=== PATIENT | female | born 1935 | race African-American/Black ===

== ENCOUNTER 2018-07-10 09:00 | Day surgery (SDC) | payer OTHER, MEDICARE ==
[~2018-07-10 09:00] MED LIST: FENTANYL CITR 100 MCG/2 ML ONE; LIDOCAINE 1% MPF 5 ML VIAL ONE; PROPOFOL 200 MG/20 ML VIAL IV ONE
--- NOTE | 2018-07-10 09:08 | RAD REPORT ---
EXAM DESCRIPTION: RAD - Chest Pa And Lat (2 Views) - 07/10/2018 9:01 am CLINICAL HISTORY: preop Chest pain. COMPARISON: Chest Single View dated 07/24/2017; Chest Single View dated 03/11/2017; Chest Single View dated 01/13/2017; Chest Single View dated 10/04/2015 FINDINGS: Several calcified benign granulomata are present in the lungs. No focal infiltrate is seen . The heart is mildly enlarged in size. No displaced fractures. IMPRESSION: Mild cardiomegaly.
--- OUTSIDE RECORDS SUMMARY | 2018-07-10 09:11 | XMS REPORT | Clinical Summary ---
:1935 Author Organization [facility] Address [address] [place] [address] Care Team Providers Name Role Phone Asked, No Pcp Primary Care Provider Unavailable Allergies Not on File Medications No known medications Active Problems No known active problems Encounters Date Type Specialty Care Team Description 07/09/2018 Hospital Encounter Radiology Andrew Gray MD 07/09/2018 Office Visit Orthopedic Surgery Andrew Gray Lipoma of right upper MD Jatinder extremity (Primary Dx) after 07/09/2017 Social History Tobacco Use Types Packs/Day Years Used Date Never Smoker Alcohol Use Drinks/Week oz/Week Comments Yes 1 Glasses of wine Sex Assigned at Date Recorded Not on file Job Start Date Occupation Industry Not on file Not on file Not on file Travel History Travel Start Travel End No recent travel history available. Last Filed Vital Signs Not on file Plan of Treatment Health Maintenance Due Date Last Done Comments SHINGLES VACCINES (#1) 1984 65+ PNEUMOCOCCAL VACCINE (1 of 2 - PCV13) 1999 PNEUMOCOCCAL POLYSACCHARIDE VACCINE AGE 65 AND OVER 1999 INFLUENZA VACCINE 12/18/2017 Results Not on fileafter 07/09/2017 Insurance Payer Benefit Plan / Group Subscriber ID Type Phone Address MEDICARE MEDICARE PART A AND B xxxxxxxxxxx Medicare [place], [place] AARP AARP SUPPLEMENT xxxxxxxxxxx Commercial Advance Directives Patient has advance care planning documents on file. For more information, please contact:[address] [address]
[2018-07-10] MEDS ORDERED: LIDOCAINE 1% MPF 30 ML VIAL ONE (09:20)
[2018-07-10] MEDS ORDERED: Ringers Lactate 1,000 ML IV ONE (09:39)
[2018-07-10] MEDS ORDERED: MIDAZOLAM HCL 2 MG/2 ML INJ ONE (09:42)
[2018-07-10] MEDS ORDERED: CEFAZOLIN/SWI 1gm 1 GM/10 ML SYR ONE (09:50)
[2018-07-10] MEDS ORDERED: ONDANSETRON 4 MG/2 ML VIAL ONE (10:57)
[2018-07-10] MEDS ORDERED: KETOROLAC 30 MG/ML INJ ONE (11:35)
[2018-07-10 11:45] VITALS: TEMP 97.9
[2018-07-10] MEDS ORDERED: HYDROCODONE/APAP 7.5/325 MG TAB ONE (12:08)
[2018-07-10] MEDS ORDERED: CODEINE 30MG/APAP 300MG TAB ONE (12:10)
[2018-07-10 12:56] VITALS: BP 182/76; O2SAT 98
--- NOTE | 2018-07-10 21:24 | OP ---
Date of Procedure: 07/10/2018 Surgeon: Jarvis Castro MD Preoperative Diagnosis: Right-sided headache, rule out temporal arteritis. Postoperative Diagnosis: Right-sided headache, rule out temporal arteritis. Procedure: Right temporal artery biopsy, Doppler guided. Estimated Blood Loss: Minimal. Specimen: Right temporal artery. Finding: As above. Anesthesia: MAC. Complication: None. Disposition: The patient tolerated the procedure in stable condition and was taken to recovery in go od general condition. Description Of Procedure: The patient was brought to the OR and placed in supine position. MAC anes thesia was begun. The patient was prepped and draped in usual sterile fashion. Doppler device was u sed to localize a branch of the temporal artery at the anterior-superior part of the right ear. A 4- cm incision was made. Subcutaneous tissue was divided, artery identified, branches identified, the p roximal-distal control obtained, and then a 4-cm segment was excised and sent to Pathology. Wound wa s irrigated. Bleeding was controlled with cautery. After 4-0 silk was used to tie off the ends of t he branch, then 4-0 chromic was used to reapproximate subcutaneous tissue and close the skin. Steril e dressing was applied. The patient was awakened and taken to Recovery in good general condition. Discharge Note: The patient will go to Day Surgery and home when stable. Disposition: Home. Condition: Stable. Discharge Instructions: Resume home medications and diet. Activity as tolerated. No heavy lifting. Remove outer dressing in 2 days. Shower. Keep wound clean and dry. Keep Steri-Strips on at all t imes. Follow up in my office in 2 weeks. Call for appointment. Follow up with Dr. Cooper in 1 week. Call for appointment. MAX/PHILLIP Voice ID: [id number] Report ID: [id number]
--- NOTE | 2018-07-10 21:39 | EKG ---
Test Date: 2018-07-10 Test Time: 08:45:00 Recruitment Manager: YAYO MEASUREMENT RESULTS: Intervals: Rate: 55 MN: 178 QRSD: 82 QT: 396 QTc: 378 [place]: P: 18 MN: 178 QRS: 5 T: 27 INTERPRETIVE STATEMENTS: Sinus bradycardia Abnormal ECG Compared to ECG 07/24/2017 01:24:47 Left ventricular hypertrophy no longer present Electronically Signed On 07-10-18 21:37:00 RATE ANALYST by Brian Powell
== END 2018-07-10 12:45 | disposition home or self-care (01) ==
LOC: OR 09:00
PROVIDERS: ATTEND Surgery
PROC: 03BS0ZX Excision of Right Temporal Artery, Open Approach, Diagnostic (ICD-10-PCS; principal; 2018-07-10 09:30)
DX: R51 Headache (principal); I51.7 Cardiomegaly
CPT/HCPCS: 37609; 71046; 88305; 93005; J0690; J2250; J2405; J2704; J3010

== ENCOUNTER 2018-08-09 19:21 | Emergency (ER) | payer OTHER, MEDICARE ==
--- OUTSIDE RECORDS SUMMARY | 2018-08-09 19:23 | XMS REPORT | Clinical Summary ---
:1935 Author Organization [facility] Address [address] [place] [address] Care Team Providers Name Role Phone Asked, No Pcp Primary Care Provider Unavailable Allergies Not on File Medications No known medications Active Problems No known active problems Encounters Date Type Specialty Care Team Description 07/09/2018 Hospital Encounter Radiology Andrew Gray MD 07/09/2018 Office Visit Orthopedic Surgery Andrew Gray Lipoma of right upper MD Jatinder extremity (Primary Dx) after 08/08/2017 Social History Tobacco Use Types Packs/Day Years [...] 65 AND OVER 1999 INFLUENZA VACCINE 12/18/2017 Procedures Procedure Name Priority Date/Time Associated Diagnosis Comments MRI UPPER EXTREMITY Routine 06/11/2018 12:23 PM Results for this EXTERNAL STUDY BACKBREAKER procedure are in the results section. after 08/08/2017 Results MRI Upper Extremity External Study (06/11/2018 12:23 PM BACKBREAKER) Narrative Performed At This exam was not acquired at a [facility] facility and has not been [facility] interpreted by a [facility] Provider.The exam was imported into our imaging system for comparisons purposes. Performing Organization Address [facility] Phone Number [facility] [address] [place] [address] after 08/08/2017 Insurance Payer Benefit Plan / Group Subscriber ID Type Phone Address MEDICARE MEDICARE PART A AND B xxxxxxxxxxx Medicare [place], [place] AARP AARP SUPPLEMENT xxxxxxxxxxx Commercial Advance Directives Patient has advance care planning documents on file. For more information, please contact:Ronak [address] [place] [address]
[2018-08-09 20:30] LABS: Absolute Lymphocytes (CBC) 1.3 K/uL (0.7-4.9); Absolute Monocytes 0.6 K/uL (0.1-1.3); Absolute Neutrophil 8.7 K/uL (1.8-8.0); Basophils % 0.1 % (0-1.3); Hematocrit 30.6 % (36.0-45.0); Lymphocytes % 12.3 % (15.3-44.8); MPV 9.6 fL (7.6-11.3); Monocytes % 5.9 % (3.3-12.3); Protime INR 1.13; RBC Red Blood Cell Count 2.99 M/uL (3.86-4.86)
--- NOTE | 2018-08-09 20:30 | RAD REPORT ---
EXAM DESCRIPTION: Enzo Single View3 8:15 pm CLINICAL HISTORY: Chest pain COMPARISON: 06/2018 FINDINGS: Calcified lung granulomas are present. The lungs appear clear of acute infiltrate. The heart is normal size IMPRESSION: No acute abnormalities displayed
[2018-08-09 20:46] LABS: ALT/SGPT 32 U/L (12-78); AST/SGOT 14 U/L (15-37); Albumin 3.1 g/dL (3.4-5.0); Alkaline Phosphatase 59 U/L (45-117); BUN Blood Urea Nitrogen 20 mg/dL (7-18); Bicarbonate 29 mmol/L (21-32); Bilirubin Direct 0.1 mg/dL (0-0.2); Bilirubin Total 0.4 mg/dL (0.2-1.0); Glucose Level 235 mg/dL (74-106); Magnesium 1.7 mg/dL (1.8-2.4); NT PRO-BNP 200 pg/mL (<450); Potassium 3.5 mmol/L (3.5-5.1); Protein, Total 6.9 g/dL (6.4-8.2); Sodium Level 136 mmol/L (136-145); Troponin (Emerg Dept Use Only) < 0.02 ng/mL (0.0-0.045)
[2018-08-09] MEDS ORDERED: MAGNESIUM SULFATE 1 gm IVPB 1 GM/100 ML BAG IV ONE (21:27)
--- NOTE | 2018-08-09 22:22 | EDPHYS ---
Physician Documentation [facility] Name: Mulu Jimenez Age: 83 yrs Sex: Female : 1935 Arrival Date: 08/09/2018 Time: 19:24 Bed 8 Private MD: Wayne Cooper V ED Physician Tony Lloyd HPI: 08/09 21:08 This 83 yrs old Black Female presents to ER via Ambulatory with complaints of Chest jr8 Tightness, fast heart rate. 21:08 The patient presents with a history of heart racing. Context: The symptoms occur at jr8 rest. Onset: The symptoms/episode began/occurred acutely, today. Duration: The patient or guardian reports multiple episodes, that are intermittent, that wax and wane. Modifying factors: The symptoms are aggravated by nothing. The symptoms are alleviated by nothing. Associated signs and symptoms: Pertinent positives: chest pain. Severity of symptoms: At their worst the symptoms were mild in the emergency department the symptoms are unchanged. The patient has not experienced similar symptoms in the past. The patient has not recently seen a physician. Historical: - Allergies: 20:04 Phenergan; aa1 - Home Meds: 20:04 amlodipine 5 mg tab 1 tab once daily [Active]; atenolol 25 mg Oral tab 1 tab once daily aa1 [Active]; clonidine HCl 0.1 mg Oral tab 1 tab as needed [Active]; losartan-hydrochlorothiazide 50-12.5 mg Oral tab 1 tab once daily [Active]; prednisone 20 mg Oral tab once daily [Active]; - PMHx: 20:04 GERD; Hypertension; temporal arteritis; aa1 - PSHx: 20:04 Hysterectomy; aa1 - Immunization history:: Flu vaccine is not up to date. - Social history:: Smoking status: Patient/guardian denies using tobacco. - Ebola Screening: : No symptoms or risks identified at this time. ROS: 21:08 Eyes: Negative for injury, pain, redness, and discharge, ENT: Negative for injury, jr8 pain, and discharge, Neck: Negative for injury, pain, and swelling, Respiratory: Negative for shortness of breath, cough, wheezing, and pleuritic chest pain, Abdomen/GI: Negative for abdominal pain, nausea, vomiting, diarrhea, and constipation, Back: Negative for injury and pain, MS/Extremity: Negative for injury and deformity, Skin: Negative for injury, rash, and discoloration, Neuro: Negative for headache, weakness, numbness, tingling, and seizure. 21:08 Cardiovascular: Positive for chest pain, palpitations, Negative for edema, orthopnea, paroxysmal nocturnal dyspnea. Exam: 21:08 Eyes: Pupils equal round and reactive to light, extra-ocular motions intact. Lids and jr8 lashes normal. Conjunctiva and sclera are non-icteric and not injected. Cornea within normal limits. Periorbital areas with no swelling, redness, or edema. ENT: Nares patent. No nasal discharge, no septal abnormalities noted. Tympanic membranes are normal and external auditory canals are clear. Oropharynx with no redness, swelling, or masses, exudates, or evidence of obstruction, uvula midline. Mucous membranes moist. Neck: Trachea midline, no thyromegaly or masses palpated, and no cervical lymphadenopathy. Supple, full range of motion without nuchal rigidity, or vertebral point tenderness. No Meningismus. Chest/axilla: Normal chest wall appearance and motion. Nontender with no deformity. No lesions are appreciated. Cardiovascular: Regular rate and rhythm with a normal S1 and S2. No gallops, murmurs, or rubs. Normal PMI, no JVD. No pulse deficits. Respiratory: Lungs have equal breath sounds bilaterally, clear to auscultation and percussion. No rales, rhonchi or wheezes noted. No increased work of breathing, no retractions or nasal flaring. Abdomen/GI: Soft, non-tender, with normal bowel sounds. No distension or tympany. No guarding or rebound. No evidence of tenderness throughout. Back: No spinal tenderness. No costovertebral tenderness. Full range of motion. Skin: Warm, dry with normal turgor. Normal color with no rashes, no lesions, and no evidence of cellulitis. MS/ Extremity: Pulses equal, no cyanosis. Neurovascular intact. Full, normal range of motion. Neuro: Awake and alert, GCS 15, oriented to person, place, time, and situation. Cranial nerves II-XII grossly intact. Motor strength 5/5 in all extremities. Sensory grossly intact. Cerebellar exam normal. Normal gait. Vital Signs: 19:35 BP 139 / 76; Pulse 89; Resp 18; Temp 99.3; Pulse Ox 98% on R/A; Weight 71.21 kg; Height aa1 5 ft. 5 in. (165.10 cm); Pain 0/10; 20:38 BP 123 / 74; Pulse 77; Resp 16; Pulse Ox 98% on R/A; Pain 0/10; aa1 21:42 BP 140 / 80; Pulse 71; Resp 16; Temp 98.8; Pulse Ox 96% on R/A; Pain 0/10; aa1 22:31 BP 135 / 70; Pulse 69; Resp 16; Temp 98.7; Pulse Ox 98% on R/A; Pain 0/10; aa1 19:35 Body Mass Index 26.13 (71.21 kg, 165.10 cm) aa1 MDM: 19:54 Patient medically screened. jr8 21:52 Data reviewed: vital signs, nurses notes, lab test result(s), EKG, radiologic studies, jr8 plain films. Data interpreted: Pulse oximetry: on room air is 96 %. Interpretation: normal. Counseling: I had a detailed discussion with the patient and/or guardian regarding: the historical points, exam findings, and any diagnostic results supporting the discharge/admit diagnosis, lab results, radiology results, the need for outpatient follow up, a cost controller, a family practitioner, to return to the emergency department if symptoms worsen or persist or if there are any questions or concerns that arise at home. Response to treatment: the patient's symptoms have resolved after treatment. 08/09 19:54 Order name: Basic Metabolic Panel; Complete Time: 21:08/09 19:54 Order name: CBC with Diff; Complete Time: 21:08/09 19:54 Order name: LFT's; Complete Time: 21:08/09 19:54 Order name: Magnesium; Complete Time: 21:08/09 19:54 Order name: NT PRO-BNP; Complete Time: 21:08/09 19:54 Order name: PT-INR; Complete Time: 21:08/09 19:54 Order name: Troponin (emerg Dept Use Only); Complete Time: 21:08/09 19:54 Order name: XRAY Chest (1 view); Complete Time: 21:08/09 19:54 Order name: EKG; Complete Time: 19:55 08/09 19:54 Order name: Cardiac monitoring; Complete Time: 19:55 08/09 19:54 Order name: EKG - Nurse/Tech; Complete Time: 19:55 08/09 19:54 Order name: IV Saline Lock; Complete Time: 20:22 08/09 19:54 Order name: Labs collected and sent; Complete Time: 20:08/09 19:54 Order name: O2 Per Protocol; Complete Time: 19:55 08/09 19:54 Order name: O2 Sat Monitoring; Complete Time: 19:55 Administered Medications: 21:23 Drug: Magnesium Sulfate 1 grams Route: IVPB; Infused Over: 1 hrs; Site: left hand; aa1 22:25 Follow up: IV Status: Completed infusion aa1 Disposition: 08/09/18 22:22 Discharged to Home. Impression: Palpitations. - Condition is Stable. - Discharge Instructions: Palpitations. - Medication Reconciliation Form, Thank You Letter, Antibiotic Education, Prescription Opioid Use form. - Follow up: Wayne Cooper; When: 2 - 3 days; Reason: Recheck today's complaints, Continuance of care, Re-evaluation by your physician. Follow up: Brian Powell; When: 2 - 3 days; Reason: Recheck today's complaints, Continuance of care, Re-evaluation by your physician. - Problem is new. - Symptoms are resolved. Addendum: 08/13/2018 21:57 Co-signature as Attending Physician, Tony Lloyd MD. g s Signatures: Dispatcher [employer] [facility] Ana Laura Duron RN RN aa1 John Ochoa PA PA jr8 Tony Lloyd MD MD Corrections: (The following items were deleted from the chart) 08/09 22:36 22:22 08/09/2018 22:22 Discharged to Home. Impression: Palpitations. Condition is aa1 Stable. Discharge Instructions: Palpitations. Forms are Medication Reconciliation Form, Thank You Letter, Antibiotic Education, Prescription Opioid Use. Follow up: Wayne Cooper; When: 2 - 3 days; Reason: Recheck today's complaints, Continuance of care, Re-evaluation by your physician. Follow up: Brian Powell; When: 2 - 3 days; Reason: Recheck today's complaints, Continuance of care, Re-evaluation by your physician. Problem is new. Symptoms are resolved. jr8
--- NOTE | 2018-08-09 22:22 | ER ---
Nurse's Notes [facility] Name: Mulu Jimenez Age: 83 yrs Sex: Female : 1935 Arrival Date: 08/09/2018 Time: 19:24 Bed 8 Private MD: Wayne Cooper V Diagnosis: Palpitations Presentation: 08/09 19:35 Presenting complaint: Patient states: int chest pressure and palpitations since 1700 aa1 this evening. Denies pain. States, "I just get a little pressure every now and then and then I feel like my heart flutters. Denies SOB. Pt smiling in triage. Reports she was recently started on prednisone for temporal arteritis and has never taken it before and is unsure if that might be related to her symptoms. Transition of care: patient was not received from another setting of care. Onset of symptoms was August 09, 2018 at 17:00. Risk Assessment: Do you want to hurt yourself or someone else? Patient reports no desire to harm self or others. Initial Sepsis Screen: Does the patient meet any 2 criteria? No. Patient's initial sepsis screen is negative. Does the patient have a suspected source of infection? No. Patient's initial sepsis screen is negative. Care prior to arrival: None. 19:35 Method Of Arrival: Ambulatory aa1 19:35 Acuity: ROMINA 3 aa1 Historical: - Allergies: 20:04 Phenergan; aa1 - Home Meds: 20:04 amlodipine 5 mg tab 1 tab once daily [Active]; atenolol 25 mg Oral tab 1 tab once daily aa1 [Active]; clonidine HCl 0.1 mg Oral tab 1 tab as needed [Active]; losartan-hydrochlorothiazide 50-12.5 mg Oral tab 1 tab once daily [Active]; prednisone 20 mg Oral tab once daily [Active]; - PMHx: 20:04 GERD; Hypertension; temporal arteritis; aa1 - PSHx: 20:04 Hysterectomy; aa1 - Immunization history:: Flu vaccine is not up to date. - Social history:: Smoking status: Patient/guardian denies using tobacco. - Ebola Screening: : No symptoms or risks identified at this time. Screenin:40 Abuse screen: Denies threats or abuse. Denies injuries from another. Nutritional aa1 screening: No deficits noted. On. Tuberculosis screening: No symptoms or risk factors identified. Fall Risk None identified. Assessment: 19:40 General: Appears in no apparent distress. comfortable, Behavior is calm, cooperative, aa1 appropriate for age. Pain: Complains of pain in diaphragm and xyphoid area Pain does not radiate. Pain currently is 0 out of 10 on a pain scale. Quality of pain is described as pressure, Pain began 3 hours ago. Is intermittent. Neuro: Level of Consciousness is awake, alert, obeys commands, Oriented to person, place, time, situation. Cardiovascular: Reports palpitations, Heart tones S1 S2 present Capillary refill < 3 seconds Clubbing of nail beds is absent JVD is absent Patient's skin is warm and dry. Rhythm is regular. Respiratory: Airway is patent Respiratory effort is even, unlabored, Respiratory pattern is regular, symmetrical. GI: No signs and/or symptoms were reported involving the gastrointestinal system. : No signs and/or symptoms were reported regarding the genitourinary system. EENT: No signs and/or symptoms were reported regarding the EENT system. Derm: Skin is intact, is healthy with good turgor, Skin is pink, warm \\T\\ dry. 20:38 Reassessment: Patient appears in no apparent distress at this time. Patient and/or aa1 family updated on plan of care and expected duration. Pain level reassessed. Patient is alert, oriented x 3, equal unlabored respirations, skin warm/dry/pink. Awaiting lab results. 21:42 Reassessment: Patient appears in no apparent distress at this time. Patient and/or aa1 family updated on plan of care and expected duration. Pain level reassessed. Patient is alert, oriented x 3, equal unlabored respirations, skin warm/dry/pink. IV magnesium infusing; will d/c home once complete. 22:31 Reassessment: Patient appears in no apparent distress at this time. Patient is alert, aa1 oriented x 3, equal unlabored respirations, skin warm/dry/pink. Discussed d/c \\T\\ f/u instructions with pt; denies questions or concerns at this time. Amb to lobby with steady gait Patient denies pain at this time. Patient states feeling better. Vital Signs: 19:35 BP 139 / 76; Pulse 89; Resp 18; Temp 99.3; Pulse Ox 98% on R/A; Weight 71.21 kg; Height aa1 5 ft. 5 in. (165.10 cm); Pain 0/10; 20:38 BP 123 / 74; Pulse 77; Resp 16; Pulse Ox 98% on R/A; Pain 0/10; aa1 21:42 BP 140 / 80; Pulse 71; Resp 16; Temp 98.8; Pulse Ox 96% on R/A; Pain 0/10; aa1 22:31 BP 135 / 70; Pulse 69; Resp 16; Temp 98.7; Pulse Ox 98% on R/A; Pain 0/10; aa1 19:35 Body Mass Index 26.13 (71.21 kg, 165.10 cm) aa1 ED Course: 19:24 Patient arrived in ED. mr 19:24 Wayne Cooper MD is Private Physician. mr 19:27 [facility] jr8 19:27 Tony Lloyd MD is Attending Physician. jr8 19:35 Arm band placed on right wrist. aa1 19:40 Patient has correct armband on for positive identification. Placed in gown. Bed in low aa1 position. Call light in reach. desk monitor on. Pulse ox on. NIBP on. Warm blanket given. 19:40 EKG done, by ED staff, reviewed by John KNAPP. Patient maintains SpO2 saturation aa1 greater than 95% on room air. 19:55 Ana Laura Duron, RN is Primary Nurse. aa1 19:59 Triage completed. aa1 20:15 XRAY Chest (1 view) In Process Unspecified. EDMS 20:21 Inserted saline lock: 22 gauge in left hand, using aseptic technique. Blood collected. oe 22:22 Wayne Cooper MD is Referral Physician. jr8 22:22 Brian Powell MD is Referral Physician. jr8 22:31 No provider procedures requiring assistance completed. IV discontinued, intact, aa1 bleeding controlled, No redness/swelling at site. Pressure dressing applied. Administered Medications: 21:23 Drug: Magnesium Sulfate 1 grams Route: IVPB; Infused Over: 1 hrs; Site: left hand; aa1 22:25 Follow up: IV Status: Completed infusion aa1 Outcome: 22:22 Discharge ordered by . jr8 22:31 Discharged to home ambulatory, with friend. aa1 22:31 Condition: good 22:31 Discharge instructions given to patient, Instructed on discharge instructions, follow up and referral plans. Demonstrated understanding of instructions, follow-up care. 22:36 Patient left the ED. aa1 Signatures: Dispatcher [employer] Ana Laura Dsouza RN RN aa1 Ginny Javier mr John Ochoa PA PA jr8 Rk Borjas
[2018-08-09 23:50] VITALS: BP 135/70; TEMP 98.7; O2SAT 98
--- NOTE | 2018-08-10 09:41 | EKG ---
Test Date: 2018-08-09 Test Time: 19:41:51 Edge Kitter: IGOR MEASUREMENT RESULTS: Intervals: Rate: 86 HI: 148 QRSD: 76 QT: 334 QTc: 399 [place]: P: 4 HI: 148 QRS: -6 T: 9 INTERPRETIVE STATEMENTS: Normal sinus rhythm Moderate voltage criteria for LVH, may be normal variant Borderline ECG Compared to ECG 07/10/2018 08:45:00 Left ventricular hypertrophy now present Sinus bradycardia no longer present Electronically Signed On 08-10-18 09:39:59 CDT by Brian Powell
== END 2018-08-09 22:36 | disposition home or self-care (01) ==
LOC: ER 19:21
DX: R00.2 Palpitations (principal); I10 Essential (primary) hypertension; K21.9 Gastro-esophageal reflux disease without esophagitis; Z88.8 Allergy status to other drugs, medicaments and biological substances
CPT/HCPCS: 96365; 93005; 85025; 80048; 36415; 83735; 85610; 80076; 84484; 83880; 71045; 99285; J3475

== ENCOUNTER 2019-03-27 05:26 | Emergency (ER) | payer OTHER, MEDICARE ==
--- NOTE | 2019-03-27 06:26 | ER ---
Nurse's Notes [facility] Name: Mulu Jimneez Age: 83 yrs Sex: Female : 1935 Arrival Date: 03/27/2019 Time: 05:27 Bed 17 Private MD: Diagnosis: Essential (primary) hypertension Presentation: 03/27 05:30 Presenting complaint: Patient states: "I was awakened from sleep an hour ago due to cc3 headache and ringing in both of my ears which usually happens when my blood pressure reading is high. I also feel nauseated and chest heaviness". Transition of care: patient was not received from another setting of care. Onset of symptoms was March 27, 2019 at 04:30. Risk Assessment: Do you want to hurt yourself or someone else? Patient reports no desire to harm self or others. Initial Sepsis Screen: Does the patient meet any 2 criteria? No. Patient's initial sepsis screen is negative. Does the patient have a suspected source of infection? No. Patient's initial sepsis screen is negative. Care prior to arrival: None. 05:30 Method Of Arrival: Ambulatory cc3 05:30 Acuity: ROMINA 3 cc3 Triage Assessment: 05:30 General: Appears in no apparent distress. uncomfortable, Behavior is calm, cooperative, cc3 appropriate for age. Pain: Complains of pain in head Pain currently is 6 out of 10 on a pain scale. Quality of pain is described as aching, Pain began 1 hour ago. EENT: No signs and/or symptoms were reported regarding the EENT system. Neuro: Level of Consciousness is awake, alert, obeys commands, Oriented to person, place, time, situation, Appropriate for age. Cardiovascular: Heart tones S1 S2 present Capillary refill < 3 seconds in bilateral fingers Patient's skin is warm and dry. Chest pain quality is heaviness. Respiratory: Airway is patent Respiratory effort is even, unlabored, Respiratory pattern is regular, symmetrical, Breath sounds are clear bilaterally. GI: Abdomen is round non-distended, Bowel sounds present X 4 quads. Abd is soft and non tender X 4 quads. : No signs and/or symptoms were reported regarding the genitourinary system. Derm: Skin is intact, is healthy with good turgor, Skin is normal, black. Musculoskeletal: Circulation, motion, and sensation intact. Range of motion: intact in all extremities. Historical: - Allergies: 05:30 Phenergan; cc3 - Home Meds: 05:30 amlodipine 5 mg tab 1 tab once daily [Active]; atenolol 25 mg Oral tab 1 tab once daily cc3 [Active]; clonidine HCl 0.1 mg Oral tab 1 tab as needed [Active]; losartan-hydrochlorothiazide 50-12.5 mg Oral tab 1 tab once daily [Active]; prednisone 20 mg Oral tab once daily [Active]; - PMHx: 05:30 GERD; Hypertension; Temporal Arteritis; cc3 - Immunization history:: Adult Immunizations not up to date. - Social history:: Smoking status: Patient/guardian denies using tobacco, but has a distant history of tobacco abuse. - Ebola Screening: : No symptoms or risks identified at this time. Screenin:30 Abuse screen: Denies threats or abuse. Denies injuries from another. Nutritional cc3 screening: No deficits noted. Tuberculosis screening: No symptoms or risk factors identified. Fall Risk Ambulatory Aid- None/Bed Rest/Nurse Assist (0 pts). Gait- Normal/Bed Rest/Wheelchair (0 pts) Mental Status- Oriented to own ability (0 pts). Assessment: 05:30 General: see triage assessment. cc3 06:45 Reassessment: Patient appears in no apparent distress at this time. Patient and/or cc3 family updated on plan of care and expected duration. Pain level reassessed. Patient is alert, oriented x 3, equal unlabored respirations, skin warm/dry/pink. DIRECTOR OF REGIONAL SALES Michelle discharged the patient home with prescription given. No IV cannula in situ. Patient left ER vitally stable and ambulatory. NO valuables left in the patient's room. Patient denies pain at this time. Patient states feeling better. Patient states symptoms have improved. Vital Signs: 05:30 BP 183 / 86; Pulse 70; Resp 18 S; Temp 97.9(O); Pulse Ox 100% on R/A; Weight 72.12 kg cc3 (R); Height 5 ft. 5 in. (165.10 cm) (R); Pain 6/10; 06:15 BP 150 / 67; Pulse 62; Resp 17 S; Pulse Ox 100% on R/A; cc3 06:45 BP 144 / 66; Pulse 62; Resp 15 S; Pulse Ox 99% on R/A; Pain 0/10; cc3 05:30 Body Mass Index 26.46 (72.12 kg, 165.10 cm) cc3 ED Course: 05:27 Patient arrived in ED. ds1 05:30 Patient has correct armband on for positive identification. Placed in gown. Bed in low cc3 position. Call light in reach. Side rails up X2. ekg monitor on. Pulse ox on. NIBP on. 05:30 Arm band placed on right wrist. Patient notified of wait time. EKG completed in triage. cc3 Results shown to MD. 05:41 Yessi Cross is Primary Nurse. cc3 05:42 Hugh Brothers MD is Attending Physician. pkl 05:47 Triage completed. cc3 06:11 Michelle Faria FNP-C is PHCP. snw 06:11 Hugh Brothers MD is Attending Physician. snw 06:20 Wayne Cooper MD is Referral Physician. snw 06:45 No provider procedures requiring assistance completed. Patient did not have IV access cc3 during this emergency room visit. Administered Medications: No medications were administered Outcome: 06:25 Discharge ordered by MD. snw 06:45 Discharged to home ambulatory. cc3 06:45 Condition: stable 06:45 Discharge instructions given to patient, Instructed on discharge instructions, follow up and referral plans. medication usage, Demonstrated understanding of instructions, follow-up care, medications, Prescriptions given X 1. 06:47 Patient left the ED. cc3 Signatures: Hugh Brothers MD MD pkMichelle Workman FNP-C INFORMATION ASSURANCE MANAGER-Csnw Ama Smith ds1 Yessi Cross cc3 Corrections: (The following items were deleted from the chart) 05:53 05:30 Presenting complaint: Patient states: "I was awakened from sleep an hour ago due cc3 to headache and ringing in both of my ears which usually happens when my blood pressure reading is high. I also feel chest heaviness" cc3
--- NOTE | 2019-03-27 06:27 | EDPHYS ---
Physician Documentation [facility] Name: Mulu Jimenez Age: 83 yrs Sex: Female : 1935 Arrival Date: 03/27/2019 Time: 05:27 Bed 17 Private MD: ED Physician Hugh Brothers HPI: 03/27 07:08 This 83 yrs old Black Female presents to ER via Ambulatory with complaints of High snw Blood Pressure. 07:08 The patient has elevated blood pressure and discovered this at home, with a home snw device. Onset: The symptoms/episode began/occurred suddenly. Modifying factors: The symptoms are alleviated by clonidine prn. Associated signs and symptoms: The patient has no apparent associated signs or symptoms. Severity of symptoms:. Severity of symptoms: At its worst the blood pressure was moderate. The patient has experienced similar episodes in the past. The patient has been recently seen by a physician: the patient's primary care provider, Dr. Cooper. pt is aware she can take clonidine 0.1mg BID prn but did not know she could take them closer than 12 hours apart. Historical: - Allergies: 05:30 Phenergan; cc3 - Home Meds: 05:30 amlodipine 5 mg tab 1 tab once daily [Active]; atenolol 25 mg Oral tab 1 tab once daily cc3 [Active]; clonidine HCl 0.1 mg Oral tab 1 tab as needed [Active]; losartan-hydrochlorothiazide 50-12.5 mg Oral tab 1 tab once daily [Active]; prednisone 20 mg Oral tab once daily [Active]; - PMHx: 05:30 GERD; Hypertension; Temporal Arteritis; cc3 - Immunization history:: Adult Immunizations not up to date. - Social history:: Smoking status: Patient/guardian denies using tobacco, but has a distant history of tobacco abuse. - Ebola Screening: : No symptoms or risks identified at this time. ROS: 07:04 Constitutional: Negative for fever, chills, and weight loss, pt states she gets ringing snw in her ears and awakes from sleep when her pressure is high Eyes: Negative for injury, pain, redness, and discharge, ENT: Negative for injury, pain, and discharge, Neck: Negative for injury, pain, and swelling, Cardiovascular: Negative for chest pain, palpitations, and edema, Respiratory: Negative for shortness of breath, cough, wheezing, and pleuritic chest pain, Abdomen/GI: Negative for abdominal pain, nausea, vomiting, diarrhea, and constipation, Back: Negative for injury and pain, : Negative for injury, bleeding, discharge, and swelling, MS/Extremity: Negative for injury and deformity, Skin: Negative for injury, rash, and discoloration, Neuro: Negative for headache, weakness, numbness, tingling, and seizure. Exam: 06:32 Constitutional: This is a well developed, well nourished patient who is awake, alert, snw and in no acute distress. Head/Face: Normocephalic, atraumatic. Eyes: Pupils equal round and reactive to light, extra-ocular motions intact. Lids and lashes normal. Conjunctiva and sclera are non-icteric and not injected. Cornea within normal limits. Periorbital areas with no swelling, redness, or edema. ENT: Nares patent. No nasal discharge, no septal abnormalities noted. Tympanic membranes are normal and external auditory canals are clear. Oropharynx with no redness, swelling, or masses, exudates, or evidence of obstruction, uvula midline. Mucous membranes moist. Neck: Trachea midline, no thyromegaly or masses palpated, and no cervical lymphadenopathy. Supple, full range of motion without nuchal rigidity, or vertebral point tenderness. No Meningismus. Chest/axilla: Normal chest wall appearance and motion. Nontender with no deformity. No lesions are appreciated. Cardiovascular: Regular rate and rhythm with a normal S1 and S2. No gallops, murmurs, or rubs. Normal PMI, no JVD. No pulse deficits. Respiratory: Lungs have equal breath sounds bilaterally, clear to auscultation and percussion. No rales, rhonchi or wheezes noted. No increased work of breathing, no retractions or nasal flaring. Back: No spinal tenderness. No costovertebral tenderness. Full range of motion. Skin: Warm, dry with normal turgor. Normal color with no rashes, no lesions, and no evidence of cellulitis. MS/ Extremity: Pulses equal, no cyanosis. Neurovascular intact. Full, normal range of motion. Neuro: Awake and alert, GCS 15, oriented to person, place, time, and situation. Cranial nerves II-XII grossly intact. Motor strength 5/5 in all extremities. Sensory grossly intact. Cerebellar exam normal. Normal gait. Psych: Awake, alert, with orientation to person, place and time. Behavior, mood, and affect are within normal limits. Vital Signs: 05:30 BP 183 / 86; Pulse 70; Resp 18 S; Temp 97.9(O); Pulse Ox 100% on R/A; Weight 72.12 kg cc3 (R); Height 5 ft. 5 in. (165.10 cm) (R); Pain 6/10; 06:15 BP 150 / 67; Pulse 62; Resp 17 S; Pulse Ox 100% on R/A; cc3 06:45 BP 144 / 66; Pulse 62; Resp 15 S; Pulse Ox 99% on R/A; Pain 0/10; cc3 05:30 Body Mass Index 26.46 (72.12 kg, 165.10 cm) cc3 MDM: 05:42 Patient medically screened. pkl 06:33 Data reviewed: vital signs, nurses notes. Data interpreted: Pulse oximetry: on room air snw is 100 %. Interpretation: normal. Counseling: I had a detailed discussion with the patient and/or guardian regarding: the historical points, exam findings, and any diagnostic results supporting the discharge/admit diagnosis, the presence of at least one elevated blood pressure reading (>120/80) during this emergency department visit, the need for outpatient follow up, for definitive care, to return to the emergency department if symptoms worsen or persist or if there are any questions or concerns that arise at home. Special discussion: I have referred the patient to see his PCP for further evaluation of high blood pressure. Based on the history and exam findings, there is no indication for further emergent testing or inpatient evaluation. I discussed with the patient/guardian the need to see the primary care provider for further evaluation of the symptoms. Administered Medications: No medications were administered Disposition: 03/27/19 06:25 Discharged to Home. Impression: Essential (primary) hypertension. - Condition is Stable. - Discharge Instructions: Hypertension, Managing Your Hypertension. - Prescriptions for Clonidine 0.1 mg Oral Tablet - take 1 tablet by ORAL route every 12 hours; 60 tablet. - Medication Reconciliation Form, Thank You Letter, Antibiotic Education, Prescription Opioid Use form. - Follow up: Wayne Cooper MD; When: 2 - 3 days; Reason: Recheck today's complaints, Continuance of care, Re-evaluation by your physician. Follow up: Emergency Department; When: As needed; Reason: Worsening of condition. Signatures: Hugh Brothers MD MD pkl Therrien, Shelly, [employer] [employer] Rosalba Crosse cc3 Corrections: (The following items were deleted from the chart) 06:47 06:25 03/27/2019 06:25 Discharged to Home. Impression: Essential (primary) cc3 hypertension. Condition is Stable. Forms are Medication Reconciliation Form, Thank You Letter, Antibiotic Education, Prescription Opioid Use. Follow up: Wayne Cooper; When: 2 - 3 days; Reason: Recheck today's complaints, Continuance of care, Re-evaluation by your physician. Follow up: Emergency Department; When: As needed; Reason: Worsening of condition. snw
[2019-03-27 07:11] VITALS: BP 150/67; TEMP 97.9; O2SAT 100
--- NOTE | 2019-03-29 12:52 | EKG ---
Test Date: 2019-03-27 Test Time: 05:53:39 Wastewater Treatment Engineer: MARIN MEASUREMENT RESULTS: Intervals: Rate: 60 UT: 234 QRSD: 80 QT: 410 QTc: 410 [place]: P: 42 UT: 234 QRS: -5 T: 23 INTERPRETIVE STATEMENTS: Sinus rhythm with 1st degree AV block Minimal voltage criteria for LVH, may be normal variant Cannot rule out Anterior infarct, age undetermined Abnormal ECG Compared to ECG 08/09/2018 19:41:51 First degree AV block now present Myocardial infarct finding now present Electronically Signed On 03-29-19 12:46:03 SCRAP SAWYER by Yoan Perez
== END 2019-03-27 06:47 | disposition home or self-care (01) ==
LOC: ER 05:26
DX: I10 Essential (primary) hypertension (principal); K21.9 Gastro-esophageal reflux disease without esophagitis; Z88.8 Allergy status to other drugs, medicaments and biological substances
CPT/HCPCS: 93005; 99284

== ENCOUNTER 2019-04-28 05:10 | Emergency (ER) | payer OTHER, MEDICARE ==
[2019-04-28] MEDS ORDERED: HYDRALAZINE HCL 20 MG/ML VIAL ONE (05:32)
--- NOTE | 2019-04-28 06:39 | ER ---
Nurse's Notes [facility] Name: Mulu Jimenez Age: 83 yrs Sex: Female : 1935 Arrival Date: 04/28/2019 Time: 05:15 Bed 6 Private MD: Diagnosis: Hypertensive urgency Presentation: 04/28 05:23 Presenting complaint: Patient states: she woke up and didn't feel well so she checked aa1 her BP and it was 199/91. Reports taking her clonidine which improved BP to 170's systolic but then it started to come back up again 45 mins later. C/O headache 12/27. Denies any other symptoms. Transition of care: patient was not received from another setting of care. Onset of symptoms was April 28, 2019. Risk Assessment: Do you want to hurt yourself or someone else? Patient reports no desire to harm self or others. Initial Sepsis Screen: Does the patient meet any 2 criteria? No. Patient's initial sepsis screen is negative. Does the patient have a suspected source of infection? No. Patient's initial sepsis screen is negative. Care prior to arrival: None. 05:23 Method Of Arrival: Ambulatory aa1 05:23 Acuity: ROMINA 3 aa1 Triage Assessment: 05:26 General: Appears in no apparent distress. comfortable, Behavior is calm, cooperative, aa1 appropriate for age. Historical: - Allergies: 05:26 Phenergan; aa1 - Home Meds: 05:26 amlodipine 5 mg tab 1 tab once daily [Active]; atenolol 25 mg Oral tab 1 tab once daily aa1 [Active]; clonidine HCl 0.1 mg Oral tab 1 tab as needed [Active]; 07:50 Edarbi oral oral [Active]; aa5 - PMHx: 05:26 GERD; Hypertension; Temporal Arteritis; aa1 - PSHx: 05:26 None; aa1 - Immunization history:: Flu vaccine is not up to date. - Social history:: Smoking status: Patient/guardian denies using tobacco. - Ebola Screening: : No symptoms or risks identified at this time. Screenin:40 Abuse screen: Denies threats or abuse. Nutritional screening: No deficits noted. jb4 Tuberculosis screening: No symptoms or risk factors identified. Fall Risk None identified. Assessment: 05:40 General: Appears in no apparent distress. comfortable, Behavior is calm, cooperative, jb4 appropriate for age. Pain: Complains of pain in headache. Pain does not radiate. Pain currently is 8 out of 10 on a pain scale. Neuro: Level of Consciousness is awake, alert, obeys commands, Oriented to person, place, time, situation. Cardiovascular: Patient's skin is warm and dry. Respiratory: Airway is patent Respiratory effort is even, unlabored, Respiratory pattern is regular, symmetrical. GI: No signs and/or symptoms were reported involving the gastrointestinal system. : No signs and/or symptoms were reported regarding the genitourinary system. EENT: No signs and/or symptoms were reported regarding the EENT system. Derm: Skin is intact, Skin is dry, Skin is normal, Skin temperature is warm. Musculoskeletal: Circulation, motion, and sensation intact. Range of motion: intact in all extremities. 06:18 Reassessment: Patient appears in no apparent distress at this time. Patient and/or jb4 family updated on plan of care and expected duration. Pain level reassessed. Patient is alert, oriented x 3, equal unlabored respirations, skin warm/dry/pink. Patient denies pain at this time. 06:52 Reassessment: Patient appears in no apparent distress at this time. Patient and/or jb4 family updated on plan of care and expected duration. Pain level reassessed. Patient is alert, oriented x 3, equal unlabored respirations, skin warm/dry/pink. D/c pending, pt being kept for further observation after administration of Clonidine. 07:50 Neuro: Level of Consciousness is awake, alert, obeys commands, Oriented to person, aa5 place, time, situation. Respiratory: Airway is patent Respiratory effort is even, unlabored, Respiratory pattern is regular, symmetrical. Derm: Skin is dry, Skin is normal, Skin temperature is warm. 07:50 Reassessment: Patient states feeling better. Denies any symptoms at this time . aa5 Vital Signs: 05:26 BP 184 / 76; Pulse 71; Resp 18; Temp 97.1; Pulse Ox 100% on R/A; Weight 73.03 kg; aa1 Height 5 ft. 10 in. (177.80 cm); Pain 8/10; 06:15 BP 173 / 71; Pulse 72; Resp 16; Pulse Ox 100% on R/A; jb4 06:30 BP 166 / 71; Pulse 66; Resp 16; Pulse Ox 100% on R/A; jb4 06:45 BP 165 / 70; Pulse 68; Resp 16 S; Pulse Ox 100% on R/A; aa5 07:30 BP 168 / 72; Pulse 65; Resp 18 S; Pulse Ox 100% on R/A; aa5 05:26 Body Mass Index 23.10 (73.03 kg, 177.80 cm) aa1 ED Course: 05:15 Patient arrived in ED. ag3 05:23 Juan J Jorgensen MD is Attending Physician. tw4 05:25 Triage completed. aa1 05:26 Arm band placed on right wrist. Patient placed in an exam room, on a stretcher. aa1 05:27 Lane Cheema, RN is Primary Nurse. jb4 05:40 Patient has correct armband on for positive identification. Bed in low position. Call jb4 light in reach. Side rails up X 1. Pulse ox on. NIBP on. 05:40 Inserted saline lock: 20 gauge in left antecubital area, using aseptic technique. jb4 07:50 No provider procedures requiring assistance completed. IV discontinued, intact, aa5 bleeding controlled, No redness/swelling at site. Pressure dressing applied. Administered Medications: 05:45 Drug: hydrALAZINE 10 mg Route: IV; Rate: bolus; Site: left antecubital; jb4 06:32 Follow up: Response: No adverse reaction; Blood pressure is lowered jb4 06:50 Drug: cloNIDine 0.1 mg Route: PO; jb4 Outcome: 06:39 Discharge ordered by . tw4 07:50 Discharged to home ambulatory. aa5 07:50 Condition: stable 07:50 Discharge instructions given to patient, Instructed on discharge instructions, follow up and referral plans. Demonstrated understanding of instructions, follow-up care, Pt states "Dr. Cooper changed my losartan to Edarbi but I haven't taken the new medication yet". Pt instructed to continue medications as prescribed. 08:01 Patient left the ED. aa5 Signatures: Ana Laura Duron RN RN aa1 Brooklyn Flores RN RN aa5 Lane Cheema, CHANDLER ARTEAGA jb4 Juan J Jorgensen MD MD 4 Norma Garcia 3 Corrections: (The following items were deleted from the chart) 06:23 06:18 Reassessment: Patient appears in no apparent distress at this time. Patient jb4 and/or family updated on plan of care and expected duration. Pain level reassessed. Patient is alert, oriented x 3, equal unlabored respirations, skin warm/dry/pink. jb4 08:07 05:26 Home Meds: losartan-hydrochlorothiazide 50-12.5 mg Oral tab 1 tab once daily; aa1 aa5
--- NOTE | 2019-04-28 06:40 | EDPHYS ---
Physician Documentation [facility] Name: Mulu Jimenez Age: 83 yrs Sex: Female : 1935 Arrival Date: 04/28/2019 Time: 05:15 Bed 6 Private MD: ED Physician Juan J Jorgensen HPI: 04/28 06:34 This 83 yrs old Black Female presents to ER via Ambulatory with complaints of High tw4 Blood Pressure. 06:34 The patient has elevated blood pressure and discovered this at home, with a home tw4 device. Onset: The symptoms/episode began/occurred just prior to arrival. Modifying factors: The symptoms are aggravated by. Associated signs and symptoms: The patient has no apparent associated signs or symptoms. Severity of symptoms: At its worst the blood pressure was 190 mm Hg. The patient has not experienced similar symptoms in the past. Historical: - Allergies: 05:26 Phenergan; aa1 - Home Meds: 05:26 amlodipine 5 mg tab 1 tab once daily [Active]; atenolol 25 mg Oral tab 1 tab once daily aa1 [Active]; clonidine HCl 0.1 mg Oral tab 1 tab as needed [Active]; 07:50 Edarbi oral oral [Active]; aa5 - PMHx: 05:26 GERD; Hypertension; Temporal Arteritis; aa1 - PSHx: 05:26 None; aa1 - Immunization history:: Flu vaccine is not up to date. - Social history:: Smoking status: Patient/guardian denies using tobacco. - Ebola Screening: : No symptoms or risks identified at this time. ROS: 06:34 Constitutional: Negative for fever, chills, and weight loss, Eyes: Negative for injury, tw4 pain, redness, and discharge, Cardiovascular: Negative for chest pain, palpitations, and edema, Respiratory: Negative for shortness of breath, cough, wheezing, and pleuritic chest pain, Abdomen/GI: Negative for abdominal pain, nausea, vomiting, diarrhea, and constipation, Back: Negative for injury and pain. 06:34 Neuro: Positive for headache, Negative for altered mental status, dizziness, gait disturbance, hearing loss, loss of consciousness, numbness, seizure activity, speech changes, syncope, near syncope, tinnitus, tremor, visual changes. Exam: 06:34 Constitutional: This is a well developed, well nourished patient who is awake, alert, tw4 and in no acute distress. Head/Face: Normocephalic, atraumatic. Chest/axilla: Normal chest wall appearance and motion. Nontender with no deformity. No lesions are appreciated. Cardiovascular: Regular rate and rhythm with a normal S1 and S2. No gallops, murmurs, or rubs. Normal PMI, no JVD. No pulse deficits. Respiratory: Lungs have equal breath sounds bilaterally, clear to auscultation and percussion. No rales, rhonchi or wheezes noted. No increased work of breathing, no retractions or nasal flaring. Abdomen/GI: Soft, non-tender, with normal bowel sounds. No distension or tympany. No guarding or rebound. No evidence of tenderness throughout. MS/ Extremity: Pulses equal, no cyanosis. Neurovascular intact. Full, normal range of motion. Neuro: Awake and alert, GCS 15, oriented to person, place, time, and situation. Cranial nerves II-XII grossly intact. Motor strength 5/5 in all extremities. Sensory grossly intact. Cerebellar exam normal. Normal gait. Vital Signs: 05:26 BP 184 / 76; Pulse 71; Resp 18; Temp 97.1; Pulse Ox 100% on R/A; Weight 73.03 kg; aa1 Height 5 ft. 10 in. (177.80 cm); Pain 8/10; 06:15 BP 173 / 71; Pulse 72; Resp 16; Pulse Ox 100% on R/A; jb4 06:30 BP 166 / 71; Pulse 66; Resp 16; Pulse Ox 100% on R/A; jb4 06:45 BP 165 / 70; Pulse 68; Resp 16 S; Pulse Ox 100% on R/A; aa5 07:30 BP 168 / 72; Pulse 65; Resp 18 S; Pulse Ox 100% on R/A; aa5 05:26 Body Mass Index 23.10 (73.03 kg, 177.80 cm) aa1 MDM: 05:24 Patient medically screened. tw4 06:34 Differential diagnosis: hypertensive crisis, Malignant HTN. Data reviewed: vital signs, tw4 nurses notes. Data interpreted: Pulse oximetry: Interpretation: normal. Counseling: I had a detailed discussion with the patient and/or guardian regarding: the historical points, exam findings, and any diagnostic results supporting the discharge/admit diagnosis, the presence of at least one elevated blood pressure reading (>120/80) during this emergency department visit. Medication response: hydralazine. Response to treatment: the patient's symptoms have markedly improved after treatment, and as a result, I will discharge patient. Administered Medications: 05:45 Drug: hydrALAZINE 10 mg Route: IV; Rate: bolus; Site: left antecubital; jb4 06:32 Follow up: Response: No adverse reaction; Blood pressure is lowered 4 06:50 Drug: cloNIDine 0.1 mg Route: PO; jb4 Disposition: 04/28/19 06:39 Discharged to Home. Impression: Hypertensive urgency. - Condition is Stable. - Discharge Instructions: Hypertension During , Managing Your Hypertension. - Medication Reconciliation Form, Thank You Letter, Antibiotic Education, Prescription Opioid Use form. - Follow up: Private Physician; When: Upon discharge from the Emergency Department; Reason: Recheck today's complaints, Continuance of care. - Problem is new. - Symptoms have improved. Signatures: Ana Laura Duron RN RN aa1 Brooklyn Flores RN RN aa5 Lane Cheema, CHANDLER RN jb4 Juan J Jorgensen MD MD tw4 Corrections: (The following items were deleted from the chart) 08:01 06:39 04/28/2019 06:39 Discharged to Home. Impression: Hypertensive urgency. Condition aa5 is Stable. Forms are Medication Reconciliation Form, Thank You Letter, Antibiotic Education, Prescription Opioid Use. Follow up: Private Physician; When: Upon discharge from the Emergency Department; Reason: Recheck today's complaints, Continuance of care. Problem is new. Symptoms have improved. tw4 08:07 05:26 Home Meds: losartan-hydrochlorothiazide 50-12.5 mg Oral tab 1 tab once daily; aa1 aa5
[2019-04-28] MEDS ORDERED: cloNIDine HCL 0.1 MG TAB ONE (06:46)
[2019-04-28 08:07] VITALS: TEMP 97.1; O2SAT 100
[2019-04-28 08:12] VITALS: BP 168/72
== END 2019-04-28 08:01 | disposition home or self-care (01) ==
LOC: ER 05:10
DX: I16.0 Hypertensive urgency (principal); Z88.8 Allergy status to other drugs, medicaments and biological substances
CPT/HCPCS: 96374; 99284; J0360

== ENCOUNTER 2019-09-06 11:13 | Emergency (ER) | payer OTHER, MEDICARE ==
[2019-09-06] MEDS ORDERED: MAGNE/ALUM HYDROXD 30 ML UCUP ONE (11:59)
[2019-09-06] MEDS ORDERED: LIDOCAINE VISCOUS 2% SOLN 15 ML UDC ONE (11:59)
[2019-09-06 12:14] LABS: Absolute Lymphocytes (CBC) 1.7 K/uL (0.7-4.9); Basophils % 2.2 % (0-1.3); Hematocrit 34.3 % (36.0-45.0); Lymphocytes % 34.9 % (15.3-44.8); MPV 9.9 fL (7.6-11.3); RBC Red Blood Cell Count 3.32 M/uL (3.86-4.86)
[2019-09-06 12:19] LABS: ALT/SGPT 26 U/L (12-78); AST/SGOT 20 U/L (15-37); Albumin 3.7 g/dL (3.4-5.0); Alkaline Phosphatase 79 U/L (45-117); BUN Blood Urea Nitrogen 12 mg/dL (7-18); Bicarbonate 28 mmol/L (21-32); Bilirubin Direct 0.1 mg/dL (0-0.2); Bilirubin Total 0.6 mg/dL (0.2-1.0); Glucose Level 111 mg/dL (74-106); Lipase 59 U/L (73-393); NT PRO-BNP 321 pg/mL (<450); Potassium 3.8 mmol/L (3.5-5.1); Protein, Total 7.7 g/dL (6.4-8.2); Sodium Level 140 mmol/L (136-145); Troponin (Emerg Dept Use Only) < 0.02 ng/mL (0.0-0.045)
--- NOTE | 2019-09-06 12:45 | RAD REPORT ---
EXAM DESCRIPTION: RAD - Chest Single View - 09/06/2019 12:04 pm CLINICAL HISTORY: CHEST PAIN COMPARISON: August 09 portable TECHNIQUE: AP portable chest image was obtained 09/06/2019 12:04 pm . FINDINGS: Lung volumes are low compared to priors no peripheral mass or consolidation. No failure or volume overload. Granulomatous calcifications are present. Heart and vasculature are normal. No jaylyn urable pleural effusion and no pneumothorax. No acute bony abnormality seen. No acute aortic findings suspected. IMPRESSION: No acute cardiopulmonary process. No significant change from comparison.
--- NOTE | 2019-09-06 14:00 | RAD REPORT ---
EXAM DESCRIPTION: CT - Angio Aorta For Dissection - 09/06/2019 1:05 pm CLINICAL HISTORY: abd pain, ches tpain COMPARISON: None. TECHNIQUE: Dynamically enhanced 3 mm thick images of the chest, abdomen, and upper pelvis were obtai lalo during administration of approximately 150mL Isovue 370 IV contrast. Sagittal and coronal reconst ruction images were generated using MIP and reviewed. Exam utilizes a protocol to evaluate entire cou rse of the aorta. All CT scans are performed using dose optimization technique as appropriate and may include automated exposure control or mA/KV adjustment according to patient size. FINDINGS: Aorta is normal in diameter with no dissection or other acute aortic findings. Reconstruct ion images show no significant findings. Atherosclerotic calcifications are present. There is mild crissy magdaleno narrowing of each internal iliac artery. Pulmonary arteries are normal as well. No cardiomegaly, pericardial thickening or pericardial effusio n. No mass or infiltrate in the lung parenchyma. Mild bronchiectasis changes are present. No pleural thi ckening, pleural effusion or pneumothorax. No abnormal mediastinal or hilar mass or lymphadenopathy seen. Granulomatous calcifications are prese nt. No chest wall mass or abnormal axillary lymphadenopathy. 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 Superior mesenteric artery is norm al diameter. Inferior mesenteric artery is patent. No renal artery abnormality seen. Solid abdominal viscera and bowel show no significant findings. No acute gallbladder or biliary tree finding seen. G allstones can be occult. No mass or abnormal lymphadenopathy. No free air, free fluid or inflammator y stranding. No urinary bladder abnormality. Disc and bony degenerative changes are present. Left convex scoliotic curvature present in the lumbar spine. IMPRESSION: Negative CT scan of the aorta for acute or significant finding. 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 Mild stenosis at the internal guy c arteries. Celiac artery stenosis is not likely significant given the widely patent SMA and OMA. No other significant findings on chest, abdomen and upper pelvis examination.
--- NOTE | 2019-09-06 14:48 | ER ---
Nurse's Notes [facility] Name: Mulu Jimenez Age: 84 yrs Sex: Female : 1935 Arrival Date: 09/06/2019 Time: 11:15 Bed 6 Private MD: Wayne Cooper V Diagnosis: Unspecified abdominal pain;Chest pain, unspecified;Gastro-esophageal reflux disease Presentation: 09/05 11:17 Chief complaint: Patient states: chest pain and generalized abd pain that began aa5 yesterday around 11pm. Pt states "I have acid reflux and I don't know if that is what this is". Pt reports mild SOB. Reports nausea, denies vomiting. 11:17 Coronavirus screen: Patient denies a cough. Patient reports shortness of breath or aa5 difficulty breathing. Patient denies measured and/or subjective temperature greater than 100.4F prior to today's visit. Patient denies travel on a cruise ship or to a country the [facility] currently lists as an affected area. Patient denies contact with known and/or suspected case of COVID-19. Ebola Screen: Patient negative for fever greater than or equal to 101.5 degrees Fahrenheit, and additional compatible Ebola Virus Disease symptoms. Initial Sepsis Screen: Does the patient meet any 2 criteria? No. Patient's initial sepsis screen is negative. Does the patient have a suspected source of infection? No. Patient's initial sepsis screen is negative. Risk Assessment: Do you want to hurt yourself or someone else? Patient reports no desire to harm self or others. Onset of symptoms was August 2019. 11:17 Acuity: ROMINA 3 aa5 11:17 Method Of Arrival: Ambulatory aa5 Historical: - Allergies: 11:28 Phenergan; aa5 - Home Meds: 12:13 amlodipine 5 mg tab 1 tab once daily [Active]; atenolol 25 mg Oral tab 1 tab once daily jl7 [Active]; clonidine HCl 0.1 mg Oral tab 1 tab as needed [Active]; Edarbi Oral [Active]; prednisone 20 mg Oral tab once daily [Active]; - PMHx: 11:28 GERD; Hypertension; Temporal Arteritis; Pre-diabetes; aa5 - PSHx: 12:13 None; jl7 - Immunization history:: Adult Immunizations up to date, Flu vaccine is up to date. - Social history:: Smoking status: Patient denies any tobacco usage or history of. - Family history:: not pertinent. - Hospitalizations: : No recent hospitalization is reported. Screenin:03 Abuse screen: Denies threats or abuse. Denies injuries from another. Nutritional jl7 screening: No deficits noted. Tuberculosis screening: No symptoms or risk factors identified. Fall Risk IV access (20 points). Total Lemons Fall Scale indicates No Risk (0-24 pts). Assessment: 11:45 General: Appears in no apparent distress. uncomfortable, Behavior is calm, cooperative, jl7 appropriate for age. Pain: Complains of pain in abdomen diffusely Pain does not radiate. Pain currently is 6 out of 10 on a pain scale. Pain began 2-3 days ago. Is continuous. Neuro: Level of Consciousness is awake, alert, obeys commands, Oriented to person, place, time, situation. Cardiovascular: Patient's skin is warm and dry. Respiratory: Airway is patent Respiratory effort is even, unlabored, Respiratory pattern is regular, symmetrical. GI: Reports nausea. : Denies burning with urination. Derm: Skin is pink, warm \\T\\ dry. 12:13 Reassessment: Patient states feeling better. Patient states symptoms have improved. jl7 13:00 Reassessment: Patient appears in no apparent distress at this time. No changes from jl7 previously documented assessment. Patient and/or family updated on plan of care and expected duration. Pain level reassessed. Patient is alert, oriented x 3, equal unlabored respirations, skin warm/dry/pink. 14:30 Reassessment: Dr. Durand at bedside discussing results and POC. jl7 Vital Signs: 11:29 BP 193 / 88; Pulse 66; Resp 16 S; Temp 98.7(O); Pulse Ox 97% on R/A; Weight 72.57 kg aa5 (R); Height 5 ft. 5 in. (165.10 cm) (R); Pain 6/10; 12:03 BP 170 / 72; Pulse 56; Resp 19 S; Pulse Ox 99% on R/A; jl7 13:00 BP 159 / 69; Pulse 57; Resp 15; Pulse Ox 100% on R/A; jl7 14:02 BP 155 / 72; Pulse 50; Resp 16; Pulse Ox 97% ; jl7 11:29 Body Mass Index 26.63 (72.57 kg, 165.10 cm) aa5 ED Course: 11:15 Patient arrived in ED. ag5 11:15 Wayne Cooper MD is Private Physician. ag5 11:17 Arm band placed on Patient placed in an exam room, on a stretcher. aa5 11:20 Jm Durand MD is Attending Physician. rn 11:28 Triage completed. aa5 11:34 Initial lab(s) drawn, by ED staff, sent to lab. EKG done, by ED staff, reviewed by carlie Durand MD. Inserted saline lock: 20 gauge in left antecubital area, using aseptic technique. Blood collected. 11:47 Debbi Laws RN is Primary Nurse. jl7 12:03 Patient has correct armband on for positive identification. Placed in gown. Bed in low jl7 position. Call light in reach. Side rails up X 1. plant quality manager on. Pulse ox on. NIBP on. 12:04 XRAY Chest (1 view) In Process Unspecified. EDMS 12:04 Patient maintains SpO2 saturation greater than 95% on room air. jl7 13:05 CT completed. Patient tolerated procedure well. Patient moved back from CT. mw3 13:05 CT Aorta for Dissection In Process Unspecified. EDMS 14:47 Wayne Cooper MD is Referral Physician. rn 15:02 Removal of peripheral IV. Catheter intact, dressing applied. jp3 15:09 No provider procedures requiring assistance completed. IV discontinued, intact, jl7 bleeding controlled, No redness/swelling at site. Pressure dressing applied. Administered Medications: 11:57 Drug: GI Cocktail without - (Maalox Suspension 30 ml, Lidocaine Liquid 2 % 15 jl7 ml) Route: PO; 12:13 Follow up: Response: No adverse reaction; Marked relief of symptoms jl7 Outcome: 14:48 Discharge ordered by . rn 15:09 Discharged to home ambulatory. jl7 15:09 Condition: stable 15:09 Discharge instructions given to patient, Instructed on discharge instructions, follow up and referral plans. Demonstrated understanding of instructions, follow-up care. 15:10 Patient left the ED. jl7 Signatures: Dispatcher [employer] EDMS Jm Durand MD MD rn Calderon, Audri, RN RN aa5 Debbi Laws RN RN jl7 Judy Izquierdo mw3 Curly Luna jp3 Staci Dexter RN RN ca1 Krys Esposito ag5 Corrections: (The following items were deleted from the chart) 14:03 13:55 BP 159 / 69; Pulse 57bpm; Resp 15bpm; Pulse Ox 100% RA; ca1 jl7
--- NOTE | 2019-09-06 14:49 | EDPHYS ---
Physician Documentation [facility] Name: Mulu Jimenez Age: 84 yrs Sex: Female : 1935 Arrival Date: 09/06/2019 Time: 11:15 Bed 6 Private MD: Wayne Cooper V ED Physician Jm Durand HPI: 09/05 11:51 This 84 yrs old Black Female presents to ER via Ambulatory with complaints of Chest rn Pain, Abd Pain > 50 y/o. 11:51 The patient or guardian reports chest pain that is located primarily in the substernal rn area, epigastric area. Onset: last night. The pain radiates to the left arm. The chest pain is described as burning. Duration: The patient or guardian reports multiple episodes, that are intermittent. Modifying factors: The symptoms are alleviated by nothing. the symptoms are aggravated by nothing. Severity of pain: At its worst the pain was moderate in the emergency department the pain has improved. The patient has not experienced similar symptoms in the past. Reports abd burning, chest pain, and left arm pain that began last night, stomach started first, has acid reflux, no fever/cough/sob/vomiting/diarrhea. Reports better when sitting upright. Had neg stress test this last March.. Historical: - Allergies: 11:28 Phenergan; aa5 - Home Meds: 12:13 amlodipine 5 mg tab 1 tab once daily [Active]; atenolol 25 mg Oral tab 1 tab once daily jl7 [Active]; clonidine HCl 0.1 mg Oral tab 1 tab as needed [Active]; Edarbi Oral [Active]; prednisone 20 mg Oral tab once daily [Active]; - PMHx: 11:28 GERD; Hypertension; Temporal Arteritis; Pre-diabetes; aa5 - PSHx: 12:13 None; jl7 - Immunization history:: Adult Immunizations up to date, Flu vaccine is up to date. - Social history:: Smoking status: Patient denies any tobacco usage or history of. - Family history:: not pertinent. - Hospitalizations: : No recent hospitalization is reported. ROS: 11:51 Constitutional: Negative for fever, chills, and weight loss, Eyes: Negative for injury, rn pain, redness, and discharge, Neck: Negative for injury, pain, and swelling, Cardiovascular: Negative for edema Respiratory: Negative for shortness of breath, cough, wheezing, and pleuritic chest pain, Abdomen/GI: Negative for nausea, vomiting, diarrhea, and constipation, MS/Extremity: Negative for injury and deformity, Skin: Negative for injury, rash, and discoloration, Neuro: Negative for headache, weakness, numbness, tingling, and seizure. Exam: 11:48 ECG was reviewed by the Attending Physician. rn 11:51 Constitutional: This is a well developed, well nourished patient who is awake, alert, rn and in no acute distress. Ambulatory to room without distress or assistance. Head/Face: Normocephalic, atraumatic. Cardiovascular: Regular rate and rhythm. No pulse deficits. Respiratory: Clear bilateral breath sounds. No increased work of breathing, no retractions or nasal flaring. Abdomen/GI: soft, non-tender Skin: Warm, dry, no evidence of cellulitis. MS/ Extremity: Pulses equal, no cyanosis. Neurovascular intact. Full, normal range of motion. Equal circumference. Neuro: Awake and alert, GCS 15, oriented to person, place, time, and situation. Cranial nerves II-XII grossly intact. Motor strength 5/5 in all extremities. Sensory grossly intact. Cerebellar exam normal. Normal gait. Vital Signs: 11:29 BP 193 / 88; Pulse 66; Resp 16 S; Temp 98.7(O); Pulse Ox 97% on R/A; Weight 72.57 kg aa5 (R); Height 5 ft. 5 in. (165.10 cm) (R); Pain 6/10; 12:03 BP 170 / 72; Pulse 56; Resp 19 S; Pulse Ox 99% on R/A; jl7 13:00 BP 159 / 69; Pulse 57; Resp 15; Pulse Ox 100% on R/A; jl7 14:02 BP 155 / 72; Pulse 50; Resp 16; Pulse Ox 97% ; jl7 11:29 Body Mass Index 26.63 (72.57 kg, 165.10 cm) aa5 MDM: 11:20 Patient medically screened. rn 14:45 Differential diagnosis: acute pericarditis, anxiety, chest wall pain, cholecystitis, rn Cholelithiasis costochondritis, esophagitis, gastritis, gastroesophageal reflux disease (GERD), pancreatitis, peptic ulcer disease, pericarditis, pleurisy, pneumonia, pneumothorax, stable angina, thoracic aortic disection. Data reviewed: vital signs, nurses notes, lab test result(s), EKG, radiologic studies, CT scan, plain films, and as a result, I will discharge patient. Test interpretation: by ED physician or midlevel provider: ECG, plain radiologic studies, CXR neg for pneumonia or pneumothorax. Counseling: I had a detailed discussion with the patient and/or guardian regarding: the historical points, exam findings, and any diagnostic results supporting the discharge/admit diagnosis, lab results, radiology results, the need for outpatient follow up, to return to the emergency department if symptoms worsen or persist or if there are any questions or concerns that arise at home. Medication response: GI Cocktail relieved the patient's pain. The symptoms have resolved. Response to treatment: the patient's symptoms have markedly improved after treatment, and as a result, I will discharge patient. Special discussion: Based on the patient's history, exam, and Dx evaluation, there is no indication for emergent intervention or inpatient Tx. It is understood by the patient/guardian that if the Sx's persist or worsen they need to return immediately for re-evaluation. Based on the patient's Hx, exam, and Dx evaluation, there is no indication for emergent surgery or inpatient Tx. It is understood by the patient/guardian that if the Sx's persist or worsen they need to return immediately for re-evaluation. I discussed with the patient/guardian in detail that at this point there is no indication for admission to the hospital. It is understood, however, that if the symptoms persist or worsen the patient needs to return immediately for re-evaluation. 14:45 ED course: ECG normal, trop neg, normal stress test with Dr. Powell in March, pain rn relieved with Gi cocktail, neg ct aorta. Will dc home with Dr. Cooper f/u. . 09/05 11:47 Order name: Basic Metabolic Panel; Complete Time: 12: rn 09/05 11:47 Order name: CBC with Diff; Complete Time: 12: rn 09/05 11:47 Order name: LFT's; Complete Time: 12: rn 09/05 11:47 Order name: NT PRO-BNP; Complete Time: 12: rn 09/05 11:47 Order name: Troponin (emerg Dept Use Only); Complete Time: 12: rn 09/05 11:47 Order name: Lipase; Complete Time: 12:29 rn 09/05 11:47 Order name: XRAY Chest (1 view); Complete Time: 12:46 rn 09/05 11:47 Order name: EKG; Complete Time: 11:48 rn 09/05 11:47 Order name: Cardiac monitoring; Complete Time: 11: rn 09/05 11:47 Order name: EKG - Nurse/Tech; Complete Time: : rn 09/05 11:47 Order name: IV Saline Lock; Complete Time: 11: rn 09/05 11:47 Order name: Labs collected and sent; Complete Time: : rn 09/05 12:30 Order name: CT Aorta for Dissection; Complete Time: 14:03 rn 09/05 11:47 Order name: O2 Per Protocol; Complete Time: rn 09/05 11:47 Order name: O2 Sat Monitoring; Complete Time: rn EC:48 Rate is 62 beats/min. Rhythm is regular. QRS Fidelity is Normal. IA interval is normal. QRS rn interval is normal. QT interval is normal. No Q waves. T waves are Normal. No ST changes noted. Clinical impression: Normal ECG. Interpreted by me. Reviewed by me. Administered Medications: 11:57 Drug: GI Cocktail without - (Maalox Suspension 30 ml, Lidocaine Liquid 2 % 15 jl7 ml) Route: PO; 12:13 Follow up: Response: No adverse reaction; Marked relief of symptoms jl7 Disposition: 09/06/19 14:48 Discharged to Home. Impression: Unspecified abdominal pain, Chest pain, unspecified, Gastro-esophageal reflux disease. - Condition is Stable. - Discharge Instructions: Abdominal Pain, Adult, Nonspecific Chest Pain, Gastroesophageal Reflux Disease, Adult. - Medication Reconciliation Form, Thank You Letter, Antibiotic Education, Prescription Opioid Use form. - Follow up: Wayne Cooper MD; When: As needed; Reason: Recheck today's complaints, Re-evaluation by your physician. - Problem is new. - Symptoms have improved. Signatures: Dispatcher [employer] EDMS Jm Durand MD MD rn Calderon, Audri, RN RN aa5 Debbi Laws RN RN jl7 Corrections: (The following items were deleted from the chart) 15:10 14:48 09/06/2019 14:48 Discharged to Home. Impression: Unspecified abdominal pain; jl7 Chest pain, unspecified; Gastro-esophageal reflux disease. Condition is Stable. Forms are Medication Reconciliation Form, Thank You Letter, Antibiotic Education, Prescription Opioid Use. Follow up: Wayne Cooper; When: As needed; Reason: Recheck today's complaints, Re-evaluation by your physician. Problem is new. Symptoms have improved. rn
[2019-09-06 15:16] VITALS: TEMP 98.7
[2019-09-06 15:20] VITALS: BP 155/72; O2SAT 97
--- NOTE | 2019-09-07 16:25 | EKG ---
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
== END 2019-09-06 15:10 | disposition home or self-care (01) ==
LOC: ER 11:13
DX: K21.9 Gastro-esophageal reflux disease without esophagitis (principal); R10.9 Unspecified abdominal pain; I10 Essential (primary) hypertension; R73.03 Prediabetes; Z88.8 Allergy status to other drugs, medicaments and biological substances
CPT/HCPCS: 93005; 85025; 80048; 36415; 80076; 84484; 83690; 83880; 71275; 74175; 71045; Q9967; 99285

== ENCOUNTER 2020-01-26 22:52 | Observation (INO) | payer OTHER, MEDICARE ==
--- OUTSIDE RECORDS SUMMARY | 2020-01-26 22:53 | XMS REPORT | Clinical Summary ---
:1935 Author Organization [facility] Address [address] [place] [address] Care Team Providers Name Role Phone Asked, No Pcp Primary Care Provider Unavailable Allergies Not on File Medications No known medications Active Problems No known active problems Social History Tobacco Use Types Packs/Day Years [...] VACCINE (1 of 2 - PCV13) 1999 INFLUENZA VACCINE 02/18/2020 Results Not on fileafter 01/25/2019 Insurance Payer Benefit Plan / Subscriber ID Effective Dates Phone Addre ss Type Group MEDICARE MEDICARE PART A xxxxxxxxxxx 1999-Present [facility], [place] Medicare AND B AARP AARP SUPPLEMENT xxxxxxxxxxx 2018-Present Commercial Advance Directives For more information, please contact: [phone] Type Date 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
[2020-01-26 23:34] LABS: Absolute Lymphocytes (CBC) 2.2 K/uL (0.7-4.9); Basophils % 1.7 % (0-1.3); Hematocrit 32.1 % (36.0-45.0); Lymphocytes % 32.3 % (15.3-44.8); MPV 10.4 fL (7.6-11.3); RBC Red Blood Cell Count 3.06 M/uL (3.86-4.86)
[2020-01-26] MEDS ORDERED: ONDANSETRON 4 MG/2 ML VIAL ONE (23:35)
[2020-01-26] MEDS ORDERED: ASPIRIN 81 MG CHEWABLE TABLET ONE (23:35)
[2020-01-26 23:36] LABS: Protime INR 1.03
[2020-01-26 23:54] LABS: ALT/SGPT 24 U/L (12-78); AST/SGOT 19 U/L (15-37); Albumin 3.8 g/dL (3.4-5.0); Alkaline Phosphatase 86 U/L (45-117); BUN Blood Urea Nitrogen 15 mg/dL (7-18); Bicarbonate 26 mmol/L (21-32); Bilirubin Direct < 0.1 mg/dL (0-0.2); Bilirubin Total 0.3 mg/dL (0.2-1.0); Glucose Level 109 mg/dL (74-106); Magnesium 2.2 mg/dL (1.8-2.4); NT PRO-BNP 286 pg/mL (<450); Potassium 3.5 mmol/L (3.5-5.1); Protein, Total 7.8 g/dL (6.4-8.2); Sodium Level 140 mmol/L (136-145); Troponin (Emerg Dept Use Only) < 0.02 ng/mL (0.0-0.045)
[2020-01-27 00:52] LABS: Urine Blood NEGATIVE (NEG); Urine Glucose NEGATIVE (NEG); Urine Protein NEGATIVE (NEG); Urine Specific Gravity 1.015 (1.005-1.030); Urine pH 7.5 (5.0-7.0)
[2020-01-27] MEDS ORDERED: MAGNE/ALUM HYDROXD 30 ML UCUP ONE (01:21)
[2020-01-27] MEDS ORDERED: LIDOCAINE VISCOUS 2% SOLN 15 ML UDC ONE (01:21)
--- NOTE | 2020-01-27 02:08 | ER ---
Nurse's Notes [facility] Name: Mulu Jimenez Age: 84 yrs Sex: Female : 1935 Arrival Date: 01/26/2020 Time: 22:55 Bed 14 Private MD: Diagnosis: Chest pain, unspecified Presentation: 01/25 23:05 Chief complaint: Patient states: Intermittent CP x 1 week. Pt reports this morning was ss a little different because it was radiating across her chest. Coronavirus screen: Client denies travel out of the [place] in the last 14 days. At this time, the client does not indicate any symptoms associated with coronavirus-19. Ebola Screen: Patient denies exposure to infectious person. Patient denies travel to an Ebola-affected area in the 21 days before illness onset. Initial Sepsis Screen: Does the patient meet any 2 criteria? No. Patient's initial sepsis screen is negative. Does the patient have a suspected source of infection? No. Patient's initial sepsis screen is negative. Risk Assessment: Do you want to hurt yourself or someone else? Patient reports no desire to harm self or others. Onset of symptoms was January 19, 2020. 23:05 Method Of Arrival: Ambulatory ss 23:05 Acuity: ROMINA 3 ss Triage Assessment: 23:11 General: Appears uncomfortable, Behavior is cooperative. Pain: Complains of pain in mt2 chest. EENT: No deficits noted. Neuro: No deficits noted. Cardiovascular: Reports chest pain, Rhythm is sinus rhythm. Respiratory: No deficits noted. GI: No deficits noted. : No deficits noted. : No deficits noted. Derm: No deficits noted. Musculoskeletal: No deficits noted. Historical: - Allergies: 23:07 Phenergan; ss - Home Meds: 23:07 Edarbi Oral [Active]; amlodipine 5 mg tab 1 tab once daily [Active]; atenolol 25 mg ss Oral tab 1 tab once daily [Active]; clonidine HCl 0.1 mg Oral tab 1 tab as needed [Active]; prednisone 20 mg Oral tab once daily [Active]; - PMHx: 23:07 GERD; Hypertension; Pre-Diabetes; Temporal Arteritis; ss - Immunization history:: Adult Immunizations up to date. - Social history:: Smoking status: Patient denies any tobacco usage or history of. Screenin:10 Abuse screen: Denies threats or abuse. Nutritional screening: No deficits noted. mt2 Tuberculosis screening: No symptoms or risk factors identified. Fall Risk None identified. Assessment: 23:10 Pain: Complains of pain in anterior aspect of left upper chest and left breast Pain mt2 does not radiate. Pain currently is 5 out of 10 on a pain scale. Quality of pain is described as sharp, Pain began. 01/26 00:29 Reassessment: Patient and/or family updated on plan of care and expected duration. Pain mt2 level reassessed. Patient is alert, oriented x 3, equal unlabored respirations, skin warm/dry/pink. Patient denies pain at this time. General: Appears comfortable, Behavior is calm. Pain: Denies pain. 01:22 Reassessment: Patient and/or family updated on plan of care and expected duration. Pain mt2 level reassessed. Patient is alert, oriented x 3, equal unlabored respirations, skin warm/dry/pink. General: Appears uncomfortable, Behavior is cooperative. Pain: Complains of pain in xyphoid area Pain currently is 5 out of 10 on a pain scale. 02:00 Reassessment: Patient and/or family updated on plan of care and expected duration. Pain mt2 level reassessed. Patient is alert, oriented x 3, equal unlabored respirations, skin warm/dry/pink. Patient denies pain at this time. General: Appears comfortable, Behavior is cooperative. 03:03 Reassessment: Patient and/or family updated on plan of care and expected duration. Pain mt2 level reassessed. Patient is alert, oriented x 3, equal unlabored respirations, skin warm/dry/pink. PATIENT ADMITTED AN ED HOLD. DEFER TO [facility] CHARTING. General: Appears comfortable, Behavior is cooperative. Pain: Denies pain. Vital Signs: 01/25 23:05 BP 181 / 79; Pulse 78; Resp 16; Temp 98.5(TE); Pulse Ox 99% on R/A; Weight 72.57 kg; ss Height 5 ft. 5 in. (165.10 cm); Pain 5/10; 01/26 00:30 BP 154 / 73; Pulse 77; Resp 16; Pulse Ox 97% on R/A; Pain 0/10; mt2 01:22 BP 167 / 79; Pulse 79; Resp 16; Pulse Ox 96% on R/A; Pain 5/10; mt2 02:00 BP 156 / 77; Pulse 73; Resp 16; Pulse Ox 97% on R/A; Pain 0/10; mt2 03:04 BP 178 / 78; Pulse 71; Resp 16; Pulse Ox 96% on R/A; Pain 0/10; mt2 08 23:05 Body Mass Index 26.63 (72.57 kg, 165.10 cm) ED Course: 01/25 22:55 Patient arrived in ED. cl3 22:57 Leno Matta, RN is Primary Nurse. rr5 23:00 Javi Pierce MD is Attending Physician. mh7 23:06 Triage completed. ss 23:07 Arm band placed on right wrist. ss 23:09 Elisa Pedroza, CHANDLER is Primary Nurse. mt2 23:09 EKG done, by ED staff, reviewed by Javi Pierce MD. Patient maintains SpO2 saturation mt2 greater than 95% on room air. 23:10 Patient has correct armband on for positive identification. Placed in gown. Bed in low mt2 position. Call light in reach. Side rails up X 1. 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 Pulse ox on. NIBP on. 23:25 Missed attempt(s): 22 gauge in left forearm. Bleeding controlled, band aid applied, ds4 catheter tip intact. 23:30 Inserted saline lock: 20 gauge in left antecubital area, using aseptic technique. mt2 23:30 Troponin (emerg Dept Use Only) Sent. ds4 23:30 PT-INR Sent. ds4 23:30 NT PRO-BNP Sent. ds4 23:31 Magnesium Sent. ds4 23:31 LFT's Sent. ds4 23:31 CBC with Diff Sent. ds4 23:31 Basic Metabolic Panel Sent. ds4 01/26 00:30 XRAY Chest (1 view) In Process Unspecified. EDMS 01:11 CT Chest For PE Angio In Process Unspecified. EDMS 02:07 Wayne Cooper MD is Hospitalizing Provider. 7 03:02 No provider procedures requiring assistance completed. Patient admitted, IV remains in mt2 place. Administered Medications: 01/25 23:29 Drug: Aspirin Chewable Tablet 324 mg Route: PO; mt2 01/26 00:29 Follow up: Response: No adverse reaction; Pain is decreased mt2 01/25 23:29 Not Given (Patient Refused): morphine 2 mg IVP once; (PAIN>8) RASS on ADMN: Combtv4, mt2 Very Agttd3, Agttd2, Rstlss1, AlertClm0, Drwsy-1, LtSdtn-2, ModSdtn-3, DpSdtn-4, UnArsble-5 x2 23:29 Drug: Zofran (Ondansetron) 4 mg Route: IVP; Site: left antecubital; mt2 01/26 00:00 Follow up: Response: No adverse reaction; Nausea is decreased mt2 01:21 Drug: GI Cocktail without - (Maalox Suspension 30 ml, Lidocaine Liquid 2 % 15 mt2 ml) Route: PO; 02:10 Follow up: Response: No adverse reaction; Pain is decreased mt2 02:36 Drug: Rocephin - (cefTRIAXone) 1 grams Route: IVPB; Infused Over: 30 mins; Site: left mt2 antecubital; 02:36 Drug: AZITHromycin 500 mg Route: IVPB; Infused Over: 1 hrs; Site: left antecubital; mt2 Outcome: 02:07 Decision to Hospitalize by Provider. [facility] 03:02 Admitted to ER Hold. Please see [facility] for further documentation. mt2 03:02 Condition: stable 03:02 Instructed on the need for admit. 11:05 Patient left the ED. jr10 Signatures: Dispatcher [employer] EDMS Arabella Joshi RN RN John Diez ds4 Leno Matta RN RN rr5 Arden Alaniz cl3 Javi Pierce MD MD 7 Elisa Pedroza RN RN mt2 Beryl Javier RN RN jr10
--- NOTE | 2020-01-27 02:08 | EDPHYS ---
Physician Documentation [facility] Name: Mulu Jimenez Age: 84 yrs Sex: Female : 1935 Arrival Date: 01/26/2020 Time: 22:55 Bed 14 Private MD: ED Physician Javi Pierce HPI: 01/25 23:16 This 84 yrs old Black Female presents to ER via Ambulatory with complaints of Chest mh7 Pain. 23:16 The patient or guardian reports chest pain that is located primarily in the anterior mh7 chest wall, left. Onset: today. 23:16 The pain does not radiate. Associated signs and symptoms: Pertinent positives: nausea, mh7 Pertinent negatives: abdominal pain, cough, diaphoresis, dizziness, headache, lower extremity pain, lower extremity swelling, lightheadedness, near syncope, palpitations, recent travel, shortness of breath, syncope, vomiting. The chest pain is described as sharp. Duration: The patient or guardian reports multiple episodes, that are intermittent, that wax and wane, with no pattern. Modifying factors: The symptoms are alleviated by nothing. the symptoms are aggravated by nothing. Severity of pain: At its worst the pain was moderate today, in the emergency department the pain has improved moderately. Historical: - Allergies: 23:07 Phenergan; ss - Home Meds: 23:07 Edarbi Oral [Active]; amlodipine 5 mg tab 1 tab once daily [Active]; atenolol 25 mg ss Oral tab 1 tab once daily [Active]; clonidine HCl 0.1 mg Oral tab 1 tab as needed [Active]; prednisone 20 mg Oral tab once daily [Active]; - PMHx: 23:07 GERD; Hypertension; Pre-Diabetes; Temporal Arteritis; ss - Immunization history:: Adult Immunizations up to date. - Social history:: Smoking status: Patient denies any tobacco usage or history of. ROS: 23:16 Constitutional: Negative for fever, chills, and weight loss, Eyes: Negative for injury, mh7 pain, redness, and discharge, ENT: Negative for injury, pain, and discharge, Neck: Negative for injury, pain, and swelling, Respiratory: Negative for shortness of breath, cough, wheezing, and pleuritic chest pain, Back: Negative for injury and pain, : Negative for injury, bleeding, discharge, and swelling, MS/Extremity: Negative for injury and deformity, Skin: Negative for injury, rash, and discoloration, Neuro: Negative for headache, weakness, numbness, tingling, and seizure, Psych: Negative for depression, anxiety, suicide ideation, homicidal ideation, and hallucinations, Allergy/Immunology: Negative for hives, rash, and allergies, Endocrine: Negative for neck swelling, polydipsia, polyuria, polyphagia, and marked weight changes, Hematologic/Lymphatic: Negative for swollen nodes, abnormal bleeding, and unusual bruising. Exam: 23:16 Constitutional: This is a well developed, well nourished patient who is awake, alert, mh7 and in no acute distress. Head/Face: Normocephalic, atraumatic. Eyes: Pupils equal round and reactive to light, extra-ocular motions intact. Lids and lashes normal. Conjunctiva and sclera are non-icteric and not injected. Cornea within normal limits. Periorbital areas with no swelling, redness, or edema. Neck: Trachea midline, no thyromegaly or masses palpated, and no cervical lymphadenopathy. Supple, full range of motion without nuchal rigidity, or vertebral point tenderness. No Meningismus. Chest/axilla: Normal chest wall appearance and motion. Nontender with no deformity. No lesions are appreciated. Cardiovascular: Regular rate and rhythm with a normal S1 and S2. No gallops, murmurs, or rubs. Normal PMI, no JVD. No pulse deficits. Respiratory: Lungs have equal breath sounds bilaterally, clear to auscultation and percussion. No rales, rhonchi or wheezes noted. No increased work of breathing, no retractions or nasal flaring. Abdomen/GI: Soft, non-tender, with normal bowel sounds. No distension or tympany. No guarding or rebound. No evidence of tenderness throughout. Back: No spinal tenderness. No costovertebral tenderness. Full range of motion. Skin: Warm, dry with normal turgor. Normal color with no rashes, no lesions, and no evidence of cellulitis. MS/ Extremity: Pulses equal, no cyanosis. Neurovascular intact. Full, normal range of motion. Neuro: Awake and alert, GCS 15, oriented to person, place, time, and situation. Cranial nerves II-XII grossly intact. Motor strength 5/5 in all extremities. Sensory grossly intact. Cerebellar exam normal. Normal gait. Psych: Awake, alert, with orientation to person, place and time. Behavior, mood, and affect are within normal limits. 23:16 ECG was reviewed by the Attending Physician. Vital Signs: 23:05 BP 181 / 79; Pulse 78; Resp 16; Temp 98.5(TE); Pulse Ox 99% on R/A; Weight 72.57 kg; ss Height 5 ft. 5 in. (165.10 cm); Pain 5/10; 01/26 00:30 BP 154 / 73; Pulse 77; Resp 16; Pulse Ox 97% on R/A; Pain 0/10; mt2 01:22 BP 167 / 79; Pulse 79; Resp 16; Pulse Ox 96% on R/A; Pain 5/10; mt2 02:00 BP 156 / 77; Pulse 73; Resp 16; Pulse Ox 97% on R/A; Pain 0/10; mt2 03:04 BP 178 / 78; Pulse 71; Resp 16; Pulse Ox 96% on R/A; Pain 0/10; mt2 01/25 23:05 Body Mass Index 26.63 (72.57 kg, 165.10 cm) ss MDM: 01/25 23:14 Patient medically screened. 7 01/26 02:02 Differential diagnosis: acute myocardial infarction, acute pericarditis, anxiety, [facility] coronary artery disease chest wall pain, congestive heart failure costochondritis, myocarditis, peptic ulcer disease, pericarditis, pleurisy, pneumonia, pneumothorax, pulmonary embolus. HEART Score: History: Moderately Suspicious (1), ECG: Normal (0), Age: > or = 65 years (2), Risk Factors: 1 or 2 risk factors (1), [Hypertension] [DM] Troponin: < or = 1 x Normal Limit (0), Total Score = 4. The patient was given aspirin in the Emergency Department. Data reviewed: vital signs, nurses notes, old medical records, lab test result(s), cardiac enzymes, CBC, electrolytes, urinalysis, EKG, radiologic studies, CT scan, plain films. Data interpreted: Pulse oximetry: on room air is 96 %. Interpretation: normal. Counseling: I had a detailed discussion with the patient and/or guardian regarding: the historical points, exam findings, and any diagnostic results supporting the discharge/admit diagnosis, the presence of at least one elevated blood pressure reading (>120/80) during this emergency department visit, lab results, radiology results, the need for further work-up and treatment in the hospital. 02:06 Response to treatment: the patient's symptoms have markedly improved after treatment. [facility] 01/25 23:12 Order name: Basic Metabolic Panel; Complete Time: 00:32 [facility] 01/25 23:12 Order name: CBC with Diff; Complete Time: 00:32 [facility] 01/25 23:12 Order name: LFT's; Complete Time: 00:32 [facility] 01/25 23:12 Order name: Magnesium; Complete Time: 00:32 [facility] 01/25 23:12 Order name: NT PRO-BNP; Complete Time: 00:32 [facility] 01/25 23:12 Order name: PT-INR; Complete Time: 00:32 [facility] 01/25 23:12 Order name: Troponin (emerg Dept Use Only); Complete Time: 00:32 [facility] 01/26 00:03 Order name: Urine Dipstick--Ancillary (enter results); Complete Time: 01:03 4 01/26 02:04 Order name: Blood Culture Adult (2) [facility] 01/26 02:14 Order name: Basic Metabolic Panel [facility] 01/26 02:14 Order name: Basic Metabolic Panel [facility] 01/26 02:14 Order name: CBC with Automated Diff [facility] 01/26 02:14 Order name: CBC with Automated Diff [facility] 01/26 02:14 Order name: Troponin I [facility] 01/25 23:12 Order name: XRAY Chest (1 view) [facility] 01/25 23:12 Order name: EKG; Complete Time: 23:12 [facility] 01/26 00:34 Order name: CT Chest For PE Angio [facility] 01/26 02:14 Order name: CONS Physician Consult [facility] 01/26 02:14 Order name: Consistent Carb (ADA) 1800 Tristen [facility] 01/26 02:14 Order name: Troponin I; Complete Time: 06:33 [facility] 01/26 02:14 Order name: Troponin I [facility] 01/26 03:08 Order name: COVID-19 [facility] 01/26 06:41 Order name: CORONAVIRUS [facility] 01/26 08:04 Order name: SARS-COV-2 RT PCR [facility] 01/25 23:12 Order name: Cardiac monitoring; Complete Time: 23:12 mt2 01/25 23:12 Order name: EKG - Nurse/Tech; Complete Time: 23:12 mt2 01/25 23:12 Order name: IV Saline Lock; Complete Time: 23:12 mt2 01/25 23:12 Order name: Labs collected and sent; Complete Time: 23:12 mt2 01/25 23:12 Order name: O2 Per Protocol; Complete Time: 23:12 mt2 01/25 23:12 Order name: O2 Sat Monitoring; Complete Time: 23:12 mt2 01/26 02:14 Order name: EKG Electrocardiogram EDMS 01/26 02:14 Order name: EKG Electrocardiogram EDMS 01/26 02:14 Order name: EKG Electrocardiogram; Complete Time: 03:45 ED[facility] 01/26 02:14 Order name: EKG Electrocardiogram EDMS EC/08 23:16 Rate is 77 beats/min. Rhythm is regular, Normal Sinus Rhythm. QRS Brilliant is Normal. DC mh7 interval is normal. QRS interval is normal. QT interval is normal. No Q waves. T waves are Normal. No ST changes noted. Clinical impression: Normal ECG. Administered Medications: 23:29 Drug: Aspirin Chewable Tablet 324 mg Route: PO; mt2 01/26 00:29 Follow up: Response: No adverse reaction; Pain is decreased mt2 01/25 23:29 Not Given (Patient Refused): morphine 2 mg IVP once; (PAIN>8) RASS on ADMN: Combtv4, mt2 Very Agttd3, Agttd2, Rstlss1, AlertClm0, Drwsy-1, LtSdtn-2, ModSdtn-3, DpSdtn-4, UnArsble-5 x2 23:29 Drug: Zofran (Ondansetron) 4 mg Route: IVP; Site: left antecubital; mt2 01/26 00:00 Follow up: Response: No adverse reaction; Nausea is decreased mt2 01:21 Drug: GI Cocktail without - (Maalox Suspension 30 ml, Lidocaine Liquid 2 % 15 mt2 ml) Route: PO; 02:10 Follow up: Response: No adverse reaction; Pain is decreased mt2 02:36 Drug: Rocephin - (cefTRIAXone) 1 grams Route: IVPB; Infused Over: 30 mins; Site: left mt2 antecubital; 02:36 Drug: AZITHromycin 500 mg Route: IVPB; Infused Over: 1 hrs; Site: left antecubital; mt2 Disposition: 06:37 Co-signature as Attending Physician, Wayne Cooper MD. [facility] Disposition: 01/27/20 02:07 Hospitalization ordered by Wayne Cooper for Observation. Preliminary diagnosis is Chest pain, unspecified. - Bed requested for Telemetry/MedSurg (observation). - Status is Observation. jr10 - Condition is Stable. - Problem is new. - Symptoms have improved. Signatures: Dispatcher [employer] EDMS Patricia Major Shelby, RN RN Alexandra Thomas RN RN Javi Pierce MD MD [facility] Elisa Pedroza RN RN mt2 Beryl Javier RN RN jr10 Corrections: (The following items were deleted from the chart) 02:17 02:07 Hospitalization Ordered by Wayne Cooper MD for Observation. Preliminary diagnosis cg is Chest pain, unspecified. Bed requested for Telemetry/MedSurg (observation). Status is Observation. Condition is Stable. Problem is new. Symptoms have improved. [facility] 09:46 02:17 01/27/2020 02:07 Hospitalization Ordered by Wayne Cooper MD for Observation. bd Preliminary diagnosis is Chest pain, unspecified. Bed requested for [facility] ER HOLD. Status is Observation. Condition is Stable. Problem is new. Symptoms have improved. cg 11:05 09:46 01/27/2020 02:07 Hospitalization Ordered by Wayne Cooper MD for Observation. jr10 Preliminary diagnosis is Chest pain, unspecified. Bed requested for Telemetry/MedSurg (observation). Status is Observation. Condition is Stable. Problem is new. Symptoms have improved. bd
[2020-01-27] MEDS ORDERED: ACETAMINOPHEN 500 MG TAB PO PRN (02:11)
[2020-01-27] MEDS ORDERED: ONDANSETRON 4 MG/2 ML VIAL IV PRN (02:11)
[2020-01-27] MEDS ORDERED: MORPHINE 4 MG/ML SYR IV PRN (02:11)
[2020-01-27] MEDS ORDERED: CEFTRIAXONE/SWI 1gm 1 GM/10 ML SYR ONE (02:41)
[2020-01-27] MEDS ORDERED: NA CHLORIDE 0.9% 250 ML ONE (02:41)
[2020-01-27] MEDS ORDERED: AZITHROMYCIN 500 MG INJ IVPB ONE (02:41)
[2020-01-27 04:05] VITALS: BMI 27.4
--- NOTE | 2020-01-27 07:32 | RAD REPORT ---
EXAM DESCRIPTION: Enzo Single View01/27/2020 12:30 am CLINICAL HISTORY: Chest pain COMPARISON: August 2023 FINDINGS: The lungs appear clear of acute infiltrate. The heart is mildly enlarged IMPRESSION: No acute abnormalities displayed
[2020-01-27] MEDS ORDERED: MAGNESIUM HYDROXIDE 8% 30 ML PO PRN (07:57)
[2020-01-27] MEDS ORDERED: ASPIRIN EC 81 MG TAB PO ONE (08:00)
[2020-01-27] MEDS ORDERED: MAGNESIUM HYDROXIDE 8% 30 ML ONE (08:52)
[2020-01-27] MEDS ORDERED: PANTOPRAZOLE 40MG TABLET PO ONE (08:59)
[2020-01-27] MEDS ORDERED: ASPIRIN EC 81 MG TAB PO SCH (09:00)
--- NOTE | 2020-01-27 10:57 | RAD REPORT ---
EXAM DESCRIPTION: CT - Chest For Pe Angio - 01/27/2020 6:24 am CLINICAL HISTORY: CHEST PAIN TECHNIQUE: Contiguous axial images obtained through the chest during angiographic phase following th e uneventful administration of IV contrast. Sagittal and coronal reformatted images were provided. VT P reformatted images were provided. This exam was performed according to our departmental dose-optimization program, which includes autom ated exposure control, adjustment of the mA and/or kV according to patient size and/or use of iterati ve reconstruction technique. COMPARISON: No prior exams provided for comparison. FINDINGS: Diagnostic quality: There is good opacification of the pulmonary arterial tree. Motion art ifact degrades image quality and limits evaluation of segmental and subsegmental vessels. Lungs: Scattered calcified granulomata bilaterally. Dependent dependent opacities bilaterally with a lower lobe predominance. Airways are patent. Pleura: No effusion. No pneumothorax. Heart and pericardium: The heart is moderately enlarged. Coronary artery calcification. No pericardia l effusion. Mediastinum and maria elena: Calcified mediastinal and bilateral hilar lymph nodes. No pathologically enlarg ed lymph nodes. Lower neck and chest wall: Unremarkable Vessels: No pulmonary arterial filling defects. Mild atherosclerotic disease. No thoracic aortic aneu rysm. Upper abdomen: Unremarkable Bones: Multilevel spondylosis. No acute fracture. IMPRESSION: 1. Motion artifact degrades image quality and limits evaluation of segmental and subse gmental vessels. No central pulmonary embolic disease. 2. Dependent opacities bilaterally with a lower lobe predominance suggestive of atelectasis. Superi mposed infiltrate cannot be entirely excluded. 3. Other findings as above. Electronically signed by: Evelyne Womack MD 01/27/2020 1:30 AM CDT Due to temporary technical issues with the PACS/Fluency reporting system, reports are being signed by the in house radiologist without review as a courtesy to ensure prompt reporting. The interpreting r adiologist is fully responsible for the content of the report.
[2020-01-27 11:35] VITALS: O2SAT 98
[2020-01-27] MEDS: PANTOPRAZOLE 40MG TABLET PO SCH ×2 (13:09→17:06)
[2020-01-27 16:08] VITALS: BP 159/69; TEMP 97.8
--- NOTE | 2020-01-27 16:59 | P.SSS ---
Patient History Date of Service: 01/27/20 Reason for admission: L side parasternal pain. Allergies promethazine HCl [From Phenergan] Allergy (Intermediate, Verified 07/10/18 08:29) Itching/Hives/Rash Home Medications: atenoloL [Tenormin*] 25 mg PO [id number] 06/30/14 cloNIDine HCL [Catapres*] 0.1 mg PO PRN PRN 06/30/14 Amlodipine Besylate 5 mg PO [id number] 07/10/18 Pantoprazole [Protonix Tab*] 40 mg PO BIDAC #0 tab 01/27/20 - Past Medical/Surgical History Has patient received pneumonia vaccine in the past: Yes Diabetic: No -: hypertension -: GERD -: partial hysterectomy - Family History Brother -: Heart disease Notes: MO - Social History Smoking Status: Never smoker Alcohol use: No CD- Drugs: No Caffeine use: No Place of Residence: Home Physical Examination - Vital Signs Temperature: 97.8 F Blood Pressure: 159/69 Pulse: 61 Respirations: 18 Pulse Ox (%): 99 - Physical Exam General: Oriented x3, Mild distress HEENT: Atraumatic, PERRLA, Mucous membr. moist/pink, EOMI, Sclerae nonicteric Neck: Supple, 2+ carotid pulse no bruit, No LAD, Without JVD or thyroid abnormality Respiratory: Clear to auscultation bilaterally, Normal air movement Cardiovascular: Regular rate/rhythm, Normal S1 S2 Gastrointestinal: Normal bowel sounds, No tenderness Musculoskeletal: No tenderness Integumentary: No rashes Neurological: Normal gait, Normal speech, Normal strength at 5/5 x4 extr, Normal tone, Normal affect Lymphatics: No axilla or inguinal lymphadenopathy - Studies Laboratory Data (last 24 hrs) 01/26/20 23:15: PT 12.1, INR 1.03 01/26/20 23:15: WBC 7.0, Hgb 10.9 L, Hct 32.1 L, Plt Count 145 L 01/26/20 23:15: Sodium 140, Potassium 3.5, BUN 15, Creatinine 0.95, Glucose 109 H, Magnesium 2.2 D, Total Bilirubin 0.3, AST 19, ALT 24, Alkaline Phosphatase 86 - Diagnosis (Problem(s)) (1) Anemia Current Visit: Yes Status: Chronic Plan: SHE WILL FU WITH DR. CAMPO. (2) GERD (gastroesophageal reflux disease) Current Visit: Yes Status: Chronic Plan: TAKE PANTOPRAZOLE DAILY. (3) HTN (hypertension) Current Visit: Yes Status: Chronic Plan: REFRACTORY ISSUE. IS STABLE FOR NOW. Qualifiers: Hypertension type: essential hypertension Qualified Code(s): I10 - Essential (primary) hypertension (4) Chest pain Onset Date: 06/30/14 Current Visit: No Status: Acute Plan: ATYPICAL NON CARDIAC CHARACTER. GERD RELATED. HAD NEG ST TEST 8 MONTHS AGO. HAD NEG CT ANGIO TODAY FOR DISSECTION. NO SYMPTOM OR SIGN OF PNEUMONIA. Qualifiers: Chest pain type: precordial pain Qualified Code(s): R07.2 - Precordial pain - Disposition Disposition: ROUTINE DISCHARGE Condition: FAIR Patient Discharge Instructions: Mulu,. You can go to Dr. Campo for GERD and mild anemia. He needs to work on diagnosis. Take Pantoprazole daily.
--- NOTE | 2020-01-28 05:57 | EKG ---
Test Date: 2020-01-27 Test Time: 07:14:10 Drafter Landscape: MAGAN MEASUREMENT RESULTS: Intervals: Rate: 65 UT: 200 QRSD: 74 QT: 398 QTc: 413 [place]: P: 18 UT: 200 QRS: -2 T: 36 INTERPRETIVE STATEMENTS: Normal sinus rhythm Minimal voltage criteria for LVH, may be normal variant Borderline ECG Compared to ECG 09/06/2019 11:35:18 Left ventricular hypertrophy now present Electronically Signed On 01-28-20 05:55:26 CDT by Yoan Perez
--- NOTE | 2020-01-28 05:58 | EKG ---
Test Date: 2020-01-26 Test Time: 23:03:25 Business Banker: NIRAJ MEASUREMENT RESULTS: Intervals: Rate: 77 [place]: 176 QRSD: 78 QT: 376 QTc: 425 [place]: P: 39 [place]: 176 QRS: 19 T: 49 INTERPRETIVE STATEMENTS: Normal sinus rhythm Normal ECG Compared to ECG 09/06/2019 11:35:18 No significant changes Electronically Signed On 01-28-20 05:55:30 CDT by Yoan Perez
--- NOTE | 2020-01-28 06:49 | CON ---
Date of Consultation: 01/27/2020 Reason For Consultation: Chest pain. History Of Present Illness: Ms. Izquierdo is an 84-year-old woman, who appears much younger than her st ated age. She has a history of hypertension. She came in with mid-epigastric chest pain that is wor se with food and laying down. Has had some nausea, but no diaphoresis. Denied any PND, orthopnea, p edal edema, palpitations, or syncope. She denied any fever or chills. Denies any diarrhea or vomiti ng. Workup so far has been negative including CPKs, MBs, troponin, chest x-ray, and EKG. Allergies: SHE IS ALLERGIC TO PROMETHAZINE. Past Medical History: Positive for hypertension. Review of Systems: Negative. Social History: Negative. Medications: At home include Norvasc, losartan, atenolol, clonidine, and prednisone. Physical Examination: General: She is very pleasant. Vital Signs: Stable. Afebrile. HEENT: Negative. Neck: Supple with no bruit. Chest: Clear to auscultation and percussion. Cardiac: Revealed regular rhythm and rate. No murmurs, gallops, or rubs. Abdomen: Benign. Extremities: Revealed no clubbing, cyanosis, or edema. Diagnostic Data: All within normal limit. Impression And Plan: Chest pain, most likely gastroesophageal reflux disease. 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 She is feeling better on proton pum p inhibitors. Echocardiogram is pending. CT angiogram of the chest is pending. Her blood pressure is well controlled. We will see what her workup shows, but I am comfortable with her going home when ever it is okay with Dr. Cooper. JEANA/PHILLIP Voice ID: [id number] Report ID: [id number]
--- NOTE | 2020-01-28 09:11 | ECHO ---
HEIGHT: 5 ft 4 in WEIGHT: 159 lb 15.831 oz DATE OF STUDY: 01/27/[address]: Yoan Perez MD 2-DIMENSIONAL: YES M.MODE: YES DOPPLER: YES COLOR FLOW: YES TDS: NO PORTABLE: NO DEFINITY: NO BUBBLE STUDY: NO DIAGNOSIS: CHEST PAIN CARDIAC HISTORY: CATHERIZATION: SURGERY: PROSTHETIC VALVE: PACEMAKER: MEASUREMENTS (cm) DIASTOLIC (NORMALS) SYSTOLIC (NORMALS) IVSd 1.6 (0.6-1.2) LA Diam 3.1 (1.9-4.0) LVEF 86% LVIDd 3.6 (3.5-5.7) LVIDs 1.6 (2.0-3.5) %FS 55% LVPWd 1.1 (0.6-1.2) Ao Diam 2.9 (2.0-3.7) 2 DIMENSIONAL ASSESSMENT: RIGHT ATRIUM: NORMALL LEFT ATRIUM: NORMAL RIGHT VENTRICLE: NORMAL LEFT VENTRICLE: LEFT VENTRICULAR HYPERTROPHY TRICUSPID VALVE: NORMAL MITRAL VALVE: NORMAL PULMONIC VALVE: NORMAL AORTIC VALVE: NORMAL PERICARDIAL EFFUSION: NONE AORTIC ROOT: NORMAL LEFT VENTRICULAR WALL MOTION: NORMAL DOPPLER/COLOR FLOW: MILD TRICUSPID REGURGITATION. COMMENTS: LEFT VENTRICULAR HYPERTROPHY. MILD TRICUSPID REGURGITATION. NORMAL RIGHT VENTRICULAR SYSTOLIC PRESSURE. NORMAL LEFT VENTRICULAR FUNCTION, EJECTION FRACTION 86%. NO EFFUSION. TECHNOLOGIST: Lopez CASTILLO
== END 2020-01-27 18:15 | disposition home or self-care (01) ==
LOC: ER 22:52 → ERHOLD 01-27 02:14 → 4TH 01-27 10:48
PROVIDERS: ADMIT Internal Medicine; ATTEND Internal Medicine
DX: R07.9 Chest pain, unspecified (principal); K21.9 Gastro-esophageal reflux disease without esophagitis; I11.9 Hypertensive heart disease without heart failure; I07.1 Rheumatic tricuspid insufficiency; D64.9 Anemia, unspecified; Z20.828 Contact with and (suspected) exposure to other viral communicable diseases; Z79.52 Long term (current) use of systemic steroids; Z79.899 Other long term (current) drug therapy; Z82.49 Family history of ischemic heart disease and other diseases of the circulatory system
CPT/HCPCS: 93005 ×3; 93306; 87040 ×2; 85025; 80048; 36415; 83735; 87205; 85610; 80076; 81003; 84484 ×3; 83880; 71275; 71045; 96375; 96374; 99285; U0003; Q9967; J0456; J0696; J7050; J2405; G0378 ×2

== ENCOUNTER 2020-02-07 22:42 | Observation (INO) | payer OTHER, MEDICARE ==
--- OUTSIDE RECORDS SUMMARY | 2020-02-07 22:44 | XMS REPORT | Clinical Summary ---
:1935 Author Organization [facility] Address [address] [place] [address] Care Team Providers Name Role Phone Asked, No Pcp Primary Care Provider Unavailable Allergies Not on File Medications No known medications Active Problems No known active problems Social History Tobacco Use Types Packs/Day Years Used Date Never Smoker Alcohol Use Drinks/Week oz/Week Comments Yes 1 Glasses of wine Sex Assigned at Date Recorded Not on file Last Filed Vital Signs Not on file Plan of Treatment Health Maintenance Due Date Last Done Comments SHINGLES VACCINES (#1) 1984 65+ PNEUMOCOCCAL VACCINE (1 of 2 - PCV13) 1999 INFLUENZA VACCINE 01/19/2020 Results Not on fileafter 02/06/2019 Insurance Payer Benefit Plan / Subscriber ID Effective Dates Phone Addre ss Type Group MEDICARE MEDICARE PART A [id number] 1999-Present [place], [place] Medicare AND B AARP AARP SUPPLEMENT [id number] 2018-Present Commercial Advance Directives For more information, please contact: [phone] Type Date Recorded 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
[2020-02-07] MEDS ORDERED: NITROGLYCERIN 0.4 MG/TAB SL ONE (23:26)
[2020-02-07] MEDS ORDERED: NA CHLORIDE 0.9% 500 ML ONE (23:26)
[2020-02-07 23:37] LABS: Absolute Lymphocytes (CBC) 1.5 K/uL (0.7-4.9); Basophils % 1.2 % (0-1.3); Hematocrit 33.8 % (36.0-45.0); Lymphocytes % 20.4 % (15.3-44.8); MPV 10.4 fL (7.6-11.3); Protime INR 1.1; RBC Red Blood Cell Count 3.21 M/uL (3.86-4.86)
[2020-02-07 23:50] LABS: ALT/SGPT 29 U/L (12-78); AST/SGOT 22 U/L (15-37); Albumin 3.8 g/dL (3.4-5.0); Alkaline Phosphatase 89 U/L (45-117); BUN Blood Urea Nitrogen 17 mg/dL (7-18); Bicarbonate 27 mmol/L (21-32); Bilirubin Direct 0.1 mg/dL (0-0.2); Bilirubin Total 0.4 mg/dL (0.2-1.0); Glucose Level 109 mg/dL (74-106); Magnesium 2.2 mg/dL (1.8-2.4); NT PRO-BNP 182 pg/mL (<450); Potassium 3.7 mmol/L (3.5-5.1); Protein, Total 7.8 g/dL (6.4-8.2); Sodium Level 139 mmol/L (136-145); Troponin (Emerg Dept Use Only) < 0.02 ng/mL (0.0-0.045)
[2020-02-08] MEDS ORDERED: MAGNE/ALUM HYDROXD 30 ML UCUP ONE (00:13)
[2020-02-08] MEDS ORDERED: LIDOCAINE VISCOUS 2% SOLN 15 ML UDC ONE (00:13)
[2020-02-08 01:06] LABS: Blood Morphology Comment NOTED (NOT SEEN); Macrocytosis 1+; Platelet Estimate ADEQ; Polychromasia 1+; White Blood Cell Scan OK (OK)
[2020-02-08 01:07] LABS: Urine Blood TRACE (NEG); Urine Glucose NEGATIVE (NEG); Urine Protein NEGATIVE (NEG); Urine Specific Gravity 1.015 (1.005-1.030)
--- NOTE | 2020-02-08 01:24 | ER ---
[facility] Name: Mulu Jimenez Age: 84 yrs Sex: Female : 1935 Arrival Date: 02/07/2020 Time: 22:45 Bed 5 Private MD: Wayne Cooper V Diagnosis: Hypertensive heart disease;Chest pain, unspecified Presentation: 02/06 22:53 Chief complaint: Patient states: her blood pressure shot up tonight it was around bb 198/108 at approx 2200 she took her clonidine and aspirin but it is still high and she has a headache. Coronavirus screen: At this time, the client does not indicate any symptoms associated with coronavirus-19. Ebola Screen: No symptoms or risks identified at this time. Initial Sepsis Screen: Does the patient meet any 2 criteria? No. Patient's initial sepsis screen is negative. Does the patient have a suspected source of infection? No. Patient's initial sepsis screen is negative. Risk Assessment: Do you want to hurt yourself or someone else? Patient reports no desire to harm self or others. Onset of symptoms was February 07, 2020. 22:53 Method Of Arrival: Ambulatory bb 22:53 Acuity: ROMINA 2 bb Historical: - Allergies: 22:56 Phenergan; bb - Home Meds: 22:56 Edarbi Oral [Active]; atenolol 25 mg Oral tab 1 tab once daily [Active]; clonidine HCl bb 0.1 mg Oral tab 1 tab as needed [Active]; - PMHx: 22:56 GERD; Hypertension; Pre-Diabetes; Temporal Arteritis; bb - PSHx: 22:56 Hysterectomy; bb - Immunization history:: Adult Immunizations up to date. - Social history:: Smoking status: unknown. Screenin:57 Abuse screen: Denies threats or abuse. Denies injuries from another. Nutritional mg2 screening: No deficits noted. Tuberculosis screening: No symptoms or risk factors identified. Fall Risk No IV (0 pts). Assessment: 22:57 General: Appears in no apparent distress. comfortable, Behavior is calm, cooperative. mg2 Pain: Complains of pain in head. Neuro: Level of Consciousness is awake, alert, obeys commands, Oriented to person, place, time, situation. Neuro: Reports headache. Cardiovascular: Capillary refill < 3 seconds Patient's skin is warm and dry. Respiratory: Airway is patent Respiratory effort is even, unlabored, Respiratory pattern is regular, symmetrical. GI: No signs and/or symptoms were reported involving the gastrointestinal system. : No signs and/or symptoms were reported regarding the genitourinary system. EENT: No signs and/or symptoms were reported regarding the EENT system. Derm: Skin is intact, is healthy with good turgor, Skin is pink, warm \\T\\ dry. normal. Musculoskeletal: Circulation, motion, and sensation intact. Capillary refill < 3 seconds. 23:25 Reassessment: patient denies chest pain now. provider informed. mg2 02/07 00:00 Reassessment: Patient and/or family updated on plan of care and expected duration. Pain sg level reassessed. requesting saltine crackers after GI Cocktail, reports no food since 1400 yesterday. will check with provider after GI Cocktail for PO order, pt stated understanding. pt reports " Id like to take a nap while we wait for the cocktail to take effect." lights dimmed, door closed, srx2, bed in low and locked position, call light and personal belongings within reach. 00:40 Reassessment: Patient and/or family updated on plan of care and expected duration. Pain sg level reassessed. Belle KNAPP at bedside discussing dispo at this time, pt stated understanding, awaiting new orders at this time. 02:01 Reassessment: Patient and/or family updated on plan of care and expected duration. Pain mg2 level reassessed. Patient is alert, oriented x 3, equal unlabored respirations, skin warm/dry/pink. pt c/o chest pressure at this time, beginning on the left and radiating to the right side of the chest at this time, Belle KNAPP notified and new orders received at this time, pt updated and stated understanding. Vital Signs: 02/06 22:53 BP 201 / 85; Pulse 84; Resp 16 S; Temp 98.1(O); Pulse Ox 96% on R/A; Weight 72.12 kg bb (R); Height 5 ft. 5 in. (165.10 cm) (R); Pain 6/10; 23:00 BP 197 / 83; Pulse 66; Resp 16; Pulse Ox 100% on R/A; sg 23:15 BP 156 / 64; Pulse 62; Resp 16; Pulse Ox 100% on R/A; sg 02/07 00:11 BP 157 / 77; Pulse 66; Resp 16; Pulse Ox 100% on R/A; sg 01:00 BP 163 / 72; Pulse 66; Resp 16; Pulse Ox 100% on R/A; jb4 01:34 BP 171 / 75; Pulse 60; Resp 18; Pulse Ox 100% on R/A; mg2 02:02 BP 169 / 71; Pulse 65; Resp 16; Pulse Ox 100% on R/A; mg2 02:33 BP 172 / 65; Pulse 66; Resp 16; Temp 98.1; Pulse Ox 100% on R/A; Pain /10; sg 02:55 BP 168 / 62 RA (man/reg); Pulse 66; Resp 17 S; Temp 98.7; Pulse Ox 100% on R/A; Pain sg 06/29; 02/06 22:53 Body Mass Index 26.46 (72.12 kg, 165.10 cm) bb ED Course: 02/06 22:45 Patient arrived in ED. am2 22:45 Wayne Cooper MD is Private Physician. am2 22:52 Travis Castro, RN is Primary Nurse. sg 22:53 Geraldo Mcgarry PA is PHCP. cp 22:53 Javi Pierce MD is Attending Physician. cp 22:55 Triage completed. bb 22:56 Arm band placed on Patient placed in an exam room, on a stretcher, on pulse oximetry. bb 22:58 Patient has correct armband on for positive identification. mg2 22:58 No provider procedures requiring assistance completed. mg2 23:05 EKG done, by ED staff, reviewed by Geraldo KNAPP. sg 23:15 Inserted saline lock: 22 gauge in left antecubital area, using aseptic technique. Blood mg2 collected. 23:15 Initial lab(s) drawn, by ED staff, sent to lab. sg 23:52 CT Head Brain wo Cont In Process Unspecified. EDMS 23:59 XRAY Chest (1 view) In Process Unspecified. EDMS 02/07 01:22 Wayne Cooper MD is Referral Physician. cp 02:07 Wayne Cooper MD is Hospitalizing Provider. cp 02:20 Repeat lab(s) drawn. by ms, sent to lab. sg 03:00 Patient admitted, IV remains in place. intact, No redness/swelling at site. sg Administered Medications: 02/06 23:21 Drug: NS 0.9% 250 ml Route: IV; Rate: bolus; Site: left antecubital; mg2 02/07 00:00 Follow up: Response: No adverse reaction; IV Status: Completed infusion sg 00:00 Drug: GI Cocktail without - (Maalox Suspension 30 ml, Lidocaine Liquid 2 % 15 sg ml) Route: PO; 00:33 Follow up: Response: No adverse reaction; Marked relief of symptoms sg 01:40 Drug: hydrALAZINE 5 mg Route: IV; Rate: calculated rate; Site: left antecubital; sg 01:50 Follow up: Response: No adverse reaction; No change in condition; IV Status: Completed mg2 infusion 01:50 Drug: Pepcid 20 mg Route: IVP; Site: left antecubital; mg2 02:39 Follow up: Response: No adverse reaction mg2 02:42 Drug: Aspirin Chewable Tablet 162 mg Route: PO; sg 02:49 Not Given (pt requesting to wait for the IV hydralazine reaction): Nitroglycerin 0.4 mg sg Sublingual once Outcome: 01:23 Discharge ordered by MD. cp 02:10 Decision to Hospitalize by Provider. cp 03:00 Admitted to Tele accompanied by [facility], via wheelchair, room 220, with chart, Report sg called to Celena ARTEAGA 03:00 Condition: good 03:00 Discharge instructions given to patient, Instructed on the need for admit, safety practices, Demonstrated understanding of instructions. 03:04 Patient left the ED. sg Signatures: Dispatcher [employer] EDMS Travis Castro RN RN sg Mita Carrizales RN RN bb Geraldo Mcgarry PA PA cp Bryson, James RN RN [id number] Mary Pedersen amSebastien Pope RN RN mg2 Corrections: (The following items were deleted from the chart) 02/06 23:21 23:13 BP 197 / 83; Pulse 66bpm; Resp 16bpm; Pulse Ox 100% RA; sg sg 02/07 00:12 00:11 BP 157 / 77; Pulse 66bpm; Resp 60bpm; Pulse Ox 100% RA; sg sg 02:00 01:59 Nitroglycerin 0.4 mg Sublingual mg2 mg2 03:05 02:55 BP 168 / 62; Pulse 66bpm; Resp 17bpm; Spontaneous; Pulse Ox 100% RA; Temp 98.7F; sg Pain 2/10; sg
--- NOTE | 2020-02-08 01:24 | EDPHYS ---
Physician Documentation [facility] Name: Mulu Jimenez Age: 84 yrs Sex: Female : 1935 Arrival Date: 02/07/2020 Time: 22:45 Bed 5 Private MD: Wayne Cooper V ED Physician Javi Pierce HPI: 02/06 23:10 This 84 yrs old Black Female presents to ER via Ambulatory with complaints of High cp Blood Pressure. 23:10 The patient has elevated blood pressure and discovered this at home, with a home cp device. Onset: The symptoms/episode began/occurred today. 23:10 Associated signs and symptoms: Pertinent positives: headache, chest pressure, Pertinent cp negatives: lightheadedness, visual changes, vomiting. Severity of symptoms: At its worst the blood pressure was 201 mm Hg. 23:10 The patient has experienced similar episodes in the past, a few times. cp Historical: - Allergies: 22:56 Phenergan; bb - Home Meds: 22:56 Edarbi Oral [Active]; atenolol 25 mg Oral tab 1 tab once daily [Active]; clonidine HCl bb 0.1 mg Oral tab 1 tab as needed [Active]; - PMHx: 22:56 GERD; Hypertension; Pre-Diabetes; Temporal Arteritis; bb - PSHx: 22:56 Hysterectomy; bb - Immunization history:: Adult Immunizations up to date. - Social history:: Smoking status: unknown. ROS: 23:12 Constitutional: Negative for body aches, chills, fever, poor PO intake. cp 23:12 Eyes: Negative for injury, pain, redness, and discharge. cp 23:12 Respiratory: Negative for cough, shortness of breath, wheezing. Exam: 23:12 ECG was reviewed by the Attending Physician. cp 23:15 Constitutional: The patient appears in no acute distress, alert, awake, comfortable, cp non-diaphoretic, non-toxic, well developed, well nourished. 23:15 Head/Face: Normocephalic, atraumatic. cp 23:15 Eyes: Periorbital structures: appear normal, Conjunctiva: normal, no exudate, no injection, Lids and lashes: appear normal, bilaterally. 23:15 ENT: External ear(s): are unremarkable, Nose: is normal, Posterior pharynx: Airway: no evidence of obstruction, patent. 23:15 Neck: ROM/movement: is normal, is supple, without pain, no range of motions limitations. 23:15 Chest/axilla: Inspection: normal, Palpation: is normal, no crepitus, no tenderness. 23:15 Cardiovascular: Rate: normal, Rhythm: regular, Edema: is not appreciated, JVD: is not appreciated. 23:15 Respiratory: the patient does not display signs of respiratory distress, Respirations: normal, no use of accessory muscles, labored breathing, is not present, Breath sounds: are clear throughout, no decreased breath sounds. 23:15 Abdomen/GI: Inspection: abdomen appears normal, Palpation: abdomen is soft and non-tender, in all quadrants. 23:15 Back: pain, is absent, ROM is normal. 23:15 Neuro: Orientation: to person, place \T\ time. Mentation: is normal, Cerebellar function: is grossly normal, Motor: moves all fours, strength is normal, Gait: is steady, at a normal pace. Vital Signs: 22:53 BP 201 / 85; Pulse 84; Resp 16 S; Temp 98.1(O); Pulse Ox 96% on R/A; Weight 72.12 kg bb (R); Height 5 ft. 5 in. (165.10 cm) (R); Pain 6/10; 23:00 BP 197 / 83; Pulse 66; Resp 16; Pulse Ox 100% on R/A; sg 23:15 BP 156 / 64; Pulse 62; Resp 16; Pulse Ox 100% on R/A; sg 02/07 00:11 BP 157 / 77; Pulse 66; Resp 16; Pulse Ox 100% on R/A; sg 01:00 BP 163 / 72; Pulse 66; Resp 16; Pulse Ox 100% on R/A; jb4 01:34 BP 171 / 75; Pulse 60; Resp 18; Pulse Ox 100% on R/A; mg2 02:02 BP 169 / 71; Pulse 65; Resp 16; Pulse Ox 100% on R/A; mg2 02:33 BP 172 / 65; Pulse 66; Resp 16; Temp 98.1; Pulse Ox 100% on R/A; Pain 2/10; sg 02:55 BP 168 / 62 RA (man/reg); Pulse 66; Resp 17 S; Temp 98.7; Pulse Ox 100% on R/A; Pain sg 2/10; 02/06 22:53 Body Mass Index 26.46 (72.12 kg, 165.10 cm) bb MDM: 02/06 23:01 Patient medically screened. cp 23:40 Differential diagnosis: hypertensive crisis, Malignant HTN, CVA, intracerebral cp hemorrhage. 02/07 01:20 Data reviewed: vital signs, nurses notes, lab test result(s), EKG, radiologic studies, cp CT scan, plain films. Test interpretation: by ED physician or midlevel provider: ECG, chest xray negative for infiltrates. Response to treatment: the patient's symptoms have markedly improved after treatment. ED course: VSS. Patient reports headache and indigestion improved with meds. Patient reports having appt with DR Cooper later today. Will discharge to home for continued monitoring. 02:00 ED course: VSS. Patient c/o chest pressure. Blood pressure remains elevated, will admit.cp 02:04 Physician consultation: Pawan Davison MD was called at 02:05, was contacted at 02:05, regarding consult, patient's condition, and will see patient in inpatient room, later today, would like admission per Dr. Wayne Cooper MD. 02/06 23:03 Order name: Basic Metabolic Panel; Complete Time: 00:23 cp 02/07 00:23 Interpretation: Normal except: GLUC 109; GFR 62. cp 02/06 23:03 Order name: CBC with Diff; Complete Time: 01: 02/06 23:44 Interpretation: Normal except: RBC 3.21; HGB 11.4; HCT 33.8; MCV 105.4; MCH 35.4. cp 02/06 23:03 Order name: LFT's; Complete Time: 00:23 cp 02/07 00:23 Interpretation: Normal except: GLOB 4.0; A/G 1.0. cp 02/06 23:03 Order name: Magnesium; Complete Time: 00:23 cp 02/06 23:03 Order name: NT PRO-BNP; Complete Time: 00:23 cp 02/06 23:03 Order name: PT-INR; Complete Time: 23:44 cp 02/06 23:03 Order name: Troponin (emerg Dept Use Only); Complete Time: 00: cp 02/07 00:24 Interpretation: Within normal limits: TROPED < 0.02. cp 02/06 23:31 Order name: Urine Dipstick--Ancillary (enter results); Complete Time: 01:09 ar5 02/07 01:09 Interpretation: Normal except: UBLD TRACE. cp 02/06 23:43 Order name: CBC Smear Scan; Complete Time: 01:09 EDTX 02/07 01:58 Order name: Troponin (emerg Dept Use Only) mg2 02/07 02:18 Order name: Basic Metabolic Panel EDTX 02/07 02:18 Order name: Basic Metabolic Panel EDTX 02/07 02:18 Order name: CBC with Automated Diff EDTX 02/07 02:18 Order name: CBC with Automated Diff EDTX 02/06 23:03 Order name: XRAY Chest (1 view) 02/06 23:03 Order name: EKG; Complete Time: 23:04 02/06 23:03 Order name: CT Head Brain wo Cont 02/07 02:18 Order name: CONS Physician Consult EDTX 02/07 02:18 Order name: Regular EDTX 02/07 02:18 Order name: EKG Electrocardiogram EDTX 02/07 02:18 Order name: EKG Electrocardiogram EDTX 02/07 02:18 Order name: EKG Electrocardiogram EDTX 02/07 02:18 Order name: Troponin I EDTX 02/07 02:18 Order name: Troponin I EDTX 02/06 23:03 Order name: Cardiac monitoring; Complete Time: 23:13 02/06 23:03 Order name: EKG - Nurse/Tech; Complete Time: 23:13 02/06 23:03 Order name: IV Saline Lock; Complete Time: 23:13 02/06 23:03 Order name: Labs collected and sent; Complete Time: 23:13 02/06 23:03 Order name: O2 Per Protocol; Complete Time: 23:13 02/06 23:03 Order name: O2 Sat Monitoring; Complete Time: 23:04 02/07 02:18 Order name: EKG Electrocardiogram EDTX EC/20 23:12 Rate is 68 beats/min. Rhythm is regular. [place] interval is prolonged at 202 msec. QT cp interval is normal. T waves are Inverted in lead V2. Interpreted by me. Reviewed by me. Administered Medications: 23:21 Drug: NS 0.9% 250 ml Route: IV; Rate: bolus; Site: left antecubital; mg2 02/07 00:00 Follow up: Response: No adverse reaction; IV Status: Completed infusion sg 00:00 Drug: GI Cocktail without - (Maalox Suspension 30 ml, Lidocaine Liquid 2 % 15 sg ml) Route: PO; 00:33 Follow up: Response: No adverse reaction; Marked relief of symptoms sg 01:40 Drug: hydrALAZINE 5 mg Route: IV; Rate: calculated rate; Site: left antecubital; sg 01:50 Follow up: Response: No adverse reaction; No change in condition; IV Status: Completed mg2 infusion 01:50 Drug: Pepcid 20 mg Route: IVP; Site: left antecubital; mg2 02:39 Follow up: Response: No adverse reaction mg2 02:42 Drug: Aspirin Chewable Tablet 162 mg Route: PO; sg 02:49 Not Given (pt requesting to wait for the IV hydralazine reaction): Nitroglycerin 0.4 mg sg Sublingual once Disposition: 06:59 Co-signature as Attending Physician, Javi Pierce MD. [email or web address] Disposition: 02/08/20 02:10 Hospitalization ordered by Wayne Cooper for Observation. Preliminary diagnosis are Hypertensive heart disease, Chest pain, unspecified. - Bed requested for Telemetry/MedSurg (observation). - Status is Observation. sg - Condition is Stable. - Problem is new. - Symptoms have improved. Signatures: Dispatcher [employer] Travis Corona RN RN sg Mita Carrizales RN RN bb Page, Corey, PA PA cp Garcia, Cindy, RN RN Sebastien Campbell RN RN mg2 Javi Pierce MD MD [email or web address] Corrections: (The following items were deleted from the chart) 02:00 01:23 02/08/2020 01:23 Discharged to Home. Impression: Hypertensive heart disease. mg2 Condition is Stable. Forms are Medication Reconciliation Form, Thank You Letter, Antibiotic Education, Prescription Opioid Use. Follow up: Wayne Cooper; When: Today; Reason: Recheck today's complaints. Problem is an acute exacerbation. Symptoms have improved. cp 02:38 02:10 Hospitalization Ordered by Wayne Cooper MD for Observation. Preliminary diagnosis cg is Hypertensive heart disease; Chest pain, unspecified. Bed requested for Telemetry/MedSurg (observation). Status is Observation. Condition is Stable. Problem is new. Symptoms have improved. cp 02:52 02:38 02/08/2020 02:10 Hospitalization Ordered by Wayne Cooper MD for Observation. sg Preliminary diagnosis is Hypertensive heart disease; Chest pain, unspecified. Bed requested for Telemetry/MedSurg (observation). Status is Observation. Condition is Stable. Problem is new. Symptoms have improved. cg 02:52 02:52 02/08/2020 02:10 Hospitalization Ordered by Wayne Cooper MD for Observation. mg2 Preliminary diagnosis is Hypertensive heart disease; Chest pain, unspecified. Bed requested for Telemetry/MedSurg (observation). Status is Observation. Condition is Stable. Problem is new. Symptoms have improved. sg 03:04 02:52 02/08/2020 02:10 Hospitalization Ordered by Wayne Cooper MD for Observation. sg Preliminary diagnosis is Hypertensive heart disease; Chest pain, unspecified. Bed requested for Telemetry/MedSurg (observation). Status is Observation. Condition is Stable. Problem is new. Symptoms have improved. mg2 22:02 02:00 ED course: VSS. Patient c/o chest pressure. cp cp
[2020-02-08] MEDS ORDERED: HYDRALAZINE HCL 10 MG TABLET ONE (01:47)
[2020-02-08] MEDS ORDERED: HYDRALAZINE HCL 20 MG/ML VIAL ONE ×2 (01:47→13:58)
[2020-02-08] MEDS ORDERED: FAMOTIDINE 20 MG/2 ML VIAL IV ONE (01:55)
[2020-02-08] MEDS ORDERED: ONDANSETRON 4 MG/2 ML VIAL IV PRN (02:13)
[2020-02-08] MEDS ORDERED: MORPHINE 2 MG/ML SYR IV PRN (02:13)
[2020-02-08] MEDS ORDERED: ACETAMINOPHEN 500 MG TAB PO PRN (02:13)
[2020-02-08] MEDS ORDERED: HYDRALAZINE HCL 20 MG/ML VIAL IV PRN (02:20)
[2020-02-08] MEDS ORDERED: ASPIRIN 81 MG CHEWABLE TABLET ONE (02:54)
[2020-02-08 03:27] VITALS: BMI 27.0
[2020-02-08] MEDS: ASPIRIN EC 81 MG TAB PO SCH (07:59)
--- NOTE | 2020-02-08 08:30 | RAD REPORT ---
EXAM DESCRIPTION: RAD - Chest Single View - 02/08/2020 12:00 am CLINICAL HISTORY: CHEST PAIN Chest pain. COMPARISON: Chest Single View dated 01/27/2020; Chest Single View dated 09/06/2019; Chest Single View d ated 08/09/2018; Chest Pa And Lat (2 Views) dated 07/10/2018 FINDINGS: Portable technique limits examination quality. The lungs are grossly clear. The heart is normal in size. No displaced fractures. IMPRESSION: No acute intrathoracic process suspected.
[2020-02-08] MEDS: ENOXAPARIN 40 MG/0.4 ML SQ SCH ×2 (09:00→09:16)
[2020-02-08 09:25] LABS: MPV 10.3 fL (7.6-11.3)
[2020-02-08 10:13] LABS: Platelet Estimate ADEQ
[2020-02-08] MEDS ORDERED: cloNIDine HCL 0.1 MG TAB PO PRN (12:50)
--- NOTE | 2020-02-08 13:10 | P.HP ---
Certification for Inpatient Patient admitted to: Observation With expected LOS: <2 Midnights Practitioner: I am a practitioner with admitting privileges, knowledge of patient current condition, hospital course, and medical plan of care. Services: Services provided to patient in accordance with Admission requirements found in Title 42 Section 412.3 of the Code of Federal Regulations Patient History Date of Service: 02/08/20 Reason for admission: BP WENT HIGH History of Present Illness: MS. LEMOS HAS BEEN TRIED ON MANY BP PILLS WITH POOR CONTROL. I HAD HER 24 HOUR URINE TEST DONE FOR CATECHOLAMINES THAT WAS NEGATIVE A FEW YEARS AGO. SHE HAS R SIDE CHEST PAIN WITH IT BUT NOT NOW. SHE RELATES HER BP RISE TO GERD SS ALSO. SHE HAS BEEN TO CARDILOGIST WITH NEG STRESS TEST ABOUT 6 MONTHS AGO. Allergies promethazine HCl [From Phenergan] Allergy (Intermediate, Verified 02/08/20 03:20) Itching/Hives/Rash Home Medications: atenoloL [Tenormin*] 25 mg PO [id number] 06/30/14 cloNIDine HCL [Catapres*] 0.1 mg PO PRN PRN 06/30/14 Amlodipine Besylate 5 mg PO [id number] 07/10/18 Pantoprazole Sodium [Protonix] 40 mg PO DAILY 02/08/20 Thyroid,Pork [Day Spa Manager Thyroid] 15 mg PO DAILY 02/08/20 - Past Medical/Surgical History Has patient received pneumonia vaccine in the past: Yes Diabetic: No -: hypertension -: GERD -: partial hysterectomy - Family History Brother -: Heart disease Notes: [place] - Social History Smoking Status: Never smoker Alcohol use: No CD- Drugs: No Caffeine use: No Place of Residence: Home Review of Systems 10-point ROS is otherwise unremarkable Physical Examination - Vital Signs Temperature: 98.0 F Blood Pressure: 170/75 Pulse: 71 Respirations: 18 Pulse Ox (%): 99 - Physical Exam General: Alert, In no apparent distress HEENT: Atraumatic, PERRLA, Mucous membr. moist/pink, EOMI, Sclerae nonicteric Neck: Supple, 2+ carotid pulse no bruit, No LAD, Without JVD or thyroid abnormality Respiratory: Clear to auscultation bilaterally, Normal air movement Cardiovascular: Regular rate/rhythm, Normal S1 S2 Gastrointestinal: Normal bowel sounds, No tenderness Musculoskeletal: No tenderness Integumentary: No rashes Neurological: Normal gait, Normal speech, Normal strength at 5/5 x4 extr, Normal tone, Normal affect Lymphatics: No axilla or inguinal lymphadenopathy - Studies Laboratory Data (last 24 hrs) 02/07/20 23:15: PT 12.9 H, INR 1.10 02/07/20 23:15: WBC 7.5, Hgb 11.4 L, Hct 33.8 L, Plt Count 155 02/07/20 23:15: Sodium 139, Potassium 3.7, BUN 17, Creatinine 1.03, Glucose 109 H, Magnesium 2.2, Total Bilirubin 0.4, AST 22, ALT 29, Alkaline Phosphatase 89 Assessment and Plan - Problems (Diagnosis) (1) Uncontrolled hypertension Current Visit: Yes Status: Chronic Plan: START SPIRONOLACTONE 50 MG DAILY. RESUME OTHER MEDS. STOP EDARBI- IT DID NOT WORK. SHE MAY HAVE ALDOSTERONISM RAISING HER BP. CONSULT DR. KEZIA DOHERTY. PHEOCHORMOCYTOMA HAS BEEN RULED OUT. - Advance Directives Does patient have a Living Will: Yes Does patient have a Durable POA for Healthcare: Yes
--- NOTE | 2020-02-08 15:21 | RAD REPORT ---
EXAM DESCRIPTION: CT of the head without contrast CLINICAL HISTORY: HEADACHE COMPARISON: None available TECHNIQUE: Axial CT of the head obtained from the skull apex to the skull base without contrast. FINDINGS: No acute intracranial hemorrhage identified. No mass, mass effect, shift of the midline, a bnormal extra-axial fluid collection or CT evidence of acute ischemic change identified. The ventricu lar system and sulcal spaces are mildly enlarged compatible with mild cerebral atrophy. Scattered a reas of hypodensity throughout the supratentorial white matter are nonspecific and may be related to chronic small vessel ischemic change. The visualized paranasal sinuses and the mastoids are clear. No skull fracture identified. Visualized orbits and globes are unremarkable. Atherosclerotic calci fication of the intracranial internal carotid arteries. IMPRESSION: 1. No acute intracranial abnormality by CT criteria. This exam was performed according to our departmental dose-optimization program, which includes autom ated exposure control, adjustment of the mA and/or kV according to patient size and/or use of iterati ve reconstruction technique. Electronically signed by: Dar Lewis 02/08/2020 12:02 AM CDT Due to temporary technical issues with the PACS/Fluency reporting system, reports are being signed by the in house radiologist without review as a courtesy to ensure prompt reporting. The interpreting r adiologist is fully responsible for the content of the report.
--- NOTE | 2020-02-08 21:24 | CON ---
Date of Consultation: 02/08/2020 Reason For Consultation: Uncontrolled hypertension. History Of Present Illness: This is an 84-year-old female, who has a very poorly controlled hyperten анна. I was asked to evaluate and help in management of her hypertension. The patient does not have any other major medical problems. She claimed that her blood pressure reach level 190/110 at home. She takes Norvasc and atenolol and denies having any chest pain. Apparently, she had a negative str ess test about 6 months ago. Evaluated her by bedside and she is completely asymptomatic. Past Medical History: Hypertension, acid reflex disease. Medications: Refer to reconciliation sheet for detailed list. Allergies: PROMETHAZINE. Social History: She does not smoke or drink. Does not use any drugs. Family History: No premature coronary artery disease or cancer. Review of Systems: All systems reviewed and they were negative except mentioned in the HPI. Physical Examination: Vital Signs: Temperature is 98.0, pulse 71, breathing at 18, blood pressure was 145/76, and the high est since she got into the hospital was 201/85. General: Pleasant elderly female, in no apparent distress. Head and Neck: Pupils are equal, react to light. Intact eye movements. No JVD. No cervical. Neck is supple. Thyroid is not enlarged. Lungs: Clear to auscultation bilaterally. No rhonchi, rales, or crackles. No accessory muscle use. Heart: Regular rate and rhythm. No extra sounds. Abdomen: Soft, nontender. Bowel sounds positive. No organomegaly. No masses or hernia. No rigidi ty or rebound. Extremities: There is no edema, clubbing, or cyanosis. Intact pulses. SKIN: No rash. Neurologic: Alert, awake, oriented x3. No acute focal deficits appreciated. Investigations: Sodium 139, potassium 3.7, BUN 17, creatinine 1.0. Troponin negative x3. NT-proBNP is 182. White blood count 7.5, hemoglobin 11.4, platelet count is 155. Assessment And Plan: Poorly controlled hypertension, responded well to the current therapy. Agree w ith adding Aldactone. Continue Norvasc. I will recommend if blood pressure continues to be poorly c ontrolled at this regimen to increase the Norvasc to 10 mg daily and at this point, I do not feel any further workup is needed as she is still has room to maximize blood pressure medications and medical therapy. I will be happy to follow the patient as an outpatient once discharged and appreciate the courtesy of this consultation. /PHILLIP Voice ID: [id number] Report ID: [id number]
[2020-02-09 05:39] LABS: Absolute Lymphocytes (CBC) 1.8 K/uL (0.7-4.9); Basophils % 1.8 % (0-1.3); Hematocrit 31.6 % (36.0-45.0); Lymphocytes % 37.8 % (15.3-44.8); MPV 9.7 fL (7.6-11.3); RBC Red Blood Cell Count 3.02 M/uL (3.86-4.86)
[2020-02-09 05:43] VITALS: BP 150/70
[2020-02-09 05:55] LABS: Potassium 3.4 mmol/L (3.5-5.1)
[2020-02-09] MEDS ORDERED: atenoloL 25 MG TAB PO SCH (06:00)
[2020-02-09] MEDS ORDERED: AMLODIPINE 5 MG TAB PO SCH (06:00)
[2020-02-09] MEDS ORDERED: THYROID 30 MG TAB PO SCH (06:30)
[2020-02-09 06:45] VITALS: TEMP 97.2
--- NOTE | 2020-02-09 08:46 | RAD REPORT ---
EXAM DESCRIPTION: US - Abdomen Pelvis Scan US - 02/09/2020 8:25 am CLINICAL HISTORY: BILATERAL RENAL ARTERY DOPPLER.Hypertension COMPARISON: No comparisons TECHNIQUE: Sonographic evaluation of the kidneys was performed with measurements obtained and gross anatomic assessment performed.Doppler evaluation of the renal arteries, interlobar arteries and aorta performed. Waveforms and velocities were recorded. The renal artery ratios and resistive index nay ues were calculated. FINDINGS: Right kidney is approximately 8.4 x 3.9 x 4.4 cm. Left kidney is approximately 8.6 x 4.6 x 4.4 cm. Cortical thickness is normal. Echogenicity is increased slightly. This could be body habitus artifact, medical renal disease or a combination. No hydronephrosis or suspicious mass. Limited asse ssment of a partially filled urinary bladder shows no suspicious finding. Doppler evaluation of the aorta, renal arteries and arcuate arteries show no suspicious velocity or w aveform pattern. Resistive index values for the right kidney range from 0.77-0.82 in value. Resistive index values for the left renal artery range from 0.72-0.76 in value. Arcuate artery resistive index values are 0.75 on the right and 0.74 on the left. Bilateral renal artery ratios are normal range. IMPRESSION: Normal renal artery ratios and normal or near normal resistive index values. No suspicio n for renal artery stenosis. No hydronephrosis or renal mass identifiable.
[2020-02-09] MEDS: ENOXAPARIN 40 MG/0.4 ML SQ SCH (08:55)
[2020-02-09] MEDS: ASPIRIN EC 81 MG TAB PO SCH (08:55)
[2020-02-09] MEDS ORDERED: PANTOPRAZOLE 40MG TABLET PO SCH (09:00)
[2020-02-09] MEDS ORDERED: SPIRONOLACTONE 25 MG TABLET PO SCH (09:00)
[2020-02-09 09:17] VITALS: O2SAT 95
--- NOTE | 2020-02-09 13:15 | P.DS ---
Admission Date: 02/08/20 Discharge Date: 02/09/20 Disposition: ROUTINE DISCHARGE Discharge Condition: FAIR Reason for Admission: BP WENT HIGH - Problems (1) Uncontrolled hypertension Status: Chronic Brief History of Present Illness: MS. LEMOS HAS BEEN TRIED ON MANY BP PILLS WITH POOR CONTROL. I HAD HER 24 HOUR URINE TEST DONE FOR CATECHOLAMINES THAT WAS NEGATIVE A FEW YEARS AGO. SHE HAS R SIDE CHEST PAIN WITH IT BUT NOT NOW. SHE RELATES HER BP RISE TO GERD SS ALSO. SHE HAS BEEN TO CARDILOGIST WITH NEG STRESS TEST ABOUT 6 MONTHS AGO. Hospital Course: MS [facility] IS DOING WELL. SHE WILL HAVE BETTER NUMBERS ON SPIRONOLACTONE COMPARED TO BEFORE. HER ARTERIAR RENAL DOPPLER IS NEG. FU IN ONE WEEK Vital Signs/Physical Exam: Temp Pulse Resp BP Pulse Ox 97.2 F 67 18 150/70 H 98 02/09/20 08:00 02/09/20 08:54 02/09/20 08:00 02/09/20 08:54 02/09/20 08:00 Laboratory Data at Discharge: WBC 4.7 K/uL (4.3-10.9) D 02/09/20 05:22 Hgb 11.0 g/dL (12.0-15.0) L 02/09/20 05:22 Hct 31.6 % (36.0-45.0) L 02/09/20 05:22 Plt Count 129 K/uL (152-406) L 02/09/20 05:22 PT 12.9 SECONDS (9.5-12.5) H 02/07/20 23:15 INR 1.10 02/07/20 23:15 Sodium 140 mmol/L (136-145) 02/09/20 05:22 Potassium 3.4 mmol/L (3.5-5.1) L 02/09/20 05:22 BUN 14 mg/dL (7-18) 02/09/20 05:22 Creatinine 0.89 mg/dL (0.55-1.3) 02/09/20 05:22 Glucose 96 mg/dL (74-106) 02/09/20 05:22 Magnesium 2.2 mg/dL (1.8-2.4) 02/07/20 23:15 Total Bilirubin 0.4 mg/dL (0.2-1.0) 09/20/20 23:15 AST 22 U/L (15-37) 02/07/20 23:15 ALT 29 U/L (12-78) 02/07/20 23:15 Alkaline Phosphatase 89 U/L (45-117) 02/07/20 23:15 Troponin I < 0.02 ng/mL (0.0-0.045) 02/08/20 06:52 Home Medications: atenoloL [Tenormin*] 25 mg PO [id number] 06/30/14 cloNIDine HCL [Catapres*] 0.1 mg PO PRN PRN 06/30/14 Amlodipine Besylate 5 mg PO [id number] 07/10/18 Hydralazine HCl 25 mg PO TID #90 tablet 02/08/20 Pantoprazole Sodium [Protonix] 40 mg PO DAILY 02/08/20 Spironolactone 50 mg PO DAILY #90 tablet 02/08/20 Thyroid,Pork [Churn Tender Thyroid] 15 mg PO DAILY 02/08/20 New Medications: Hydralazine HCl 25 mg PO TID #90 tablet Spironolactone 50 mg PO DAILY #90 tablet Followup: Wayne Cooper MD [Primary Care Provider] - Pawan Davison MD [ACTIVE - CAN ADMIT] -
== END 2020-02-09 09:57 | disposition home or self-care (01) ==
LOC: ER 22:42 → ERHOLD 02-08 02:17 → 2ND 02-08 02:57
PROVIDERS: ADMIT Internal Medicine; ATTEND Internal Medicine
DX: I10 Essential (primary) hypertension (principal); R07.9 Chest pain, unspecified; K21.9 Gastro-esophageal reflux disease without esophagitis; R73.03 Prediabetes; M31.6 Other giant cell arteritis; Z82.49 Family history of ischemic heart disease and other diseases of the circulatory system
CPT/HCPCS: 96365; 93005; 85025 ×2; 80048 ×2; 36415 ×2; 83735; 85049; 85610; 80076; 81003; 84484 ×3; 83880; 70450; 71045; 93975; 96375; 99285; J0360 ×2; J7040; G0378 ×3; J1650

== ENCOUNTER 2020-03-28 04:49 | Emergency (ER) | payer OTHER, MEDICARE ==
--- OUTSIDE RECORDS SUMMARY | 2020-03-28 04:50 | XMS REPORT | Clinical Summary ---
:1935 Author Organization [facility] Address [address] [place] [address] Care Team Providers Name Role Phone Asked, No Pcp Primary Care Provider Unavailable Allergies Not on File Medications No known medications Active Problems No known active problems Medical History Medical History Date Comments Hypertension 14 years Social History Tobacco Use Types Packs/Day Years Used Date Never Smoker Alcohol Use Drinks/Week oz/Week Comments Yes 1 Glasses of wine Sex Assigned at Date Recorded Not on file Last Filed Vital Signs Not on file Plan of Treatment Health Maintenance Due Date Last Done Comments SHINGLES VACCINES (#1) 1984 65+ PNEUMOCOCCAL VACCINE (1 of 1 - PPSV23) 1999 INFLUENZA VACCINE 12/19/2019 Results Not on fileafter 03/28/2019 Insurance Payer Benefit Plan / Subscriber ID Effective Dates Phone Addre ss Type Group MEDICARE MEDICARE PART A [id number] 1999-Present [facility] [place] AND B AARP AARP SUPPLEMENT [id number] 2018-Present Commercial Advance Directives For more information, please contact: [phone] Type Date Recorded Patient Hand Sprayer Explanati on Advance Directives, Living Will and Medical Power of Manager [employer]
--- NOTE | 2020-03-28 06:27 | ER ---
Nurse's Notes [facility] Name: Mulu Jimenez Age: 84 yrs Sex: Female : 1935 Arrival Date: 03/28/2020 Time: 04:53 Bed 7 Private MD: Diagnosis: HYPERTENSION Presentation: 03/28 05:18 Chief complaint: Patient states: FLUCTUATING BLOOD PRESSURE BETWEEN 160-200 SYSTOLIC. rv COMPLAINING OF HEADACHE. DENIES CHEST PAIN. Coronavirus screen: Client denies travel out of the [place] in the last 14 days. Ebola Screen: No symptoms or risks identified at this time. Initial Sepsis Screen: Does the patient meet any 2 criteria? No. Patient's initial sepsis screen is negative. Does the patient have a suspected source of infection? No. Patient's initial sepsis screen is negative. Risk Assessment: Do you want to hurt yourself or someone else? Patient reports no desire to harm self or others. Onset of symptoms was March 27, 2020 at 18:00. 05:18 Method Of Arrival: Ambulatory rv 05:18 Acuity: ROMINA 4 rv Triage Assessment: 05:21 General: Appears comfortable, Behavior is calm, cooperative. Pain: Complains of pain in rv HEAD. EENT: No signs and/or symptoms were reported regarding the EENT system. Neuro: Level of Consciousness is awake, alert, obeys commands, Oriented to person, place, time, situation. Cardiovascular: Denies chest pain, Patient's skin is warm and dry. Respiratory: Airway is patent Respiratory effort is even, unlabored. Derm: Skin is intact. Historical: - Allergies: 05:21 Phenergan; rv - PMHx: 05:21 GERD; Hypertension; Pre-Diabetes; Temporal Arteritis; rv - PSHx: 05:21 None; rv - Immunization history:: Adult Immunizations up to date. - Social history:: Smoking status: unknown. Screenin:22 Abuse screen: Denies threats or abuse. Denies injuries from another. Nutritional rv screening: No deficits noted. Tuberculosis screening: No symptoms or risk factors identified. Fall Risk None identified. Vital Signs: 05:18 BP 158 / 71; Pulse 72; Resp 16; Temp 98.4; Pulse Ox 100% ; rv 05:36 BP 126 / 61; Pulse 57; Resp 16; Pulse Ox 100% on R/A; rv 06:31 BP 127 / 62; Pulse 61; Resp 16; Pulse Ox 98% ; rv ED Course: 04:53 Patient arrived in ED. cl3 05:08 Josr Oakley, RN is Primary Nurse. rv 05:14 Juan J Jorgensen MD is Attending Physician. tw4 05:20 Triage completed. rv 05:21 Arm band placed on right wrist. Patient placed in the treatment room, on a stretcher, rv Patient notified of wait time. 05:21 No provider procedures requiring assistance completed. Patient did not have IV access rv during this emergency room visit. 05:22 Patient has correct armband on for positive identification. Pulse ox on. NIBP on. rv Administered Medications: No medications were administered Outcome: 06:27 Discharge ordered by . tw4 06:30 Discharged to home ambulatory. rv 06:30 Condition: good 06:30 Discharge instructions given to patient, Instructed on discharge instructions, follow up and referral plans. Demonstrated understanding of instructions, follow-up care. 06:31 Patient left the ED. rv Signatures: Juan J Jorgensen MD MD tw4 Jsor Oakley, RN RN rv Arden Alaniz cl3
--- NOTE | 2020-03-28 06:27 | EDPHYS ---
Physician Documentation [facility] Name: Mulu Jimenez Age: 84 yrs Sex: Female : 1935 Arrival Date: 03/28/2020 Time: 04:53 Bed 7 Private MD: ED Physician Juan J Jorgensen HPI: 03/28 05:44 This 84 yrs old Black Female presents to ER via Ambulatory with complaints of High tw4 Blood Pressure. 05:44 The patient has elevated blood pressure and discovered this at home, with a home tw4 device. Onset: The symptoms/episode began/occurred today. Modifying factors: The symptoms are aggravated by The symptoms are alleviated by remaining still. Associated signs and symptoms: Pertinent positives: headache. Severity of symptoms: At its worst the blood pressure was moderate, in the emergency department the blood pressure is unchanged. The patient has not experienced similar symptoms in the past. Historical: - Allergies: 05:21 Phenergan; rv - PMHx: 05:21 GERD; Hypertension; Pre-Diabetes; Temporal Arteritis; rv - PSHx: 05:21 None; rv - Immunization history:: Adult Immunizations up to date. - Social history:: Smoking status: unknown. ROS: 05:44 Constitutional: Negative for fever, chills, and weight loss, Cardiovascular: Negative tw4 for chest pain, palpitations, and edema, Respiratory: Negative for shortness of breath, cough, wheezing, and pleuritic chest pain, Abdomen/GI: Negative for abdominal pain, nausea, vomiting, diarrhea, and constipation, Back: Negative for injury and pain, MS/Extremity: Negative for injury and deformity, Skin: Negative for injury, rash, and discoloration, Neuro: Negative for headache, weakness, numbness, tingling, and seizure. Exam: 05:44 Constitutional: This is a well developed, well nourished patient who is awake, alert, tw4 and in no acute distress. Head/Face: Normocephalic, atraumatic. Cardiovascular: Regular rate and rhythm with a normal S1 and S2. No gallops, murmurs, or rubs. Normal PMI, no JVD. No pulse deficits. Respiratory: Lungs have equal breath sounds bilaterally, clear to auscultation and percussion. No rales, rhonchi or wheezes noted. No increased work of breathing, no retractions or nasal flaring. Abdomen/GI: Soft, non-tender, with normal bowel sounds. No distension or tympany. No guarding or rebound. No evidence of tenderness throughout. Back: No spinal tenderness. No costovertebral tenderness. Full range of motion. Skin: Warm, dry with normal turgor. Normal color with no rashes, no lesions, and no evidence of cellulitis. MS/ Extremity: Pulses equal, no cyanosis. Neurovascular intact. Full, normal range of motion. Neuro: Awake and alert, GCS 15, oriented to person, place, time, and situation. Cranial nerves II-XII grossly intact. Motor strength 5/5 in all extremities. Sensory grossly intact. Cerebellar exam normal. Normal gait. Vital Signs: 05:18 BP 158 / 71; Pulse 72; Resp 16; Temp 98.4; Pulse Ox 100% ; rv 05:36 BP 126 / 61; Pulse 57; Resp 16; Pulse Ox 100% on R/A; rv 06:31 BP 127 / 62; Pulse 61; Resp 16; Pulse Ox 98% ; rv MDM: 05:14 Patient medically screened. tw4 06:58 Data reviewed: vital signs, nurses notes. Counseling: I had a detailed discussion with [facility] the patient and/or guardian regarding: the historical points, exam findings, and any diagnostic results supporting the discharge/admit diagnosis. Special discussion: I discussed with the patient/guardian in detail that at this point there is no indication for admission to the hospital. It is understood, however, that if the symptoms persist or worsen the patient needs to return immediately for re-evaluation. 06:58 Counseling: I had a detailed discussion with the patient and/or guardian regarding: the 4 presence of at least one elevated blood pressure reading (>120/80) during this emergency department visit. Administered Medications: No medications were administered Disposition: 03/28/20 06:27 Discharged to Home. Impression: HYPERTENSION. - Condition is Stable. - Discharge Instructions: Hypertension. - Medication Reconciliation Form, Thank You Letter, Antibiotic Education, Prescription Opioid Use form. - Follow up: Private Physician; When: Upon discharge from the Emergency Department; Reason: Recheck today's complaints, Continuance of care, Re-evaluation by your physician. - Problem is new. - Symptoms have improved. Signatures: Juan J Jorgensen MD MD 4 Josr Oakley, RN RN rv Corrections: (The following items were deleted from the chart) 06:31 06:27 03/28/2020 06:27 Discharged to Home. Impression: HYPERTENSION. Condition is rv Stable. Forms are Medication Reconciliation Form, Thank You Letter, Antibiotic Education, Prescription Opioid Use. Follow up: Private Physician; When: Upon discharge from the Emergency Department; Reason: Recheck today's complaints, Continuance of care, Re-evaluation by your physician. Problem is new. Symptoms have improved. tw4
[2020-03-28 06:55] VITALS: TEMP 98.4
[2020-03-28 07:00] VITALS: BP 127/62; O2SAT 98
== END 2020-03-28 06:31 | disposition home or self-care (01) ==
LOC: ER 04:49
DX: I10 Essential (primary) hypertension (principal); R73.03 Prediabetes; Z88.8 Allergy status to other drugs, medicaments and biological substances
CPT/HCPCS: 99283

== ENCOUNTER 2020-06-23 07:47 | Emergency (ER) | payer OTHER, MEDICARE ==
--- OUTSIDE RECORDS SUMMARY | 2020-06-23 08:01 | XMS REPORT | Clinical Summary ---
:1935 Author Organization [facility] Address [address] [place] [address] Care Team Providers Name Role Phone Asked, [...] Health Maintenance Due Date Last Done Comments COVID-19 VACCINE (1 of 2) 1950 SHINGLES VACCINES (#1) 1984 65+ PNEUMOCOCCAL VACCINE (1 of 1 - PPSV23) 1999 INFLUENZA VACCINE 12/19/2019 Results Not on fileafter 2019 Insurance Payer Benefit Plan / Subscriber ID Effective Dates Phone Addre ss Type Group MEDICARE MEDICARE PART A [id number] 1999-Present [facility], [place] Medicare AND B AARP AARP SUPPLEMENT [id number] 2018-Present Commercial Advance Directives For more information, please contact: [phone] Type Date Recorded Patient Chief Of Anesthesiology Explanati on Advance Directives, Living Will and Medical Power of Pump Oiler
--- NOTE | 2020-06-23 10:12 | RAD REPORT ---
EXAM DESCRIPTION: Enzo Single View06/23/2020 9:52 am CLINICAL HISTORY: Hypertension COMPARISON: 2019 FINDINGS: The lungs appear clear of acute infiltrate. The heart is mildly enlarged IMPRESSION: No acute abnormalities displayed
[2020-06-23 10:16] LABS: Protime INR 1.02
[2020-06-23] MEDS ORDERED: cloNIDine HCL 0.1 MG TAB ONE (10:27)
[2020-06-23] MEDS ORDERED: HYDRALAZINE HCL 10 MG TABLET ONE (10:28)
[2020-06-23 10:48] LABS: Absolute Lymphocytes (CBC) 1.2 K/uL (0.7-4.9); Basophils % 2.3 % (0-1.3); Hematocrit 35.7 % (36.0-45.0); Lymphocytes % 24.3 % (15.3-44.8); MPV 9.8 fL (7.6-11.3); RBC Red Blood Cell Count 3.42 M/uL (3.86-4.86)
--- NOTE | 2020-06-23 10:55 | RAD REPORT ---
EXAM DESCRIPTION: CT - Head Brain Wo Cont - 06/23/2020 10:41 am CLINICAL HISTORY: Headache COMPARISON: 2019 TECHNIQUE: Computed axial tomography of the head was obtained. IV contrast was not requested. All CT scans are performed using dose optimization technique as appropriate and may include automated exposure control or mA/KV adjustment according to patient size. FINDINGS: An intracranial bleed is not seen . The ventricles are normal in caliber. No extra-axial fluid collection is noted. Mild low-density areas within periventricular, deep and subcortical white matter likely represent is chemic changes secondary to small vessel disease. Fluid within the sinuses/ mastoids is not seen. IMPRESSION: No acute intracranial abnormality is seen. If patient's symptoms persist MRI of the bra in would be recommended.
[2020-06-23 11:02] LABS: ALT/SGPT 29 U/L (12-78); AST/SGOT 20 U/L (15-37); Albumin 4.3 g/dL (3.4-5.0); Alkaline Phosphatase 92 U/L (45-117); BUN Blood Urea Nitrogen 10 mg/dL (7-18); Bicarbonate 30 mmol/L (21-32); Bilirubin Direct 0.1 mg/dL (0-0.2); Bilirubin Total 0.6 mg/dL (0.2-1.0); Glucose Level 110 mg/dL (74-106); Magnesium 2.3 mg/dL (1.8-2.4); NT PRO-BNP 340 pg/mL (<450); Potassium 3.4 mmol/L (3.5-5.1); Protein, Total 8.5 g/dL (6.4-8.2); Sodium Level 143 mmol/L (136-145); Troponin (Emerg Dept Use Only) < 0.02 ng/mL (0.0-0.045)
--- NOTE | 2020-06-23 11:48 | EDPHYS ---
Physician Documentation [facility] Name: Mulu Jimenez Age: 85 yrs Sex: Female : 1935 Arrival Date: 06/23/2020 Time: 07:51 Bed 15 Private MD: Wayne Cooper V ED Physician Alonso Bello HPI: 06/23 16:29 This 85 yrs old Black Female presents to ER via Ambulatory with complaints of High kdr Blood Pressure. 16:29 The patient has elevated blood pressure and discovered this at home. Onset: The kdr symptoms/episode began/occurred at an unknown time. 17:05 Modifying factors: The symptoms are aggravated by Nothing, The symptoms are alleviated kdr by Nothing. Associated signs and symptoms: Pertinent positives: headache. Severity of symptoms: At its worst the blood pressure was moderate, in the emergency department the blood pressure is improved, mildly. The patient has experienced similar episodes in the past, a few times. The patient has been recently seen by a physician: Dr. Kenneth Cooper has been adjusting her BP meds. Historical: - Allergies: 07:59 Phenergan; sv - PMHx: 07:59 GERD; Hypertension; Pre-Diabetes; Temporal Arteritis; sv - PSHx: 07:59 None; sv ROS: 17:05 Constitutional: Negative for fever, chills, and weight loss, Eyes: Negative for injury, kdr pain, redness, and discharge, Neck: Negative for injury, pain, and swelling, Cardiovascular: Negative for chest pain, palpitations, and edema, Respiratory: Negative for shortness of breath, cough, wheezing, and pleuritic chest pain, Abdomen/GI: Negative for abdominal pain, nausea, vomiting, diarrhea, and constipation, Back: Negative for injury and pain, : Negative for injury, bleeding, discharge, and swelling, MS/Extremity: Negative for injury and deformity, Skin: Negative for injury, rash, and discoloration, Psych: Negative for depression, anxiety, suicide ideation, homicidal ideation, and hallucinations, Allergy/Immunology: Negative for hives, rash, and allergies, Endocrine: Negative for neck swelling, polydipsia, polyuria, polyphagia, and marked weight changes, Hematologic/Lymphatic: Negative for swollen nodes, abnormal bleeding, and unusual bruising. 17:05 Neuro: Positive for headache, Negative for altered mental status, dizziness, gait disturbance, loss of consciousness, numbness, seizure activity, speech changes, syncope, near syncope, tingling, tinnitus, tremor, visual changes, weakness, acute changes. Exam: 17:05 Constitutional: This is a well developed, well nourished patient who is awake, alert, kdr and in no acute distress. Head/Face: Normocephalic, atraumatic. Eyes: Pupils equal round and reactive to light, extra-ocular motions intact. Lids and lashes normal. Conjunctiva and sclera are non-icteric and not injected. Cornea within normal limits. Periorbital areas with no swelling, redness, or edema. Neck: Trachea midline, no thyromegaly or masses palpated, and no cervical lymphadenopathy. Supple, full range of motion without nuchal rigidity, or vertebral point tenderness. No Meningismus. Chest/axilla: Normal chest wall appearance and motion. Nontender with no deformity. No lesions are appreciated. Cardiovascular: Regular rate and rhythm with a normal S1 and S2. No gallops, murmurs, or rubs. Normal PMI, no JVD. No pulse deficits. Respiratory: Lungs have equal breath sounds bilaterally, clear to auscultation and percussion. No rales, rhonchi or wheezes noted. No increased work of breathing, no retractions or nasal flaring. Abdomen/GI: Soft, non-tender, with normal bowel sounds. No distension or tympany. No guarding or rebound. No evidence of tenderness throughout. Back: No spinal tenderness. No costovertebral tenderness. Full range of motion. MS/ Extremity: Pulses equal, no cyanosis. Neurovascular intact. Full, normal range of motion. Neuro: Awake and alert, GCS 15, oriented to person, place, time, and situation. Cranial nerves II-XII grossly intact. Motor strength 5/5 in all extremities. Sensory grossly intact. Cerebellar exam normal. Normal gait. Psych: Awake, alert, with orientation to person, place and time. Behavior, mood, and affect are within normal limits. Vital Signs: 07:59 BP 179 / 77; Pulse 86; Resp 16; Temp 98.7; Pulse Ox 99% ; Weight 72.57 kg; Height 5 ft. sv 5 in. (165.10 cm); 10:46 BP 180 / 72; Pulse 53; Resp 17; Pulse Ox 100% on R/A; tw2 11:12 BP 163 / 82; Pulse 63; Resp 17; Pulse Ox 100% on R/A; tw2 11:46 BP 149 / 72; Pulse 57; Resp 17; Pulse Ox 100% on R/A; tw2 07:59 Body Mass Index 26.62 (72.57 kg, 165.10 cm) sv MDM: 11:47 Patient medically screened. kdr 17:05 Data reviewed: vital signs, nurses notes, lab test result(s), radiologic studies. kdr Counseling: I had a detailed discussion with the patient and/or guardian regarding: the historical points, exam findings, and any diagnostic results supporting the discharge/admit diagnosis, lab results, radiology results, the need for outpatient follow up. Physician consultation: Wayne Cooper MD regarding consult, patient's condition, outpatient follow-up, next week, and will see patient in office, tomorrow. 06/23 09:08 Order name: Basic Metabolic Panel; Complete Time: : kdr 06/23 09:08 Order name: CBC with Diff; Complete Time: kdr 06/23 09:08 Order name: LFT's; Complete Time: : kdr 06/23 09:08 Order name: Magnesium; Complete Time: : kdr 06/23 09:08 Order name: NT PRO-BNP; Complete Time: : kdr 06/23 09:08 Order name: PT-INR; Complete Time: : kdr 06/23 09:08 Order name: Troponin (emerg Dept Use Only); Complete Time: : kdr 06/23 09:08 Order name: XRAY Chest (1 view); Complete Time: : kdr 06/23 09:08 Order name: EKG; Complete Time: 09: kdr 06/23 09:08 Order name: Cardiac monitoring; Complete Time: 11: kdr 06/23 09:08 Order name: EKG - Nurse/Tech; Complete Time: 11: kdr 06/23 09:50 Order name: CT Head Brain wo Cont; Complete Time: 11: kdr 06/23 09:08 Order name: IV Saline Lock; Complete Time: 11: kdr 06/23 09:08 Order name: Labs collected and sent; Complete Time: 11:12 kdr 06/23 09:08 Order name: O2 Per Protocol; Complete Time: 09:17 kdr 06/23 09:08 Order name: O2 Sat Monitoring; Complete Time: 09:17 kdr 06/23 10:19 Order name: Labs - recollect needed: everything; Complete Time: 10:54 sv Administered Medications: 10:30 Drug: cloNIDine 0.2 mg Route: PO; tw2 11:48 Follow up: Response: No adverse reaction; Blood pressure is lowered tw2 10:30 Drug: HydrALAZINE 25 mg Route: PO; tw2 11:48 Follow up: Response: No adverse reaction; Blood pressure is lowered tw2 Disposition: 06/23/20 11:47 Discharged to Home. Impression: Hypertensive heart disease - Acute exacerbation. - Condition is Stable. - Discharge Instructions: Hypertension, [id number]. - Prescriptions for hydralazine 50 mg Oral tablet - take 1 tablet by ORAL route 4 times per day with food; 20 tablet. - Medication Reconciliation Form, Thank You Letter form. - Follow up: Wayne Cooper MD; When: Tomorrow; Reason: Further diagnostic work-up, Recheck today's complaints, Continuance of care, Re-evaluation by your physician. - Problem is an acute exacerbation. - Symptoms have improved. Signatures: Dispatcher [employer] EDRadha Nunez RN RN Alonso Bello MD MD kdr Anna Martinez RN RN tw2 Corrections: (The following items were deleted from the chart) 12:03 11:47 06/23/2020 11:47 Discharged to Home. Impression: Hypertensive heart disease - tw2 Acute exacerbation. Condition is Stable. Forms are Medication Reconciliation Form, Thank You Letter, Antibiotic Education, Prescription Opioid Use. Follow up: Wayne Cooper; When: Tomorrow; Reason: Further diagnostic work-up, Recheck today's complaints, Continuance of care, Re-evaluation by your physician. Problem is an acute exacerbation. Symptoms have improved. kdr
--- NOTE | 2020-06-23 11:48 | ER ---
Nurse's Notes [facility] Name: Mulu Jimenez Age: 85 yrs Sex: Female : 1935 Arrival Date: 06/23/2020 Time: 07:51 Bed 15 Private MD: Wayne Cooper V Diagnosis: Hypertensive heart disease-Acute exacerbation Presentation: 06/23 07:58 Chief complaint: Patient states: HTN x 2 days. Pt took her daily BP meds this morning sv around 0400. Coronavirus screen: Client denies travel out of the [place] in the last 14 days. At this time, the client does not indicate any symptoms associated with coronavirus-19. Ebola Screen: No symptoms or risks identified at this time. Risk Assessment: Do you want to hurt yourself or someone else? Patient reports no desire to harm self or others. Onset of symptoms was June 21, 2020. 07:58 Method Of Arrival: Ambulatory sv 07:58 Acuity: ROMINA 4 sv 07:59 Initial Sepsis Screen: Does the patient meet any 2 criteria? No. Patient's initial sv sepsis screen is negative. Does the patient have a suspected source of infection? No. Patient's initial sepsis screen is negative. Triage Assessment: 08:01 General: Appears in no apparent distress. comfortable, Behavior is calm, cooperative, sv appropriate for age. Pain: Denies pain. Neuro: Level of Consciousness is awake, alert, obeys commands, Oriented to person, place, time, situation, Gait is steady. Respiratory: Respiratory effort is even, unlabored. Historical: - Allergies: 07:59 Phenergan; sv - PMHx: 07:59 GERD; Hypertension; Pre-Diabetes; Temporal Arteritis; sv - PSHx: 07:59 None; sv Screenin:41 Abuse screen: Denies threats or abuse. Nutritional screening: No deficits noted. tw2 Tuberculosis screening: No symptoms or risk factors identified. Fall Risk None identified. Assessment: 09:00 General: Appears in no apparent distress. slender, well groomed. Pain: Denies pain. tw2 Neuro: Level of Consciousness is awake, alert, obeys commands, Oriented to person, place, time, situation. Cardiovascular: Capillary refill < 3 seconds Patient's skin is warm and dry. Respiratory: Airway is patent Respiratory effort is even, unlabored, Respiratory pattern is regular, symmetrical. GI: No signs and/or symptoms were reported involving the gastrointestinal system. Abdomen is flat. : No signs and/or symptoms were reported regarding the genitourinary system. EENT: No signs and/or symptoms were reported regarding the EENT system. Derm: Skin is intact, is healthy with good turgor. Musculoskeletal: Range of motion: intact in all extremities. 10:00 Reassessment: Patient appears in no apparent distress at this time. No changes from tw2 previously documented assessment. Patient and/or family updated on plan of care and expected duration. Pain level reassessed. Patient is alert, oriented x 3, equal unlabored respirations, skin warm/dry/pink. 11:00 Reassessment: Patient appears in no apparent distress at this time. No changes from tw2 previously documented assessment. Patient and/or family updated on plan of care and expected duration. Pain level reassessed. Patient is alert, oriented x 3, equal unlabored respirations, skin warm/dry/pink. 11:47 Reassessment: Patient appears in no apparent distress at this time. No changes from tw2 previously documented assessment. Patient and/or family updated on plan of care and expected duration. Pain level reassessed. Patient is alert, oriented x 3, equal unlabored respirations, skin warm/dry/pink. 12:03 Reassessment: Patient appears in no apparent distress at this time. No changes from tw2 previously documented assessment. Patient and/or family updated on plan of care and expected duration. Pain level reassessed. Patient is alert, oriented x 3, equal unlabored respirations, skin warm/dry/pink. Vital Signs: 07:59 BP 179 / 77; Pulse 86; Resp 16; Temp 98.7; Pulse Ox 99% ; Weight 72.57 kg; Height 5 ft. sv 5 in. (165.10 cm); 10:46 BP 180 / 72; Pulse 53; Resp 17; Pulse Ox 100% on R/A; tw2 11:12 BP 163 / 82; Pulse 63; Resp 17; Pulse Ox 100% on R/A; tw2 11:46 BP 149 / 72; Pulse 57; Resp 17; Pulse Ox 100% on R/A; tw2 07:59 Body Mass Index 26.62 (72.57 kg, 165.10 cm) sv ED Course: 07:51 Patient arrived in ED. mr 07:51 Wayne Cooper MD is Private Physician. mr 07:58 Arm band placed on. sv 07:59 Triage completed. sv 09:00 Anna Martinez RN is Primary Nurse. tw2 09:00 Placed in gown. Bed in low position. Call light in reach. osd clerk on. Pulse ox tw2 on. NIBP on. Warm blanket given. 09:06 Alonso Bello MD is Attending Physician. kdr 09:30 EKG done, by ED staff, reviewed by Alonso Bello MD. sv 10:05 XRAY Chest (1 view) In Process Unspecified. EDMS 10:15 Missed attempt(s): 24 gauge in left hand. by CHANDLER Wallace and director of emergency nursing. Bleeding tw2 controlled, band aid applied, catheter tip intact. 10:20 Missed attempt(s): 22 gauge in right antecubital area. by FRANCES[employer]. Bleeding controlled, tw2 band aid applied, catheter tip intact. Missed attempt(s): 24 gauge in right hand. by FRANCESTechBessie Bleeding controlled, band aid applied, catheter tip intact. 10:30 Inserted saline lock: 22 gauge in left forearm, using aseptic technique. Blood tw2 collected. 10:40 CT Head Brain wo Cont In Process Unspecified. EDMS 11:47 Wayne Cooper MD is Referral Physician. kdr 12:03 No provider procedures requiring assistance completed. IV discontinued, intact, tw2 bleeding controlled, No redness/swelling at site. Pressure dressing applied. Administered Medications: 10:30 Drug: cloNIDine 0.2 mg Route: PO; tw2 11:48 Follow up: Response: No adverse reaction; Blood pressure is lowered tw2 10:30 Drug: HydrALAZINE 25 mg Route: PO; tw2 11:48 Follow up: Response: No adverse reaction; Blood pressure is lowered tw2 Outcome: 11:47 Discharge ordered by . kdr 12:03 Discharged to home ambulatory. tw2 12:03 Condition: stable 12:03 Discharge instructions given to patient, Instructed on discharge instructions, follow up and referral plans. medication usage, Demonstrated understanding of instructions, follow-up care, medications, Prescriptions given X 1. 12:03 Patient left the ED. tw2 Signatures: Dispatcher [employer] EDRadha Nunez RN RN Alonso Bello MD MD [facility] m[facility] Anna Martinez RN RN tw2 Corrections: (The following items were deleted from the chart) 08: 07:58 Chief complaint: Patient states: HTN x 2 days. sv sv 08: 07:59 Pulse 86bpm; Resp 16bpm; Pulse Ox 99%; Temp 98.7F; 72.57 kg; Height 5 ft. 5 in.; sv BMI: 26.6; sv
[2020-06-23 12:18] VITALS: TEMP 98.7
[2020-06-23 12:19] VITALS: O2SAT 100
[2020-06-23 12:22] VITALS: BP 149/72
== END 2020-06-23 12:03 | disposition home or self-care (01) ==
LOC: ER 07:47
DX: I11.9 Hypertensive heart disease without heart failure (principal); I10 Essential (primary) hypertension; Z88.8 Allergy status to other drugs, medicaments and biological substances
CPT/HCPCS: 36415; 70450; 71045; 80048; 80076; 83735; 83880; 84484; 85025; 85610; 93005; 99285

== ENCOUNTER 2020-10-24 11:10 | Observation (INO) | payer OTHER, MEDICARE ==
--- NOTE | 2020-10-24 12:06 | RAD REPORT ---
EXAM DESCRIPTION: Enzo Single View10/24/2020 12:01 pm CLINICAL HISTORY: Chest pain COMPARISON: June 2020 FINDINGS: The lungs appear clear of acute infiltrate. The heart is mildly enlarged IMPRESSION: No acute abnormalities displayed
[2020-10-24] MEDS ORDERED: ASPIRIN 81 MG CHEWABLE TABLET ONE (12:34)
[2020-10-24] MEDS ORDERED: NITROGLYCERIN 0.4 MG/TAB SL ONE (12:34)
[2020-10-24 12:49] LABS: Absolute Lymphocytes (CBC) 1.3 K/uL (0.7-4.9); Basophils % 0.4 % (0-1.3); Hematocrit 34.5 % (36.0-45.0); Lymphocytes % 25.5 % (15.3-44.8); MPV 10.4 fL (7.6-11.3); RBC Red Blood Cell Count 3.35 M/uL (3.86-4.86)
[2020-10-24 12:52] LABS: Protime INR 1.15
[2020-10-24 13:10] LABS: ALT/SGPT 27 U/L (12-78); AST/SGOT 18 U/L (15-37); Albumin 3.8 g/dL (3.4-5.0); Alkaline Phosphatase 72 U/L (45-117); BUN Blood Urea Nitrogen 15 mg/dL (7-18); Bicarbonate 29 mmol/L (21-32); Bilirubin Direct 0.2 mg/dL (0-0.2); Bilirubin Total 0.5 mg/dL (0.2-1.0); Glucose Level 128 mg/dL (74-106); Magnesium 2.2 mg/dL (1.8-2.4); NT PRO-BNP 245 pg/mL (<450); Potassium 3.6 mmol/L (3.5-5.1); Protein, Total 7.6 g/dL (6.4-8.2); Sodium Level 140 mmol/L (136-145); Troponin (Emerg Dept Use Only) < 0.02 ng/mL (0.0-0.045)
--- NOTE | 2020-10-24 14:12 | ER ---
Nurse's Notes [facility] Name: Mulu Jimenez Age: 85 yrs Sex: Female : 1935 Arrival Date: 10/24/2020 Time: 11:14 Bed 13 Private MD: Wayne Cooper V Diagnosis: Chest pain, unspecified Presentation: 10/24 11:25 Chief complaint: Patient states: "I have been having chest pain/pressure since 0130 jd3 this morning.". Coronavirus screen: At this time, the client does not indicate any symptoms associated with coronavirus-19. Ebola Screen: Patient negative for fever greater than or equal to 101.5 degrees Fahrenheit, and additional compatible Ebola Virus Disease symptoms. Initial Sepsis Screen: Does the patient meet any 2 criteria? No. Patient's initial sepsis screen is negative. Does the patient have a suspected source of infection? No. Patient's initial sepsis screen is negative. Risk Assessment: Do you want to hurt yourself or someone else? Patient reports no desire to harm self or others. Onset of symptoms was October 24, 2020. 11:25 Method Of Arrival: Wheelchair jd3 11:25 Acuity: ROMINA 3 jd3 Triage Assessment: 11:30 General: Appears in no apparent distress. comfortable, Behavior is cooperative, bp appropriate for age, anxious. Pain: Complains of pain in chest. EENT: No deficits noted. Neuro: No deficits noted. Cardiovascular: Reports chest pain, Rhythm is sinus rhythm. Respiratory: No deficits noted. GI: No signs and/or symptoms were reported involving the gastrointestinal system. : No signs and/or symptoms were reported regarding the genitourinary system. Derm: No deficits noted. Musculoskeletal: No deficits noted. Historical: - Allergies: 11:26 Phenergan; jd3 - Home Meds: 11:26 atenolol 25 mg Oral tab 1 tab once daily [Active]; clonidine HCl 0.1 mg Oral tab 1 tab jd3 as needed [Active]; Edarbi Oral [Active]; - PMHx: 11:26 GERD; Hypertension; Pre-Diabetes; Temporal Arteritis; jd3 - PSHx: 11:26 None; jd3 - Immunization history:: Adult Immunizations up to date. - Social history:: Smoking status: Patient/guardian denies using tobacco, but has a distant history of tobacco abuse. Screenin:30 Abuse screen: Denies threats or abuse. Denies injuries from another. Nutritional bp screening: No deficits noted. Tuberculosis screening: No symptoms or risk factors identified. Fall Risk None identified. Assessment: 11:30 General: SEE TRIAGE NOTE. bp 12:30 Reassessment: Patient appears in no apparent distress at this time. No changes from bp previously documented assessment. Patient and/or family updated on plan of care and expected duration. Pain level reassessed. Patient is alert, oriented x 3, equal unlabored respirations, skin warm/dry/pink. 13:48 Reassessment: Patient appears in no apparent distress at this time. No changes from bp previously documented assessment. Patient and/or family updated on plan of care and expected duration. Pain level reassessed. Patient is alert, oriented x 3, equal unlabored respirations, skin warm/dry/pink. 16:00 Reassessment: No changes from previously documented assessment. Patient and/or family bp updated on plan of care and expected duration. Pain level reassessed. Patient is alert, oriented x 3, equal unlabored respirations, skin warm/dry/pink. ADMIT INITIATED. 18:08 Reassessment: PT ON ER HOLD, SEE [facility]. ANA ATTENDING. bp 19:08 Reassessment: Patient appears in no apparent distress at this time. Patient and/or ad5 family updated on plan of care and expected duration. Pain level reassessed. Patient is alert, oriented x 3, equal unlabored respirations, skin warm/dry/pink. Pt denies questions/concerns, given water per request. 19:59 Reassessment: Patient and/or family updated on plan of care and expected duration. Pain ea level reassessed. Report given to receiving nurse on second floor. Pt left ED via wheelchair tolerating well. Vital Signs: 11:26 BP 172 / 77; Pulse 76; Resp 17 S; Temp 98.3(TE); Pulse Ox 97% on R/A; Weight 72.57 kg jd3 (R); Height 5 ft. 5 in. (165.10 cm) (R); Pain 5/10; 12:30 BP 161 / 85; Pulse 59; Resp 16; Pulse Ox 100% ; bp 13:30 BP 160 / 79; Pulse 57; Resp 16; Pulse Ox 100% ; bp 14:00 BP 169 / 82; Pulse 57; Resp 16; Pulse Ox 100% ; bp 16:00 BP 190 / 93; Pulse 72; Resp 17; Temp 97.3; Pulse Ox 98% ; bp 11:26 Body Mass Index 26.63 (72.57 kg, 165.10 cm) jd3 ED Course: 11:14 Patient arrived in ED. as 11:14 Wayne Cooper MD is Private Physician. as 11:15 [facility]. pm1 11:15 Jm Durand MD is Attending Physician. pm1 11:25 Triage completed. jd3 11:26 Arm band placed on. jd3 11:30 Patient has correct armband on for positive identification. Placed in gown. Bed in low bp position. Call light in reach. Side rails up X2. radar air traffic controller on. Pulse ox on. NIBP on. 11:36 Vega Thompson RN is Primary Nurse. bp 12:00 XRAY Chest (1 view) In Process Unspecified. EDMS 12:34 Inserted saline lock: 20 gauge in right forearm, using aseptic technique. Blood bp collected. 12:34 Patient maintains SpO2 saturation greater than 95% on room air. bp 14:11 Wayne Cooper MD is Hospitalizing Provider. pm1 14:31 CT Aorta for Dissection In Process Unspecified. EDMS 18:11 No provider procedures requiring assistance completed. Patient admitted, IV remains in bp place. Administered Medications: 12:10 Drug: Nitroglycerin 0.4 mg Route: Sublingual; bp 16:19 Follow up: Response: No adverse reaction bp 12:35 Drug: Aspirin Chewable Tablet 324 mg Route: PO; bp 15:45 Follow up: Response: No adverse reaction bp 14:30 Drug: Pepcid (famotidine) 20 mg Route: IVP; Site: right forearm; bp 16:18 Follow up: Response: No adverse reaction bp Outcome: 14:12 Decision to Hospitalize by Provider. pm1 18:11 Admitted to ER Hold. Please see [facility] for further documentation. bp 19:59 Condition: stable ea 20:22 Patient left the ED. ea Signatures: Dispatcher [employer] EDMS Faye Tabor as Michael Pitts NP RAILROAD TRACK MECHANIC pm1 Kristy Mendoza RN Shant Chicas ea, RN RN jd3 Vega Thompson RN RN Daniel Clark Corrections: (The following items were deleted from the chart) 16:27 16:00 BP 169 / 82; Pulse 57bpm; Resp 16bpm; Pulse Ox 100%; bp bp
--- NOTE | 2020-10-24 14:13 | EDPHYS ---
Physician Documentation [facility] Name: Mulu Jimenez Age: 85 yrs Sex: Female : 1935 Arrival Date: 10/24/2020 Time: 11:14 Bed 13 Private MD: Wayne Cooper V ED Physician Jm Durand HPI: 10/24 11:36 This 85 yrs old Black Female presents to ER via Wheelchair with complaints of Chest pm1 Pain. 11:36 The patient or guardian reports chest pain that is located primarily in the mid-sternal pm1 area. Onset: this morning, at 01:30. The pain does not radiate. Associated signs and symptoms: Pertinent positives: shortness of breath, Pertinent negatives: abdominal pain, diaphoresis, dizziness, nausea, vomiting. The chest pain is described as a pressure. Duration: The patient or guardian reports a single episode, that is still ongoing. Modifying factors: The symptoms are alleviated by NTG, this morning at onset of pain. Chest pain continued but she did not take any additional NTG. Presented to the ER because the pain did not resolve. Severity of pain: in the emergency department the pain is unchanged is a 5 / 10. The patient has not experienced similar symptoms in the past. The patient has not recently seen a physician, the patient's primary care provider is Dr. Cooper. Historical: - Allergies: 11:26 Phenergan; jd3 - Home Meds: 11:26 atenolol 25 mg Oral tab 1 tab once daily [Active]; clonidine HCl 0.1 mg Oral tab 1 tab jd3 as needed [Active]; Edarbi Oral [Active]; - PMHx: 11:26 GERD; Hypertension; Pre-Diabetes; Temporal Arteritis; jd3 - PSHx: 11:26 None; jd3 - Immunization history:: Adult Immunizations up to date. - Social history:: Smoking status: Patient/guardian denies using tobacco, but has a distant history of tobacco abuse. ROS: 11:36 Constitutional: Negative for fever, chills, and weight loss. pm1 11:36 Abdomen/GI: Negative for abdominal pain, nausea, vomiting, diarrhea, and constipation, Back: Negative for injury and pain, MS/Extremity: Negative for injury and deformity, Skin: Negative for injury, rash, and discoloration, Neuro: Negative for headache, weakness, numbness, tingling, and seizure. 11:36 Cardiovascular: Positive for chest pain, Negative for edema, palpitations. 11:36 Respiratory: Positive for shortness of breath, Negative for cough, sputum production, wheezing. 11:36 All other systems are negative. Exam: 11:36 Constitutional: This is a well developed, well nourished patient who is awake, alert, pm1 and in no acute distress. Head/Face: Normocephalic, atraumatic. 11:36 Back: No spinal tenderness. No costovertebral tenderness. Full range of motion. Skin: Warm, dry with normal turgor. Normal color with no rashes, no lesions, and no evidence of cellulitis. MS/ Extremity: Pulses equal, no cyanosis. Neurovascular intact. Full, normal range of motion. 11:36 Chest/axilla: Exam negative for acute changes, Inspection: normal, Palpation: is normal. 11:36 Cardiovascular: Rate: normal, Rhythm: regular, Pulses: no pulse deficits are appreciated, Edema: trace edema to left vincent. 11:36 Respiratory: Exam negative for acute changes, respiratory distress, shortness of breath, Breath sounds: are clear throughout. 11:36 Abdomen/GI: Inspection: abdomen appears normal, Palpation: abdomen is soft and non-tender, in all quadrants. 11:36 Neuro: Exam negative for acute changes, Orientation: is normal, Mentation: is normal, Motor: is normal, moves all fours, Sensation: is normal, no obvious gross deficits. Vital Signs: 11:26 BP 172 / 77; Pulse 76; Resp 17 S; Temp 98.3(TE); Pulse Ox 97% on R/A; Weight 72.57 kg jd3 (R); Height 5 ft. 5 in. (165.10 cm) (R); Pain 5/10; 12:30 BP 161 / 85; Pulse 59; Resp 16; Pulse Ox 100% ; bp 13:30 BP 160 / 79; Pulse 57; Resp 16; Pulse Ox 100% ; bp 14:00 BP 169 / 82; Pulse 57; Resp 16; Pulse Ox 100% ; bp 16:00 BP 190 / 93; Pulse 72; Resp 17; Temp 97.3; Pulse Ox 98% ; bp 11:26 Body Mass Index 26.63 (72.57 kg, 165.10 cm) jd3 MDM: 11:44 Patient medically screened. pm1 13:35 Counseling: I had a detailed discussion with the patient and/or guardian regarding: the pm1 historical points, exam findings, and any diagnostic results supporting the discharge/admit diagnosis, lab results, radiology results, the need for further work-up and treatment in the hospital. 14:10 Data reviewed: vital signs. Data interpreted: Pulse oximetry: on room air is 100 %. pm1 Interpretation: normal. 14:11 Physician consultation: Wayne Cooper MD was called at 14:11, was contacted at 14:11, pm1 regarding admission, patient's condition, and will see patient would like further tests performed, CT aorta dissection . 10/24 11:15 Order name: Basic Metabolic Panel; Complete Time: 13:21 pm1 10/24 11:15 Order name: CBC with Diff; Complete Time: 13:21 pm1 10/24 11:15 Order name: LFT's; Complete Time: 13:21 pm1 10/24 11:15 Order name: Magnesium; Complete Time: 13:21 pm1 10/24 11:15 Order name: NT PRO-BNP; Complete Time: 13:21 pm1 10/24 11:15 Order name: PT-INR; Complete Time: 13:21 pm1 10/24 11:15 Order name: Troponin (emerg Dept Use Only); Complete Time: 13:21 pm1 10/24 11:15 Order name: XRAY Chest (1 view); Complete Time: 12:09 pm1 10/24 12:21 Order name: COVID-19 : Document "Date of Symptom Onset" if Symptomatic. sv 10/24 14:10 Order name: CT Aorta for Dissection; Complete Time: 14:57 pm1 10/24 19:06 Order name: Troponin I; Complete Time: 19:16 EDMS 10/24 19:44 Order name: SARS-COV-2 RT PCR EDMS 10/24 11:15 Order name: EKG; Complete Time: 11:16 pm1 10/24 11:15 Order name: Cardiac monitoring; Complete Time: 12:49 pm1 10/24 11:15 Order name: EKG - Nurse/Tech; Complete Time: 12:10 pm1 10/24 11:15 Order name: IV Saline Lock; Complete Time: 12:49 pm1 10/24 11:15 Order name: Labs collected and sent; Complete Time: 12:49 pm1 10/24 11:15 Order name: O2 Per Protocol; Complete Time: 12:10 pm1 10/24 11:15 Order name: O2 Sat Monitoring; Complete Time: 12:10 pm1 Administered Medications: 12:10 Drug: Nitroglycerin 0.4 mg Route: Sublingual; bp 16:19 Follow up: Response: No adverse reaction bp 12:35 Drug: Aspirin Chewable Tablet 324 mg Route: PO; bp 15:45 Follow up: Response: No adverse reaction bp 14:30 Drug: Pepcid (famotidine) 20 mg Route: IVP; Site: right forearm; bp 16:18 Follow up: Response: No adverse reaction bp Disposition: 10/25 07:06 Co-signature as Attending Physician, Jm Durand MD. rn Disposition: 10/24/20 14:12 Hospitalization ordered by Wayne Cooper for Observation. Preliminary diagnosis is Chest pain, unspecified. - Bed requested for Telemetry/MedSurg (Inpatient). - Status is Observation. ea - Condition is Stable. - Problem is new. - Symptoms have improved. Signatures: Dispatcher [employer] Radha Landin RN Enid Weems RN Mary Robertson RN RN dw Nieto, Roman, MD MD rn Marinas, Patrick, BHAVNA MANAGER INFORMATION pm1 Kristy Mendoza RN RN ea Davies, Jonathon RN CHANDLER jVega Cuba RN RN bp Corrections: (The following items were deleted from the chart) 10/24 18:10 14:12 Hospitalization Ordered by Wayne Cooper MD for Observation. Preliminary diagnosis bp is Chest pain, unspecified. Bed requested for Telemetry/MedSurg (observation). Status is Observation. Condition is Stable. Problem is new. Symptoms have improved. pm1 18:45 18:10 10/24/2020 14:12 Hospitalization Ordered by Wayne Cooper MD for Observation. sv Preliminary diagnosis is Chest pain, unspecified. Bed requested for [facility] ER HOLD. Status is Observation. Condition is Stable. Problem is new. Symptoms have improved. bp 19:25 18:45 10/24/2020 14:12 Hospitalization Ordered by Wayne Cooper MD for Observation. dw Preliminary diagnosis is Chest pain, unspecified. Bed requested for Telemetry/MedSurg (Inpatient). Status is Observation. Condition is Stable. Problem is new. Symptoms have improved. sv 19:38 19:25 10/24/2020 14:12 Hospitalization Ordered by Wayne Cooper MD for Observation. mw Preliminary diagnosis is Chest pain, unspecified. Bed requested for Telemetry/MedSurg (Inpatient). Status is Observation. Condition is Stable. Problem is new. Symptoms have improved. dw 20:22 19:38 10/24/2020 14:12 Hospitalization Ordered by Wayne Cooper MD for Observation. ea Preliminary diagnosis is Chest pain, unspecified. Bed requested for Telemetry/MedSurg (Inpatient). Status is Observation. Condition is Stable. Problem is new. Symptoms have improved. mw
--- NOTE | 2020-10-24 14:53 | RAD REPORT ---
EXAM DESCRIPTION: CT - Angio Aorta For Dissection - 10/24/2020 2:31 pm CLINICAL HISTORY: Chest pain radiating to the back. CHEST PAIN COMPARISON: Angio Aorta For Dissection dated 09/06/2019 TECHNIQUE: CT angiography of the aorta was performed with MIPs. All CT scans are performed using dose optimization technique as appropriate and may include automated exposure control or mA/KV adjustment according to patient size. FINDINGS: A left aortic arch is present with normal branching pattern of the great vessels.No acute aortic finding is seen such as aneurysm, penetrating ulcer or dissection. The celiac axis, SMA, OMA and renal arteries demonstrate mild hard plaquing at the origins but are patent. No evidence of pulmonary embolism. The lungs are clear. The liver demonstrates no focal mass or biliary dilatation.The spleen, pancreas, adrenal glands and k idneys are within normal limits for arterial phase imaging. No bowel obstruction, free fluid or abscess.No pathologic enlarged lymphadenopathy identified. Prominent degenerative changes seen in both shoulders. Advanced lumbar spondylosis. IMPRESSION: No acute aortic finding is demonstrated.
[2020-10-24] MEDS ORDERED: FAMOTIDINE 20 MG/2 ML VIAL IV ONE (16:14)
[2020-10-24 21:20] VITALS: BMI 25.6
[2020-10-24 21:21] VITALS: O2SAT 99
[2020-10-24] MEDS ORDERED: cloNIDine HCL 0.1 MG TAB PO PRN (22:46)
[2020-10-25 05:42] LABS: Absolute Lymphocytes (CBC) 1.2 K/uL (0.7-4.9); Basophils % 1.8 % (0-1.3); Hematocrit 31.8 % (36.0-45.0); Lymphocytes % 27.5 % (15.3-44.8); MPV 10.2 fL (7.6-11.3); RBC Red Blood Cell Count 3.07 M/uL (3.86-4.86)
[2020-10-25 05:54] LABS: Potassium 3.4 mmol/L (3.5-5.1)
[2020-10-25] MEDS ORDERED: atenoloL 25 MG TAB PO SCH (06:00)
[2020-10-25] MEDS ORDERED: THYROID 30 MG TAB PO SCH (06:00)
[2020-10-25] MEDS ORDERED: cloNIDine HCL 0.1 MG TAB PO PRN (07:42)
[2020-10-25] MEDS ORDERED: ASPIRIN 81 MG CHEWABLE TABLET PO SCH ×2 (09:00)
[2020-10-25] MEDS ORDERED: HYDRALAZINE HCL 25 MG TABLET PO SCH ×2 (09:00)
[2020-10-25] MEDS ORDERED: FAMOTIDINE 20 MG TAB PO SCH (09:00)
[2020-10-25] MEDS ORDERED: ASPIRIN EC 81 MG TAB PO SCH (09:00)
[2020-10-25 12:01] VITALS: BP 134/64; TEMP 97.9
--- NOTE | 2020-10-25 13:09 | P.SSS ---
Patient History Date of Service: 10/25/20 Reason for admission: CHEST PAIN AND NAUSEA. History of Present Illness: MS. OSUNA HAS UNCONTROLLED HTN AND IS ON MULTIPLE MEDS BUT I AM NOT SURE IF SHE IS COMPLIANT ABOUT MEDS. SHE COMES WITH CHEST PAIN, AND NAUSEA. RULES OUT FOR [place]. CT DISSECTION PROTOCOL IS NEGATIVE. SHE IS PAINFREE NOW. SHE HAD STRESS TEST JUST A FEW MONTHS AGO THAT WAS NEGATIVE. SHE IS STABLE TO GO HOME. I ASKED HER TO VISIT GI DOCTOR AND GET EGD AND COLONOSCOPY DONE. SHE WILL TAKE PEPCID BID FOR NOW. Allergies promethazine HCl [From Phenergan] Allergy (Intermediate, Verified 10/24/20 23:05) Itching/Hives/Rash Home Medications: atenoloL [Tenormin*] 25 mg PO [id number] 06/30/14 cloNIDine HCL [Catapres*] 0.1 mg PO PRN PRN 06/30/14 Thyroid,Pork [Medical Practice Assistant Thyroid] 15 mg PO DAILY 02/08/20 Aspirin 1 tab PO DAILY 10/24/20 Famotidine [Pepcid AC] 1 tab PO DAILY 10/24/20 Hydralazine HCl 50 mg PO TID 10/24/20 - Past Medical/Surgical History Has patient received pneumonia vaccine in the past: Yes Diabetic: No -: hypertension -: GERD -: partial hysterectomy - Family History Brother -: Heart disease Notes: [place] - Social History Smoking Status: Never smoker Alcohol use: No CD- Drugs: No Caffeine use: Yes Place of Residence: Home Review of Systems 10-point ROS is otherwise unremarkable Physical Examination - Vital Signs Temperature: 97.9 F Blood Pressure: 134/64 Pulse: 57 Respirations: 16 Pulse Ox (%): 100 - Physical Exam General: Alert, In no apparent distress HEENT: Atraumatic, PERRLA, Mucous membr. moist/pink, EOMI, Sclerae nonicteric Neck: Supple, 2+ carotid pulse no bruit, No LAD, Without JVD or thyroid abnormality Respiratory: Clear to auscultation bilaterally, Normal air movement Cardiovascular: Regular rate/rhythm, Normal S1 S2 Gastrointestinal: Normal bowel sounds, No tenderness Musculoskeletal: No tenderness Integumentary: No rashes Neurological: Normal gait, Normal speech, Normal strength at 5/5 x4 extr, Normal tone, Normal affect Lymphatics: No axilla or inguinal lymphadenopathy - Studies Laboratory Data (last 24 hrs) 10/24/20 12:35: Sodium 140, Potassium 3.6, BUN 15, Creatinine 0.86, Glucose 128 H, Magnesium 2.2, Total Bilirubin 0.5, AST 18, ALT 27, Alkaline Phosphatase 72 - Diagnosis (Problem(s)) (1) Chest pain Onset Date: 06/30/14 Status: Acute Plan: SOUNDS MORE GI IN CHARACTER THAN CARDIAC PLAN ABOVE. Qualifiers: Chest pain type: precordial pain Qualified Code(s): R07.2 - Precordial pain (2) HTN (hypertension) Status: Chronic Plan: ON MULTIPLE MEDS AND IS BETTER NOW THAN BEFORE. SHE RAN 220 SYSTOLIC BEFORE ALL MEDS WE GOT HER ON. Qualifiers: Hypertension type: essential hypertension Qualified Code(s): I10 - [place] l (primary) hypertension - Disposition Disposition: ROUTINE DISCHARGE
[2020-10-26] MEDS ORDERED: THYROID 30 MG TAB PO SCH (06:00)
[2020-10-26] MEDS ORDERED: atenoloL 25 MG TAB PO SCH (06:00)
--- NOTE | 2020-10-26 07:30 | EKG ---
Test Date: 2020-10-24 Test Time: 11:43:02 Operations General Agent: NIRAJ MEASUREMENT RESULTS: Intervals: Rate: 69 RI: 190 QRSD: 74 QT: 388 QTc: 415 [place]: P: 12 RI: 190 QRS: -8 T: 41 INTERPRETIVE STATEMENTS: Normal sinus rhythm Minimal voltage criteria for LVH, may be normal variant Cannot rule out Anterior infarct, age undetermined Abnormal ECG Compared to ECG 06/23/2020 09:33:11 Left ventricular hypertrophy now present Myocardial infarct finding now present First degree AV block no longer present Electronically Signed On 10-26-20 07:26:57 CDT by Yoan Perez
== END 2020-10-25 12:30 | disposition home health service (06) ==
LOC: ER 11:10 → ERHOLD 15:01 → 2ND 19:33
PROVIDERS: ADMIT Internal Medicine; ATTEND Internal Medicine
DX: R07.9 Chest pain, unspecified (principal); R11.0 Nausea; K21.9 Gastro-esophageal reflux disease without esophagitis; I10 Essential (primary) hypertension; Z20.822 Contact with and (suspected) exposure to COVID-19
CPT/HCPCS: 36415; 71045; 71275; 74175; 80048; 80076; 83735; 83880; 84484; 85025; 85610; 93005; 96374; 99285; G0378; Q9967; U0003

== ENCOUNTER 2021-03-07 02:10 | Emergency (ER) | payer OTHER, MEDICARE ==
[2021-03-07 03:22] LABS: Urine Blood NEGATIVE (Negative); Urine Glucose NEGATIVE (Negative); Urine Protein NEGATIVE (Negative)
[2021-03-07] MEDS ORDERED: AMLODIPINE 10 MG TAB ONE (03:52)
[2021-03-07 03:53] LABS: Absolute Lymphocytes (CBC) 1.7 K/uL (0.7-4.9); Basophils % 1.1 % (0-1.3); Lymphocytes % 33.9 % (15.3-44.8); MPV 9.7 fL (7.6-11.3); RBC Red Blood Cell Count 3.08 M/uL (3.86-4.86)
[2021-03-07] MEDS ORDERED: hydroCHLOROthiazide 25 MG TAB ONE (03:53)
[2021-03-07 03:58] LABS: Protime INR 1.06
[2021-03-07 04:05] LABS: ALT/SGPT 31 U/L (12-78); AST/SGOT 16 U/L (15-37); Albumin 3.9 g/dL (3.4-5.0); Alkaline Phosphatase 66 U/L (45-117); BUN Blood Urea Nitrogen 15 mg/dL (7-18); Bicarbonate 30 mmol/L (21-32); Bilirubin Direct 0.1 mg/dL (0-0.2); Bilirubin Total 0.4 mg/dL (0.2-1.0); Glucose Level 110 mg/dL (74-106); Magnesium 2.2 mg/dL (1.8-2.4); NT PRO-BNP 563 pg/mL (<450); Potassium 3.7 mmol/L (3.5-5.1); Protein, Total 7.6 g/dL (6.4-8.2); Sodium Level 141 mmol/L (136-145); Troponin (Emerg Dept Use Only) < 0.02 ng/mL (0.0-0.045)
--- NOTE | 2021-03-07 04:50 | EDPHYS ---
Physician Documentation [facility] Name: Mulu Ryan Age: 85 yrs Sex: Female : 1935 Arrival Date: 03/07/2021 Time: 02:20 Bed 23 Private MD: ED Physician Geraldo Thurman HPI: 03/07 02:39 This 85 yrs old Black Female presents to ER via Ambulatory with complaints of High jesus Blood Pressure. 02:39 The patient has elevated blood pressure and discovered this at home. Onset: The jesus symptoms/episode began/occurred this morning, yesterday. Modifying factors: The symptoms are aggravated by activity, The symptoms are alleviated by remaining still. Associated signs and symptoms: Pertinent positives: dizziness. Severity of symptoms: At its worst the blood pressure was moderate, in the emergency department the blood pressure is unchanged. The patient has not experienced similar symptoms in the past. Historical: - Allergies: 02:36 Phenergan; wg - Home Meds: 02:36 atenolol oral [Active]; clonidine HCl Oral [Active]; wg - PMHx: 02:36 GERD; Hypertension; Pre-Diabetes; Temporal Arteritis; wg - Immunization history:: Adult Immunizations up to date. - Social history:: Smoking status: Patient denies any tobacco usage or history of. ROS: 02:40 Constitutional: Negative for fever, chills, and weight loss, Eyes: Negative for injury, jesus pain, redness, and discharge, ENT: Negative for injury, pain, and discharge, Neck: Negative for injury, pain, and swelling, Cardiovascular: Negative for chest pain, palpitations, and edema, Respiratory: Negative for shortness of breath, cough, wheezing, and pleuritic chest pain, Abdomen/GI: Negative for abdominal pain, nausea, vomiting, diarrhea, and constipation, Back: Negative for injury and pain, : Negative for injury, bleeding, discharge, and swelling, MS/Extremity: Negative for injury and deformity, Skin: Negative for injury, rash, and discoloration, Psych: Negative for depression, anxiety, suicide ideation, homicidal ideation, and hallucinations, Allergy/Immunology: Negative for hives, rash, and allergies, Endocrine: Negative for neck swelling, polydipsia, polyuria, polyphagia, and marked weight changes, Hematologic/Lymphatic: Negative for swollen nodes, abnormal bleeding, and unusual bruising. 02:40 Neuro: Positive for headache. Exam: 02:40 Constitutional: This is a well developed, well nourished patient who is awake, alert, jesus and in no acute distress. Head/Face: Normocephalic, atraumatic. Eyes: Pupils equal round and reactive to light, extra-ocular motions intact. Lids and lashes normal. Conjunctiva and sclera are non-icteric and not injected. Cornea within normal limits. Periorbital areas with no swelling, redness, or edema. ENT: Nares patent. No nasal discharge, no septal abnormalities noted. Tympanic membranes are normal and external auditory canals are clear. Oropharynx with no redness, swelling, or masses, exudates, or evidence of obstruction, uvula midline. Mucous membranes moist. Neck: Trachea midline, no thyromegaly or masses palpated, and no cervical lymphadenopathy. Supple, full range of motion without nuchal rigidity, or vertebral point tenderness. No Meningismus. Chest/axilla: Normal chest wall appearance and motion. Nontender with no deformity. No lesions are appreciated. Cardiovascular: Regular rate and rhythm with a normal S1 and S2. No gallops, murmurs, or rubs. Normal PMI, no JVD. No pulse deficits. Respiratory: Lungs have equal breath sounds bilaterally, clear to auscultation and percussion. No rales, rhonchi or wheezes noted. No increased work of breathing, no retractions or nasal flaring. Abdomen/GI: Soft, non-tender, with normal bowel sounds. No distension or tympany. No guarding or rebound. No evidence of tenderness throughout. Back: No spinal tenderness. No costovertebral tenderness. Full range of motion. Skin: Warm, dry with normal turgor. Normal color with no rashes, no lesions, and no evidence of cellulitis. MS/ Extremity: Pulses equal, no cyanosis. Neurovascular intact. Full, normal range of motion. Neuro: Awake and alert, GCS 15, oriented to person, place, time, and situation. Cranial nerves II-XII grossly intact. Motor strength 5/5 in all extremities. Sensory grossly intact. Cerebellar exam normal. Normal gait. Psych: Awake, alert, with orientation to person, place and time. Behavior, mood, and affect are within normal limits. 02:40 Neck: ROM/movement: is normal, no acute changes, Meningeal signs: are not present, Kernig's sign is negative, Brudzinski's sign is negative. 02:40 Musculoskeletal/extremity: DVT Exam: No signs of deep vein thrombosis. no pain, no swelling, no tenderness, negative Homans' sign noted on exam, no appreciated bluish discoloration, no erythema, no increased warmth. 03:31 ECG was reviewed by the Attending Physician. [facility] Vital Signs: 02:33 BP 196 / 96; Pulse 62; Resp 18; Temp 98.4; Pulse Ox 100% on R/A; Weight 70.76 kg; wg Height 5 ft. 5 in. (165.10 cm); Pain 9/10; 03:32 BP 196 / 96; Pulse 84; Resp 15; Pulse Ox 100% on R/A; Pain 0/10; bc5 04:18 BP 173 / 74; Pulse 59; Resp 15; Pulse Ox 100% on R/A; Pain 0/10; bc5 05:07 BP 177 / 79; Pulse 51; Resp 16; Temp 98.3(O); Pulse Ox 100% on R/A; Pain 0/10; bc5 02:33 Body Mass Index 25.96 (70.76 kg, 165.10 cm) wg Domonique Coma Score: 02:41 Eye Response: spontaneous(4). Verbal Response: oriented(5). Motor Response: obeys jesus commands(6). Total: 15. MDM: 02:34 Patient medically screened. jesus 02:41 Differential diagnosis: hypertensive crisis, Malignant HTN, CVA. Data reviewed: vital jesus signs, nurses notes, old medical records, lab test result(s), EKG, radiologic studies, plain films. Data interpreted: environmental monitoring technician: rate is 62 beats/min, rhythm is regular, Pulse oximetry: on is 100 %. Test interpretation: by ED physician or midlevel provider: ECG, plain radiologic studies. Counseling: I had a detailed discussion with the patient and/or guardian regarding: the historical points, exam findings, and any diagnostic results supporting the discharge/admit diagnosis, lab results, radiology results, the need for outpatient follow up, for definitive care, a produce department manager, a family practitioner. 03/07 02:38 Order name: Basic Metabolic Panel; Complete Time: 04:48 [facility] 03/07 02:38 Order name: CBC with Diff; Complete Time: 04:48 [facility] 03/07 02:38 Order name: LFT's; Complete Time: 04:48 [facility] 03/07 02:38 Order name: Magnesium; Complete Time: 04:48 [facility] 03/07 02:38 Order name: NT PRO-BNP; Complete Time: 04:48 [facility] 03/07 02:38 Order name: PT-INR; Complete Time: 04:48 [facility] 03/07 02:38 Order name: Troponin (emerg Dept Use Only); Complete Time: 04:48 [facility] 03/07 02:38 Order name: XRAY Chest (1 view) [facility] 03/07 02:38 Order name: EKG; Complete Time: 02:39 [facility] 03/07 02:38 Order name: CT Head Brain wo Cont [facility] 03/07 03:14 Order name: Urine Dipstick--Ancillary (enter results); Complete Time: 03:29 03/07 02:38 Order name: Cardiac monitoring; Complete Time: 03:20 [facility] 03/07 02:38 Order name: EKG - Nurse/Tech; Complete Time: 02:40 [facility] 03/07 02:38 Order name: IV Saline Lock; Complete Time: 03:40 [facility] 03/07 02:38 Order name: Labs collected and sent; Complete Time: 03:40 [facility] 03/07 02:38 Order name: O2 Per Protocol; Complete Time: 02:40 [facility] 03/07 02:38 Order name: O2 Sat Monitoring; Complete Time: 02:40 [facility] 03/07 02:38 Order name: Urine Dipstick-Ancillary (obtain specimen); Complete Time: 03:20 [facility] EC:31 Rate is 60 beats/min. Rhythm is regular. MA interval is prolonged at 210 msec. QRS jesus interval is normal. QT interval is normal. No Q waves. T waves are Normal. No ST changes noted. Clinical impression: Normal ECG, LVH, and No evidence of ischemia. Interpreted by me. Reviewed by me. Administered Medications: 03:31 Drug: Norvasc (amlodipine) 10 mg Route: PO; bc5 03:31 Drug: Hydrochlorothiazide 12.5 mg Route: PO; bc5 04:56 Not Given (Physician Discretion): NS 0.9% 1000 ml IV at 75 ml/hr continuous bc5 Disposition Summary: 03/07/21 04:49 Discharge Ordered Location: Home jesus Problem: new jesus Symptoms: have improved jesus Condition: Stable jesus Diagnosis - Essential (primary) hypertension jesus - Headache jesus Followup: jesus - With: Private Physician - When: 2 - 3 days - Reason: Recheck today's complaints, Continuance of care, Re-evaluation by your physician Followup: jesus - With: - When: 2 - 3 days - Reason: Recheck today's complaints, Continuance of care, Re-evaluation by your physician Discharge Instructions: - Discharge Summary Sheet jesus - Hypertension, Adult jesus - Hypertension, Adult, [id number] jesus - How to Take Your Blood Pressure, [id number] jesus - Managing Your Hypertension jesus Forms: - Medication Reconciliation Form jesus - Thank You Letter jesus - Antibiotic Education jesus - Prescription Opioid Use jesus Prescriptions: - hydrochlorothiazide 12.5 mg Oral capsule - take 1 capsule by ORAL route once daily; 20 capsule; Refills: 0, Product jesus Selection Permitted - Norvasc 5 mg Oral Tablet - take 1 tablet by ORAL route once daily; 20 tablet; Refills: 0, Product jesus Selection Permitted Signatures: Dispatcher [employer] Geraldo Rubin MD MD cha Gamba, Liam, RN Franny Hammond RN RN bc5
--- NOTE | 2021-03-07 04:50 | ER ---
Nurse's Notes [facility] Name: Mulu Ryan Age: 85 yrs Sex: Female : 1935 Arrival Date: 03/07/2021 Time: 02:20 Bed 23 Private MD: Diagnosis: Essential (primary) hypertension;Headache Presentation: 03/07 02:33 Chief complaint: Patient states: Pt states Saturday she noticed her BP was elevated. wg States she has had abd pain RUQ and nausea for a week in black stools, no diarrhea. States she has has a severe headache for the last 2-3 days. Pt denies SOB, CP, dizziness. Pt is ROSE[place]. Coronavirus screen: Vaccine status: Patient reports receiving the 2nd dose of the covid vaccine. Date July 2020. Ebola Screen: Patient negative for fever greater than or equal to 101.5 degrees Fahrenheit, and additional compatible Ebola Virus Disease symptoms Patient denies exposure to infectious person. Patient denies travel to an Ebola-affected area in the 21 days before illness onset. No symptoms or risks identified at this time. Initial Sepsis Screen: Does the patient meet any 2 criteria? No. Patient's initial sepsis screen is negative. Does the patient have a suspected source of infection? No. Patient's initial sepsis screen is negative. Risk Assessment: Do you want to hurt yourself or someone else? Patient reports no desire to harm self or others. Onset of symptoms was February 28, 2021. 02:33 Method Of Arrival: Ambulatory 02:33 Acuity: ROMINA 3 wg Triage Assessment: 02:36 General: Appears uncomfortable, well groomed, well developed, Behavior is calm, wg cooperative, appropriate for age. Pain: Complains of pain in Generalized Headache, RUQ Abd pain. Historical: - Allergies: 02:36 Phenergan; wg - Home Meds: 02:36 atenolol oral [Active]; clonidine HCl Oral [Active]; wg - PMHx: 02:36 GERD; Hypertension; Pre-Diabetes; Temporal Arteritis; wg - Immunization history:: Adult Immunizations up to date. - Social history:: Smoking status: Patient denies any tobacco usage or history of. Screenin:33 Abuse screen: Denies threats or abuse. Denies injuries from another. Nutritional bc5 screening: No deficits noted. Tuberculosis screening: No symptoms or risk factors identified. Fall Risk None identified. No fall in past 12 months (0 pts). No secondary diagnosis (0 pts). No IV (0 pts). Ambulatory Aid- None/Bed Rest/Nurse Assist (0 pts). Gait- Normal/Bed Rest/Wheelchair (0 pts) Mental Status- Oriented to own ability (0 pts). Total Lemons Fall Scale indicates No Risk (0-24 pts). Vital Signs: 02:33 BP 196 / 96; Pulse 62; Resp 18; Temp 98.4; Pulse Ox 100% on R/A; Weight 70.76 kg; wg Height 5 ft. 5 in. (165.10 cm); Pain 9/10; 03:32 BP 196 / 96; Pulse 84; Resp 15; Pulse Ox 100% on R/A; Pain 0/10; bc5 04:18 BP 173 / 74; Pulse 59; Resp 15; Pulse Ox 100% on R/A; Pain 0/10; bc5 05:07 BP 177 / 79; Pulse 51; Resp 16; Temp 98.3(O); Pulse Ox 100% on R/A; Pain 0/10; bc5 02:33 Body Mass Index 25.96 (70.76 kg, 165.10 cm) wg [place] Coma Score: 02:41 Eye Response: spontaneous(4). Verbal Response: oriented(5). Motor Response: obeys jesus commands(6). Total: 15. ED Course: 02:20 Patient arrived in ED. wm 02:25 Franny Carvalho RN is Primary Nurse. bc5 02:34 Geraldo Thurman MD is Attending Physician. jesus 02:36 Triage completed. wg 02:38 Arm band placed on right wrist. EKG completed in triage. Results shown to MD. wg 03:02 CT Head Brain wo Cont In Process Unspecified. EDMS 03:26 XRAY Chest (1 view) In Process Unspecified. EDMS 03:33 Patient has correct armband on for positive identification. Bed in low position. Call bc5 light in reach. Side rails up X2. 03:33 No provider procedures requiring assistance completed. bc5 04:49 Yoan Perez MD is Referral Physician. jesus 05:20 Patient did not have IV access during this emergency room visit. bc5 Administered Medications: 03:31 Drug: Norvasc (amlodipine) 10 mg Route: PO; bc5 03:31 Drug: Hydrochlorothiazide 12.5 mg Route: PO; bc5 04:56 Not Given (Physician Discretion): NS 0.9% 1000 ml IV at 75 ml/hr continuous bc5 Outcome: 04:49 Discharge ordered by . jesus 05:20 Discharged to home ambulatory. bc5 05:20 Condition: stable 05:20 Discharge instructions given to patient, Instructed on discharge instructions, follow up and referral plans. medication usage, Prescriptions given X 2. 05:20 Patient left the ED. bc5 Signatures: Dispatcher [employer] EDMS Geraldo Thurman MD MD cha Marsh, Wendy wm Gamba, Liam, RN Franny Carvalho RN RN bc5 Corrections: (The following items were deleted from the chart) 04:20 04:18 BP 173 / 74; Pulse 80bpm; Resp 15bpm; Pulse Ox 100% RA; Pain 0/10; bc5 bc5
[2021-03-07 05:39] VITALS: O2SAT 100
[2021-03-07 05:43] VITALS: BP 177/79; TEMP 98.3
[2021-03-07 12:57] LABS: Urine Blood Negative (Negative); Urine Glucose Negative (Negative); Urine Protein Negative (Negative)
--- NOTE | 2021-03-07 16:43 | EKG ---
Test Date: 2021-03-07 Test Time: 02:32:41 Lmsw: MEASUREMENT RESULTS: Intervals: Rate: 60 AL: 210 QRSD: 72 QT: 422 QTc: 422 [place]: P: 40 AL: 210 QRS: -9 T: 16 INTERPRETIVE STATEMENTS: Sinus rhythm with 1st degree AV block Moderate voltage criteria for LVH, may be normal variant Borderline ECG No previous ECG available for comparison Electronically Signed On 03-07-21 16:40:58 CDT by Yoan Perez
--- NOTE | 2021-03-07 19:12 | RAD REPORT ---
EXAM DESCRIPTION: CT - Head Brain Wo Cont - 03/07/2021 1:09 pm CLINICAL HISTORY: The patient is 85 years old and is Female; Headache TECHNIQUE: Axial computed tomography images of the head/brain without intravenous contrast. Sagitt al and coronal reformatted images were created and reviewed. This CT exam was performed using one o r more of the following dose reduction techniques: automated exposure control, adjustment of the mA and/or kV according to patient size, and/or use of iterative reconstruction technique. COMPARISON: February 07, 2020. FINDINGS: Brain: Mild nonspecific white matter changes likely related to chronic microvascular isc hemic disease. Mild/moderate cerebral atrophy. No hemorrhage. Ventricles: Moderate ventricular prominence. Bones/joints: Unremarkable. No acute fracture. Soft tissues: Unremarkable. Sinuses: Unremarkable as visualized. Mastoid air cells: Unremarkable as visualized. No mastoid effusion. IMPRESSION: No acute intracranial abnormality. Electronically signed by: Cody Duran MD 03/07/2021 4:03 AM CDT Due to temporary technical issues with the PACS/Fluency reporting system, reports are being signed by the in house radiologist without review as a courtesy to ensure prompt reporting. The interpreting r adiologist is fully responsible for the content of the report.
--- NOTE | 2021-03-07 19:54 | RAD REPORT ---
EXAM DESCRIPTION: RAD - Chest Single View - 03/07/2021 12:54 pm CLINICAL HISTORY: Chest pain, shortness of breath. COMPARISON: Portable chest 10/24/2020 TECHNIQUE: Single view portable chest obtained 0309 hours. FINDINGS: No focal mass or consolidation. Granulomatous calcifications are present. Interstitial pat tern matches the comparison. Mild cardiomegaly is present without vascular engorgement. This is a stable presentation. No pneumothorax or pleural effusion. No acute bone finding. IMPRESSION: 1. No acute cardiopulmonary finding. 2. No significant change from 10/24/2020 imaging.
== END 2021-03-07 05:20 | disposition home or self-care (01) ==
LOC: ER 02:10
DX: I10 Essential (primary) hypertension (principal); Z88.8 Allergy status to other drugs, medicaments and biological substances
CPT/HCPCS: 36415; 70450; 71045; 80048; 80076; 81003; 83735; 83880; 84484; 85025; 85610; 93005; 99283

== ENCOUNTER 2021-06-11 01:21 | Emergency (ER) | payer OTHER, MEDICARE ==
[2021-06-11] MEDS ORDERED: NA CHLORIDE 0.9% 1,000 ML ONE (02:06)
[2021-06-11 02:19] LABS: Urine Blood Negative (Negative); Urine Glucose Negative (Negative); Urine Protein Negative (Negative); Urine Specific Gravity 1.015 (1.005-1.030); Urine pH 6.5 (5.0-7.0)
[2021-06-11] MEDS ORDERED: AMLODIPINE 10 MG TAB ONE (02:34)
[2021-06-11 03:51] LABS: Absolute Lymphocytes (CBC) 1.8 K/uL (0.7-4.9); Hematocrit 31.8 % (36.0-45.0); Lymphocytes % 28.9 % (15.3-44.8); MPV 9.7 fL (7.6-11.3); RBC Red Blood Cell Count 3.03 M/uL (3.86-4.86)
[2021-06-11 03:52] LABS: Protime INR 1.06
[2021-06-11 05:39] LABS: Albumin 3.5 g/dL (3.4-5.0); Bilirubin Direct 0.1 mg/dL (0-0.2); Bilirubin Total 0.4 mg/dL (0.2-1.0); Magnesium 2.4 mg/dL (1.8-2.4); Potassium 3.5 mmol/L (3.5-5.1); Protein, Total 7.2 g/dL (6.4-8.2); Troponin High Sensitivity 13.3 pg/mL (<58.9)
--- NOTE | 2021-06-11 05:54 | EDPHYS ---
Physician Documentation [facility] Name: Mulu Ryan Age: 85 yrs Sex: Female : 1935 Arrival Date: 06/11/2021 Time: 01:25 Bed 24 Private MD: ED Physician Geraldo Thurman HPI: 06/11 02:21 This 85 yrs old Black Female presents to ER via Ambulatory with complaints of High jesus Blood Pressure, Headache. 02:21 The patient has elevated blood pressure and discovered this at home, with a home jesus device. Onset: The symptoms/episode began/occurred this morning. Modifying factors: The symptoms are aggravated by activity. Associated signs and symptoms: Pertinent positives: headache, nausea. Severity of symptoms: At its worst the blood pressure was mild, moderate, in the emergency department the blood pressure is unchanged. The patient has experienced similar episodes in the past, several times. Historical: - Allergies: 01:51 Phenergan; lp1 - Home Meds: 01:51 atenolol 25 mg oral tab [Active]; clonidine HCl 0.1 mg oral tab [Active]; lp1 - PMHx: 01:51 GERD; Hypertension; Pre-Diabetes; Temporal Arteritis; lp1 - Immunization history:: Adult Immunizations up to date, Client reports receiving the 2nd dose of the Covid vaccine. - Social history:: Smoking status: Patient denies any tobacco usage or history of. ROS: 02:23 Constitutional: Negative for fever, chills, and weight loss, Eyes: Negative for injury, jesus pain, redness, and discharge, ENT: Negative for injury, pain, and discharge, Neck: Negative for injury, pain, and swelling, Cardiovascular: Negative for chest pain, palpitations, and edema, Respiratory: Negative for shortness of breath, cough, wheezing, and pleuritic chest pain, Back: Negative for injury and pain, : Negative for injury, bleeding, discharge, and swelling, MS/Extremity: Negative for injury and deformity, Skin: Negative for injury, rash, and discoloration, Psych: Negative for depression, anxiety, suicide ideation, homicidal ideation, and hallucinations, Allergy/Immunology: Negative for hives, rash, and allergies, Endocrine: Negative for neck swelling, polydipsia, polyuria, polyphagia, and marked weight changes, Hematologic/Lymphatic: Negative for swollen nodes, abnormal bleeding, and unusual bruising. 02:23 Abdomen/GI: Positive for abdominal pain, nausea. 02:23 Neuro: Positive for headache. jesus Exam: 02:23 Constitutional: This is a well developed, well nourished patient who is awake, alert, jesus and in no acute distress. Head/Face: Normocephalic, atraumatic. Eyes: Pupils equal round and reactive to light, extra-ocular motions intact. Lids and lashes normal. Conjunctiva and sclera are non-icteric and not injected. Cornea within normal limits. Periorbital areas with no swelling, redness, or edema. ENT: Nares patent. No nasal discharge, no septal abnormalities noted. Tympanic membranes are normal and external auditory canals are clear. Oropharynx with no redness, swelling, or masses, exudates, or evidence of obstruction, uvula midline. Mucous membranes moist. Neck: Trachea midline, no thyromegaly or masses palpated, and no cervical lymphadenopathy. Supple, full range of motion without nuchal rigidity, or vertebral point tenderness. No Meningismus. Chest/axilla: Normal chest wall appearance and motion. Nontender with no deformity. No lesions are appreciated. Cardiovascular: Regular rate and rhythm with a normal S1 and S2. No gallops, murmurs, or rubs. Normal PMI, no JVD. No pulse deficits. Respiratory: Lungs have equal breath sounds bilaterally, clear to auscultation and percussion. No rales, rhonchi or wheezes noted. No increased work of breathing, no retractions or nasal flaring. Abdomen/GI: Soft, non-tender, with normal bowel sounds. No distension or tympany. No guarding or rebound. No evidence of tenderness throughout. Back: No spinal tenderness. No costovertebral tenderness. Full range of motion. Female : Normal external genitalia. Skin: Warm, dry with normal turgor. Normal color with no rashes, no lesions, and no evidence of cellulitis. MS/ Extremity: Pulses equal, no cyanosis. Neurovascular intact. Full, normal range of motion. Neuro: Awake and alert, GCS 15, oriented to person, place, time, and situation. Cranial nerves II-XII grossly intact. Motor strength 5/5 in all extremities. Sensory grossly intact. Cerebellar exam normal. Normal gait. Psych: Awake, alert, with orientation to person, place and time. Behavior, mood, and affect are within normal limits. 02:23 Neck: Thyroid: appears normal, Trachea: is midline with no obvious abnormalities, ROM/movement: limited range of motion, is not appreciated, Meningeal signs: are not present, Kernig's sign is negative, Brudzinski's sign is negative, nuchal rigidity, is not appreciated, Lymph nodes: no appreciated lymphadenopathy. 02:23 ECG was reviewed by the Attending Physician. Vital Signs: 01:38 BP 185 / 82; Pulse 68; Pulse Ox 100% on R/A; silvina 01:45 BP 185 / 82; Pulse 67; Resp 18; Temp 98.2(O); Pulse Ox 99% on R/A; Weight 68.95 kg (R); lp1 Height 5 ft. 5 in. (165.10 cm); Pain 7/10; 02:36 BP 212 / 88; Pulse 65; Resp 18; Temp 98.5; Pulse Ox 100% on R/A; Pain 0/10; silvina 03:33 BP 186 / 78; Pulse 60; Resp 16; Pulse Ox 100% on R/A; silvina 04:16 BP 195 / 73; Pulse 61; Resp 16; Pulse Ox 100% on R/A; silvina 04:40 BP 193 / 82; Pulse 61; Resp 16; Pulse Ox 100% on R/A; silvina 05:13 BP 179 / 72; Pulse 60; sf1 01:45 Body Mass Index 25.29 (68.95 kg, 165.10 cm) lp1 [place] Coma Score: 02:25 Eye Response: spontaneous(4). Verbal Response: oriented(5). Motor Response: obeys jesus commands(6). Total: 15. Procedures: 03:37 Peripheral line: by aseptic technique a peripheral line was placed in the right jesus external jugular vein. MDM: 01:36 Patient medically screened. jesus 02:25 Differential diagnosis: glaucoma, hypertensive crisis, CVA, hypertensive headache, jesus hyponatremia, intracerebral hemorrhage, migraine, subarachnoid bleed, temporal arteritis, tension headache, vasomotor headache. Data reviewed: vital signs, nurses notes, lab test result(s), EKG, radiologic studies, CT scan, plain films. Data interpreted: pvc monitor: rate is 67 beats/min, rhythm is regular, Pulse oximetry: on room air is 99 %. Test interpretation: by ED physician or midlevel provider: ECG, plain radiologic studies. Counseling: I had a detailed discussion with the patient and/or guardian regarding: the historical points, exam findings, and any diagnostic results supporting the discharge/admit diagnosis, lab results, radiology results. 06/11 01:40 Order name: Basic Metabolic Panel [facility] 06/11 01:40 Order name: CBC with Diff [facility] 06/11 01:40 Order name: LFT's; Complete Time: 05:45 [facility] 06/11 01:40 Order name: Magnesium; Complete Time: 05:45 [facility] 06/11 01:40 Order name: NT PRO-BNP; Complete Time: 05:45 [facility] 06/11 01:40 Order name: PT-INR; Complete Time: 04:05 [facility] 06/11 01:40 Order name: Troponin HS; Complete Time: 05:45 [facility] 06/11 01:40 Order name: XRAY Chest (1 view) [facility] 06/11 01:41 Order name: Basic Metabolic Panel; Complete Time: 05:45 [facility] 06/11 01:41 Order name: CBC with Automated Diff; Complete Time: 04:05 [facility] 06/11 01:49 Order name: Sed Rate; Complete Time: 04:32 lp1 06/11 01:49 Order name: CRP; Complete Time: 04:25 lp 06/11 02:18 Order name: Urine Dipstick-Ancillary; Complete Time: 03:07 [facility] 06/11 02:21 Order name: Lipase; Complete Time: 04:05 [facility] 06/11 01:40 Order name: EKG; Complete Time: 01:41 [facility] 06/11 01:40 Order name: Cardiac monitoring; Complete Time: 03:32 [facility] 06/11 01:40 Order name: EKG - Nurse/Tech; Complete Time: 02:19 [facility] 06/11 01:40 Order name: IV Saline Lock; Complete Time: 03:32 [facility] 06/11 01:40 Order name: Labs collected and sent; Complete Time: 03:32 [facility] 06/11 01:40 Order name: O2 Per Protocol; Complete Time: 02:32 [facility] 06/11 01:40 Order name: O2 Sat Monitoring; Complete Time: 02:32 [facility] 06/11 01:40 Order name: Urine Dipstick-Ancillary (obtain specimen); Complete Time: 02:19 [facility] 06/11 01:40 Order name: CT Head Brain wo Cont jesus EC: Rate is 63 beats/min. Rhythm is regular. QRS Sayre is Normal. VA interval is normal. QRS jesus interval is normal. QT interval is normal. No Q waves. T waves are Normal. No ST changes noted. Clinical impression: NSR w/ Non-specific ST/T Changes and No evidence of ischemia. Interpreted by me. Reviewed by me. Administered Medications: 02:30 Drug: Norvasc (amlodipine) 10 mg Route: PO; silvina 03:11 Follow up: Response: No adverse reaction; Blood pressure is unchanged silvina 03:31 Follow up: Response: Blood pressure is lowered silvina 03:32 Drug: NS 0.9% 1000 ml Route: IV; Rate: 125 ml/hr; Site: right jugular; silvina 06:35 Drug: predniSONE 40 mg Route: PO; sf1 Disposition Summary: 06/11/21 05:53 Discharge Ordered Location: Home jesus Problem: new jesus Symptoms: have improved jesus Condition: Stable jesus Diagnosis - Headache jesus - Essential (primary) hypertension jesus - Nausea jesus Followup: jesus - With: Private Physician - When: 2 - 3 days - Reason: Recheck today's complaints, Continuance of care, Re-evaluation by your physician Followup: jesus - With: - When: 2 - 3 days - Reason: Recheck today's complaints, Continuance of care, Re-evaluation by your physician Followup: jesus - With: - When: 2 - 3 days - Reason: Recheck today's complaints, Re-evaluation by your physician Followup: jesus - With: - When: 2 - 3 days - Reason: Recheck today's complaints, Continuance of care, Re-evaluation by your physician Discharge Instructions: - Discharge Summary Sheet jesus - Hypertension, Adult jesus - Nausea, Adult jesus - Hypertension, Adult, [id number] jesus - Managing Your Hypertension jesus Forms: - Medication Reconciliation Form jesus - Thank You Letter jesus - Antibiotic Education jesus - Prescription Opioid Use jesus Prescriptions: - ondansetron 4 mg Oral tablet,disintegrating - take 1 tablet by ORAL route every 8 hours for 5 days; 15 tablet; Refills: 0, jesus Product Selection Permitted - Norvasc 5 mg Oral Tablet - take 1 tablet by ORAL route once daily; 20 tablet; Refills: 0, Product jesus Selection Permitted - Pepcid 20 mg Oral Tablet - take 1 tablet by ORAL route every 12 hours for 10 days; 20 tablet; Refills: 0, [facility] Product Selection Permitted - Medrol (Jose) 4 mg Oral Tablets, Dose Pack - take 1 tablet by ORAL route as directed - follow package instructions; 1 [facility] packet; Refills: 0, Product Selection Permitted Signatures: Dispatcher [employer] Geraldo Rubin MD MD cha Pena, Laura, RN RN lp1 Seth Ochoa FNP-C [id number] Mita Kmuar, RN RN silvina Tyra Woods RN RN sf1
--- NOTE | 2021-06-11 05:54 | ER ---
Nurse's Notes [facility] Name: Mulu Ryan Age: 85 yrs Sex: Female : 1935 Arrival Date: 06/11/2021 Time: 01:25 Bed 24 Private MD: Diagnosis: Headache;Essential (primary) hypertension;Nausea Presentation: 06/11 01:45 Chief complaint: Patient states: headache, neck pain, pressure in head since 1999; Hx lp1 of HTN, reports BP of 209 systolic at home. Coronavirus screen: At this time, the client does not indicate any symptoms associated with coronavirus-19. Ebola Screen: No symptoms or risks identified at this time. Initial Sepsis Screen: Does the patient meet any 2 criteria? No. Patient's initial sepsis screen is negative. Does the patient have a suspected source of infection? No. Patient's initial sepsis screen is negative. Risk Assessment: Do you want to hurt yourself or someone else? Patient reports no desire to harm self or others. Onset of symptoms was June 10, 2021 at 20:00. 01:45 Method Of Arrival: Ambulatory lp1 01:45 Acuity: ROMINA 3 lp1 Triage Assessment: 03:06 Headache History: The patient has had previous headaches and this one is similar to silvina previous episodes. General: Appears in no apparent distress. Irritable. Pain: Pain currently is 4 out of 10 on a pain scale. Pain began gradually, Also complains of "my high pressure". Historical: - Allergies: 01:51 Phenergan; lp1 - Home Meds: 01:51 atenolol 25 mg oral tab [Active]; clonidine HCl 0.1 mg oral tab [Active]; lp1 - PMHx: 01:51 GERD; Hypertension; Pre-Diabetes; Temporal Arteritis; lp1 - Immunization history:: Adult Immunizations up to date, Client reports receiving the 2nd dose of the Covid vaccine. - Social history:: Smoking status: Patient denies any tobacco usage or history of. Screenin:36 Abuse screen: Denies threats or abuse. Denies injuries from another. Nutritional silvina screening: No deficits noted. Tuberculosis screening: No symptoms or risk factors identified. Fall Risk None identified. Assessment: 01:49 General: Pt being taken to CT via stretcher. . silvina 02:05 General: The pt has returned from CT and ambulated to the bathroom with a steady gait. .silvina 02:36 General: Appears in no apparent distress. comfortable, Behavior is calm, Irritable. silvina General: I recv'd the pt \\T\\ 0149 and she was immediately taken to CT. She is in NAD and c/o "high blood pressure". She appears agitated and told me that I couldn't start an IV in her Rt arm as she "has a tumor". 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 I have attempted x 1 for IV access, as well as, another nurse. I have informed my Charge nurse and she said she will try. The pt will be given a warm blanket. . Pain: Denies pain. Neuro: No deficits noted. 03:05 General: The Charge nurse is using the US to find an IV site. . silvina 03:33 General: The MD was able to place a rt. ej and the pt tolerated it well. This after silvina refusing to allow the charge to place an IV using the doppler. At present, she is resting quietly, under many warmed blankets and we are awaiting results. . 03:57 General: A bsc was placed at the pt's bedside, as she is voiding, frequently, without silvina difficulty. . Vital Signs: 01:38 BP 185 / 82; Pulse 68; Pulse Ox 100% on R/A; silvina 01:45 BP 185 / 82; Pulse 67; Resp 18; Temp 98.2(O); Pulse Ox 99% on R/A; Weight 68.95 kg (R); lp1 Height 5 ft. 5 in. (165.10 cm); Pain 7/10; 02:36 BP 212 / 88; Pulse 65; Resp 18; Temp 98.5; Pulse Ox 100% on R/A; Pain 0/10; silvina 03:33 BP 186 / 78; Pulse 60; Resp 16; Pulse Ox 100% on R/A; silvina 04:16 BP 195 / 73; Pulse 61; Resp 16; Pulse Ox 100% on R/A; silvina 04:40 BP 193 / 82; Pulse 61; Resp 16; Pulse Ox 100% on R/A; silvina 05:13 BP 179 / 72; Pulse 60; sf1 01:45 Body Mass Index 25.29 (68.95 kg, 165.10 cm) lp1 Domonique Coma Score: 02:25 Eye Response: spontaneous(4). Verbal Response: oriented(5). Motor Response: obeys jesus commands(6). Total: 15. ED Course: 01:25 Patient arrived in ED. ja2 01:36 Geraldo Thurman MD is Attending Physician. jesus 01:47 Triage completed. lp1 01:47 Arm band placed on right wrist. lp1 01:49 Mita Kumar, RN is Primary Nurse. silvina 02:05 CT Head Brain wo Cont In Process Unspecified. EDMS 02:25 XRAY Chest (1 view) In Process Unspecified. EDMS 02:36 Patient has correct armband on for positive identification. Placed in gown. Bed in low silvina position. Call light in reach. Side rails up X 1. 03:05 No provider procedures requiring assistance completed. silvina 03:29 Missed attempt(s): 22 gauge in left antecubital area. Inserted saline lock: 20 gauge in lp1 right EJ, using aseptic technique. ,using aseptic technique. By Dr. Thurman. 03:31 Lipase Sent. silvina 03:31 CRP Sent. silvina 03:31 Sed Rate Sent. silvina 03:31 CBC with Automated Diff Sent. silvina 03:31 Basic Metabolic Panel Sent. silvina 03:32 Basic Metabolic Panel Sent. silvina 03:32 CBC with Diff Sent. silvina 03:32 LFT's Sent. silvina 03:32 Magnesium Sent. silvina 03:32 NT PRO-BNP Sent. silvina 03:32 PT-INR Sent. silvina 03:32 Troponin HS Sent. silvina 03:33 shelter monitor on. Pulse ox on. NIBP on. Noise minimized. Lights dimmed. Warm blanket silvina given. Verbal reassurance given. 03:33 Inserted saline lock: 18 gauge in right EJ, using aseptic technique. silvina 05:52 Wanye Cooper MD is Referral Physician. jesus 05:52 Yoan Perez MD is Referral Physician. jesus 05:52 Luis Godwin MD is Referral Physician. jesus 06:36 IV discontinued, intact, bleeding controlled, No redness/swelling at site. Pressure sf1 dressing applied. Administered Medications: 02:30 Drug: Norvasc (amlodipine) 10 mg Route: PO; silvina 03:11 Follow up: Response: No adverse reaction; Blood pressure is unchanged silvina 03:31 Follow up: Response: Blood pressure is lowered silvina 03:32 Drug: NS 0.9% 1000 ml Route: IV; Rate: 125 ml/hr; Site: right jugular; silvina 06:35 Drug: predniSONE 40 mg Route: PO; sf1 Outcome: 03:07 Condition: stable silvina 05:53 Discharge ordered by . jesus 06:35 Discharged to home ambulatory. sf1 06:35 Discharge instructions given to patient, Instructed on discharge instructions, follow up and referral plans. Demonstrated understanding of instructions, follow-up care, medications, Prescriptions given X 3. 06:36 Patient left the ED. sf1 Signatures: Dispatcher [employer] EDMS Geraldo Thurman MD MD cha Pena, Laura RN RN lp1 Beryl Aguero Brenda RN Tyra Alexander RN RN sf1
[2021-06-11] MEDS ORDERED: predniSONE 20 MG TAB ONE (06:30)
--- NOTE | 2021-06-11 07:55 | RAD REPORT ---
EXAM DESCRIPTION: RAD - Chest Single View - 06/11/2021 2:25 am CLINICAL HISTORY: COUGH COMPARISON: Chest Single View dated 03/07/2021; Chest Single View dated 10/24/2020; Chest Single View dated 06/23/2020; Chest Single View dated 02/07/2020 FINDINGS: Lines: None. Lungs: No evidence of edema or pneumonia. Calcified pulmonary nodules. Pleural: No significant pleural effusions or pneumothorax. Cardiac: Mild cardiomegaly. Bones: No acute fractures. Other: IMPRESSION: No acute cardiopulmonary disease.
[2021-06-11 11:27] VITALS: TEMP 98.5; O2SAT 100
[2021-06-11 11:32] VITALS: BP 179/72
--- NOTE | 2021-06-12 08:05 | EKG ---
Test Date: 2021-06-11 Test Time: 02:17:20 Financial Developer: MEASUREMENT RESULTS: Intervals: Rate: 63 MT: 184 QRSD: 78 QT: 408 QTc: 417 [place]: P: 32 MT: 184 QRS: -1 T: 45 INTERPRETIVE STATEMENTS: Normal sinus rhythm Cannot rule out Anterior infarct, age undetermined Abnormal ECG Compared to ECG 03/07/2021 02:32:41 Myocardial infarct finding now present First degree AV block no longer present Left ventricular hypertrophy no longer present Electronically Signed On 06-12-21 08:02:55 COVERED BUTTON MAKER by Yoan Perez
--- NOTE | 2021-06-12 11:25 | RAD REPORT ---
EXAM DESCRIPTION: CT - Head Brain Wo Cont - 06/11/2021 4:31 am CLINICAL HISTORY: 85 years, Female, HEADACHE COMPARISON: 03/07/2021. FINDINGS: Multiple transaxial tomograms of the brain were obtained from the base of the skull to the vertex without contrast. 2-D multiplanar reformats and the coronal and sagittal plane were performed and reviewed. This exam was performed according to our departmental dose-optimization protocol, which includes auto mated exposure control, adjustment of the mA and/or kV according to patient size and/or use of iterat julio reconstruction technique. Brain parenchyma demonstrate mild prominence of the sulci and gyri are corresponding to mild cerebral and cerebellar atrophy. There is minimal periventricular white matter changes of microvascular ische shad. There is no midline shift and/or mass effect. There is no evidence for acute intracranial hemorr enedelia. Lateral ventricles and cisterns displace normal appearance. No intra or extra axial fluid c ollections were seen. The calvarium is intact with no evidence for fracture. The visualized portions of the paranasal sinuses and orbits demonstrate to be clear. IMPRESSION: BRAIN ATROPHY WITH PERIVENTRICULAR MATTER CHANGES OF MICROVASCULAR ISCHEMIA. NO ACUTE INTRACRANIAL HEMORRHAGE. Electronically signed by: Crow Laguna MD 06/11/2021 2:20 AM MAT LINKER Due to temporary technical issues with the PACS/Fluency reporting system, reports are being signed by the in house radiologist without review as a courtesy to ensure prompt reporting. The interpreting r adiologist is fully responsible for the content of the report.
== END 2021-06-11 06:36 | disposition home or self-care (01) ==
LOC: ER 01:21
PROC: 05HP33Z Insertion of Infusion Device into Right External Jugular Vein, Percutaneous Approach (ICD-10-PCS; principal; 2021-06-11)
DX: I10 Essential (primary) hypertension (principal); R11.0 Nausea; Z88.8 Allergy status to other drugs, medicaments and biological substances
CPT/HCPCS: 93005; 85025; 80048; 36415; 83735; 85610; 80076; 85652; 81003; 84484; 83690; 83880; 86140; 70450; 71045; 99284; 36569; J7030; J7512

== ENCOUNTER 2022-06-05 18:51 | Emergency (ER) | payer OTHER, MEDICARE ==
--- OUTSIDE RECORDS SUMMARY | 2022-06-05 18:54 | XMS REPORT | Continuity of Care Document ---
:1935 Author Organization [facility] t Address [address] [place] [address] Care Team Providers Name Role Phone Asked, No Pcp Primary Care Physician Unavailable Wayne Cooepr Attending Clinician Unavailable Nikki Lynch Attending Clinician Unavailable Problems Condition Condition Condition Status Onset Resolution Last Treating Co mments Source Name Details Category Date Date Treatment Clinician Date No known No known Disease Metho di active active st problems problems Hospit a l Allergies, Adverse Reactions, Alerts This patient has no known allergies or adverse reactions. Social History Social Habit Start Date Stop Date Quantity Comments Source Alcohol intake 2018-07-09 2018-07-09 Current drinker [facility] 00:00:00 00:00:00 of [facility] (finding) Sex Assigned At [birth year] [facility] 00:[facility]00 [facility] Smoking Status Start Date Stop Date Source Never smoked tobacco [facility] Medications Ordered Filled Start Stop Current Ordering Indication Dosage Frequency Signature Comments Components Source Medication Medication Date Date Medication? Clinician (SIG) Name Name No known No No known [facility] di medications 2-[address] [facility]:00[facility] Procedures This patient has no known procedures. Plan of Care Planned Activity Planned Date Details Comments Source Future Scheduled 2022-05-05 COVID-19 VACCINE (#1) [facility] Test 19:48:18 [code = COVID-19 VACCINE (#1)] Future Scheduled 2022-05-05 SHINGLES VACCINES (1 [facility] Test 19:48:18 of 2) [code = SHINGLES VACCINES (1 of 2)] Future Scheduled 2022-05-05 65+ [facility] [facility] 19:48:18 VACCINE (1 - PCV) [code = 65+ PNEUMOCOCCAL VACCINE (1 - PCV)] Future Scheduled 2022-05-05 INFLUENZA VACCINE [facility] Test 19:48:18 [code = INFLUENZA VACCINE] Encounters Start End Encounter Admission Attending Care Care Encounter Source Date/Time Date/Time Type Type Clinicians Facility Department ID 2021-06-14 Outpatient Kenneth, STLMLC ST[facility] [id number] Common 14:17:09 Wayne [address] [facility] 2021-06-14 Outpatient Kenneth, STLMLC [facility] [id number] Common 13:17:13 Wayne [address] [facility] 2021-06-14 Outpatient STLMLC ST[facility] [id number] Common 13:15:51 [id number] [facility] 2021-06-14 Outpatient STLMLC [facility] [id number] Common 11:58:38 [id number] [facility] 2021-06-14 Outpatient Syed, STLMLC ST[facility] [id number] Common 11:33:31 Nikki [address] [facility] Results This patient has no known results.
[2022-06-05] MEDS ORDERED: METHYLPREDNISOLONE 125 MG INJ ONE (19:13)
[2022-06-05] MEDS ORDERED: ONDANSETRON 4 MG/2 ML VIAL ONE (19:26)
[2022-06-05] MEDS ORDERED: HYDRALAZINE HCL 20 MG/ML VIAL ONE (19:56)
--- NOTE | 2022-06-05 20:39 | RAD REPORT ---
EXAM DESCRIPTION: RAD - Chest Single View - 06/05/2022 8:11 pm CLINICAL HISTORY: CHEST PAIN COMPARISON: Chest Single View dated 06/11/2021; Chest Single View dated 03/07/2021; Chest Single View dated 10/24/2020; Chest Single View dated 06/23/2020 FINDINGS: Lines: None. Lungs: No evidence of edema or pneumonia. Pleural: No significant pleural effusions or pneumothorax. Cardiac: The heart size is within normal limits. Mediastinum: Within normal limits. Bones: No acute fractures. Other: None IMPRESSION: No acute cardiopulmonary disease.
[2022-06-05 20:59] LABS: Protime INR 1.05
[2022-06-05 20:59] LABS: Absolute Lymphocytes (CBC) 1.4 K/uL (0.7-4.9); Hematocrit 32.4 % (36.0-45.0); Lymphocytes % 23.4 % (15.3-44.8); MCV 108.4 fL (80-100); MPV 9.4 fL (7.6-11.3); RBC Red Blood Cell Count 2.99 M/uL (3.86-4.86)
[2022-06-05 21:10] LABS: Albumin 3.8 g/dL (3.4-5.0); Bilirubin Direct 0.1 mg/dL (0-0.2); Bilirubin Total 0.4 mg/dL (0.2-1.0); Potassium 3.3 mmol/L (3.5-5.1); Protein, Total 7.7 g/dL (6.4-8.2); Troponin High Sensitivity 13.3 pg/mL (<58.9)
--- NOTE | 2022-06-05 21:58 | RAD REPORT ---
EXAM DESCRIPTION: CT - Head Brain Wo Cont - 06/05/2022 9:36 pm CLINICAL HISTORY: HTN, headache COMPARISON: Head Brain Wo Cont dated 06/11/2021; Head Brain Wo Cont dated 03/07/2021 TECHNIQUE: All CT scans are performed using dose optimization technique as appropriate and may inclu de automated exposure control or mA/KV adjustment according to patient size. FINDINGS: No intracranial hemorrhage, hydrocephalus or extra-axial fluid collection.No areas of brai n edema or evidence of midline shift. Chronic small vessel ischemic changes. The paranasal sinuses and mastoids are clear. The calvarium is intact. IMPRESSION: No acute intracranial abnormality.
--- NOTE | 2022-06-05 22:01 | RAD REPORT ---
EXAM DESCRIPTION: CTAngio Aorta For Dissection - 06/05/2022 9:41 pm CLINICAL HISTORY: HTN, chest pain/back pain COMPARISON: Angio Aorta For Dissection dated 10/24/2020; Angio Aorta For Dissection dated 09/06/2019 TECHNIQUE: CTA of the chest, abdomen, and pelvis was performed with IV contrast. MIPs of the aorta w ere created. All CT scans are performed using dose optimization technique as appropriate and may include automated exposure control or mA/KV adjustment according to patient size. FINDINGS: Thorax: Chest Wall: No abnormal mass Lungs: No acute abnormality. Pleura: No effusions or pneumothorax. Lara/Mediastinum: No lymphadenopathy. Aorta/Pulmonary Arteries: Unremarkable Heart: Normal size. Abdomen/Pelvis: Liver: No acute abnormality or suspicious lesions. Biliary: No biliary ductal dilatation. Stomach: No significant focal abnormality. Duodenum: No significant focal abnormality. Pancreas: No significant abnormality. Spleen: No significant abnormality. Adrenal: No suspicious lesions. Kidney/ureter: No hydronephrosis. No renal calculi. Retroperitoneum: No retroperitoneal adenopathy. Vascular: No aneurysm. Atherosclerosis . Bowel: No significant focal abnormality. Peritoneum: No ascites or free air. Bladder: Grossly unremarkable. Reproductive: No adnexal masses. Bones: No acute fracture. Other: n/a IMPRESSION: No aortic aneurysm, aortic dissection, or pulmonary embolus identified. No acute finding s identified.
--- NOTE | 2022-06-05 22:10 | ER ---
Nurse's Notes [facility] Name: Mulu Jimenez Age: 86 yrs Sex: Female : 1935 Arrival Date: 06/05/2022 Time: 19:06 Bed 2 Private MD: Wayne Cooper V Diagnosis: Essential (primary) hypertension;Chest pain, unspecified;Abdominal pain, unspecified Presentation: 06/05 19:33 Chief complaint: Patient states: C/o abdominal pain, chest pain, H/A, and high BP at ll3 home. Coronavirus screen: Vaccine status: Patient reports receiving the 2nd dose of the covid vaccine. At this time, the client does not indicate any symptoms associated with coronavirus-19. Ebola Screen: No symptoms or risks identified at this time. Initial Sepsis Screen: Does the patient meet any 2 criteria? No. Patient's initial sepsis screen is negative. Does the patient have a suspected source of infection? No. Patient's initial sepsis screen is negative. Risk Assessment: Do you want to hurt yourself or someone else? Patient reports no desire to harm self or others. Onset of symptoms was June 01, 2021. 19:33 Method Of Arrival: Ambulatory ll3 19:33 Acuity: ROMINA 2 ll3 Historical: - Allergies: 19:36 Phenergan; ll3 - Home Meds: 19:36 atenolol 12.5 mg Oral tab [Active]; clonidine HCl 0.1 mg Oral tab [Active]; ll3 - PMHx: 19:36 GERD; Hypertension; Pre-Diabetes; ll3 21:03 Temporal Arteritis; kd3 - Immunization history:: Client reports receiving the 2nd dose of the Covid vaccine. - Social history:: Smoking status: Patient denies any tobacco usage or history of. - Family history:: not pertinent. - Hospitalizations: : No recent hospitalization is reported. Screenin:02 [facility] ED Fall Risk Assessment (Adult) History of falling in the last 3 months, kd3 including since admission No falls in past 3 months (0 pts) Confusion or Disorientation No (0 pts) Intoxicated or Sedated No (0 pts) Impaired Gait No (0 pts) Mobility Assist Device Used No (0 pt) Altered Elimination No (0 pt) Score/Fall Risk Level 0 - 2 = Low Risk Oriented to surroundings. Abuse screen: Denies threats or abuse. Denies injuries from another. Nutritional screening: No deficits noted. Tuberculosis screening: No symptoms or risk factors identified. Assessment: 20:56 General: Appears in no apparent distress. Behavior is calm, cooperative. Pain: kd3 Complains of pain in chest and abdomen Pain does not radiate. Pain began gradually. Neuro: Level of Consciousness is awake, alert, obeys commands, Oriented to person, place, time, situation. Cardiovascular: Patient's skin is warm and dry. Vital Signs: 19:33 BP 204 / 78; Pulse 72; Resp 18; Temp 98.7(O); Pulse Ox 100% on R/A; Weight 70.31 kg ll3 (R); Height 5 ft. 5 in. (165.10 cm) (R); Pain 9/10; 20:56 BP 217 / 75; Pulse 66; Resp 16; Pulse Ox 100% on R/A; kd3 22:03 BP 198 / 68; Pulse 64; Resp 20; Pulse Ox 100% on R/A; tw5 22:06 BP 175 / 73; rn 22:08 BP 175 / 73; Pulse 66; Resp 20; Pulse Ox 100% on R/A; tw5 19:33 Body Mass Index 25.79 (70.31 kg, 165.10 cm) ll3 ED Course: 19:06 Patient arrived in ED. am2 19:06 Wayne Cooper MD is Private Physician. am2 19:36 Triage completed. ll3 19:36 Arm band placed on. ll3 19:37 Jm Durand MD is Attending Physician. rn 20:13 XRAY Chest (1 view) In Process Unspecified. EDMS 20:23 Shala Moreno is Primary Nurse. tw5 20:45 Inserted saline lock: 22 gauge in left antecubital area, using aseptic technique. Blood oe collected. 21:03 Patient has correct armband on for positive identification. Client placed on continuous kd3 cardiac and pulse oximetry monitoring. NIBP monitoring applied. monitoring analyst on. 21:03 No provider procedures requiring assistance completed. Patient maintains SpO2 kd3 saturation greater than 95% on room air. 21:38 CT Head Brain wo Cont In Process Unspecified. EDMS 21:43 CT Aorta for Dissection In Process Unspecified. EDMS 22:09 Wayne Cooper MD is Referral Physician. rn 22:19 IV discontinued, intact, bleeding controlled, No redness/swelling at site. Pressure kd3 dressing applied. Administered Medications: No medications were administered Medication: 21:03 VIS not applicable for this client. kd3 Outcome: 22:09 Discharge ordered by . rn 22:18 Discharged to home ambulatory. kd3 22:18 Condition: stable 22:18 Discharge instructions given to patient, Instructed on discharge instructions, follow up and referral plans. Demonstrated understanding of instructions, follow-up care. 22:25 Patient left the ED. kd3 Signatures: Dispatcher [employer] EDMS Jm Durand MD MD rn Rk Borjas Amanda am2 Shala Moreno tw5 Shanika Marrero RN RN 3 Kelly Orozco RN RN kd3 Corrections: (The following items were deleted from the chart) 19:38 19:33 Chief complaint: Patient states: C/o abdominal pain, chest pain, and high BP at ll3 home ll3
--- NOTE | 2022-06-05 22:10 | EDPHYS ---
Physician Documentation [facility] Name: Mulu Jimenez Age: 86 yrs Sex: Female : 1935 Arrival Date: 06/05/2022 Time: 19:06 Bed 2 Private MD: Wayne Cooper V ED Physician Jm Durand HPI: 06/05 19:55 This 86 yrs old Black Female presents to ER via Ambulatory with complaints of Chest rn Pain, High Blood Pressure, Abdominal Pain. 19:55 The patient or guardian reports chest pain that is located primarily in the substernal rn area. Onset: 3 day(s) ago. The pain radiates to abdomen. Associated signs and symptoms: Pertinent positives: abdominal pain, chest pain, Pertinent negatives: cough, shortness of breath, syncope. The chest pain is described as aching. Duration: The patient or guardian reports multiple episodes, that are intermittent. Modifying factors: The symptoms are alleviated by nothing. the symptoms are aggravated by nothing. Severity of pain: At its worst the pain was moderate in the emergency department the pain is unchanged. The patient has experienced similar episodes in the past. The patient has not recently seen a physician. Pt reports chest pain/abd pain, began 3 days ago, reports assoc high blood pressure. Just doesn't "feel right". NO focal weakness/numbness. No vomiting/diarrhea/cough/sob. . Historical: - Allergies: 19:36 Phenergan; ll3 - Home Meds: 19:36 atenolol 12.5 mg Oral tab [Active]; clonidine HCl 0.1 mg Oral tab [Active]; ll3 - PMHx: 19:36 GERD; Hypertension; Pre-Diabetes; ll3 21:03 Temporal Arteritis; kd3 - Immunization history:: Client reports receiving the 2nd dose of the Covid vaccine. - Social history:: Smoking status: Patient denies any tobacco usage or history of. - Family history:: not pertinent. - Hospitalizations: : No recent hospitalization is reported. ROS: 20:07 Constitutional: Negative for fever, chills, and weight loss, Eyes: Negative for injury, rn pain, redness, and discharge, Neck: Negative for injury, pain, and swelling, Cardiovascular: + chest pain Respiratory: negative for cough/sob Abdomen/GI: + abd pain MS/Extremity: Negative for injury and deformity, Skin: Negative for injury, rash, and discoloration, Neuro: + headache, no focal weakness/numbness/tingling/vision changes Exam: 20:07 Constitutional: This is a well developed, well nourished patient who is awake, alert, rn and in no acute distress. Seems anxious. Head/Face: Normocephalic, atraumatic. Cardiovascular: Regular rate and rhythm. No pulse deficits. Respiratory: No increased work of breathing, no retractions or nasal flaring. Abdomen/GI: Soft, non-tender Skin: Warm, dry MS/ Extremity: Pulses equal, no cyanosis. Neuro: Awake and alert, GCS 15, oriented to person, place, time, and situation. Cranial nerves II-XII grossly intact. Motor strength 5/5 in all extremities. Sensory grossly intact. Cerebellar exam normal. 20:17 ECG was reviewed by the Attending Physician. rn Vital Signs: 19:33 BP 204 / 78; Pulse 72; Resp 18; Temp 98.7(O); Pulse Ox 100% on R/A; Weight 70.31 kg ll3 (R); Height 5 ft. 5 in. (165.10 cm) (R); Pain 9/10; 20:56 BP 217 / 75; Pulse 66; Resp 16; Pulse Ox 100% on R/A; kd3 22:03 BP 198 / 68; Pulse 64; Resp 20; Pulse Ox 100% on R/A; tw5 22:06 BP 175 / 73; rn 22:08 BP 175 / 73; Pulse 66; Resp 20; Pulse Ox 100% on R/A; tw5 19:33 Body Mass Index 25.79 (70.31 kg, 165.10 cm) ll3 MDM: 19:37 Patient medically screened. rn 22:06 Differential diagnosis: acute myocardial infarction, acute pericarditis, anxiety, rn coronary artery disease costochondritis, gastritis, gastroesophageal reflux disease (GERD), pneumothorax, thoracic aortic disection, HTN. Data reviewed: vital signs, nurses notes, lab test result(s), EKG, radiologic studies, CT scan, and as a result, I will discharge patient. Counseling: I had a detailed discussion with the patient and/or guardian regarding: the historical points, exam findings, and any diagnostic results supporting the discharge/admit diagnosis, lab results, radiology results, the need for outpatient follow up, to return to the emergency department if symptoms worsen or persist or if there are any questions or concerns that arise at home. Special discussion: I discussed with the patient/guardian in detail that at this point there is no indication for admission to the hospital. It is understood, however, that if the symptoms persist or worsen the patient needs to return immediately for re-evaluation. Based on the history and exam findings, there is no indication for further emergent testing or inpatient evaluation. I discussed with the patient/guardian the need to see the primary care provider for further evaluation of the symptoms. ED course: Pt without acute abnormality in CT aorta. CT head neg. No acute abnormality of renal function or troponin. Will dc home with pcp f/u. Has had multiple visits to ER for HTN related problems with neg w/u. No indication for emergent admission or further testing at this time. BP down to 175/73 without intervention. . 06/05 19:38 Order name: Basic Metabolic Panel; Complete Time: 21:51 06/05 19:38 Order name: CBC with Diff; Complete Time: :06/05 19:38 Order name: LFT's; Complete Time: 21:51 06/05 19:38 Order name: NT PRO-BNP; Complete Time: 21:51 06/05 19:38 Order name: PT-INR; Complete Time: 21:51 06/05 19:38 Order name: Troponin HS; Complete Time: 21:51 06/05 19:38 Order name: XRAY Chest (1 view); Complete Time: 21:51 06/05 19:38 Order name: EKG; Complete Time: 19:39 06/05 19:38 Order name: Cardiac monitoring; Complete Time: 20:43 06/05 19:38 Order name: EKG - Nurse/Tech; Complete Time: 20:43 06/05 19:38 Order name: IV Saline Lock; Complete Time: 20:42 06/05 19:38 Order name: Labs collected and sent; Complete Time: 20:42 06/05 19:38 Order name: CT Aorta for Dissection; Complete Time: 22:06 06/05 19:44 Order name: CT Head Brain wo Cont; Complete Time: 22:06/05 19:38 Order name: O2 Per Protocol; Complete Time: 20:42 rn 06/05 19:38 Order name: O2 Sat Monitoring; Complete Time: 20:42 rn EC: Rate is 72 beats/min. Rhythm is regular. QRS [place] is Normal. IA interval is normal. QRS rn interval is normal. QT interval is normal. No Q waves. T waves are Normal. No ST changes noted. Clinical impression: NSR w/ Non-specific ST/T Changes. Interpreted by me. Reviewed by me. Administered Medications: No medications were administered Disposition Summary: 06/05/22 22:09 Discharge Ordered Location: Home rn Problem: an ongoing problem rn Symptoms: have improved rn Condition: Stable rn Diagnosis - Essential (primary) hypertension rn - Chest pain, unspecified rn - Abdominal pain, unspecified rn Followup: rn - With: Wayne Cooper MD - When: 2 - 3 days - Reason: Recheck today's complaints, Re-evaluation by your physician Discharge Instructions: - Discharge Summary Sheet rn - Abdominal Pain, Adult rn - Nonspecific Chest Pain, Adult rn - Hypertension, Adult rn - Pain Without a Known Cause rn - Managing Your Hypertension rn Forms: - Medication Reconciliation Form rn - Thank You Letter rn - Antibiotic rn bone marrow transplant - Prescription Opioid Use rn Signatures: Dispatcher [employer] EDMS Jm Durand MD MD rn Loubet, Lynsea, RN RN ll3 Kelly Orozco, RN RN kd3
[2022-06-05 23:19] VITALS: TEMP 98.7; O2SAT 100
[2022-06-05 23:31] VITALS: BP 175/73
== END 2022-06-05 22:25 | disposition home or self-care (01) ==
LOC: ER 18:51
DX: R07.89 Other chest pain (principal); I10 Essential (primary) hypertension; R10.9 Unspecified abdominal pain; R51.9 Headache, unspecified; R73.03 Prediabetes; Z88.8 Allergy status to other drugs, medicaments and biological substances
CPT/HCPCS: 85025; 80048; 36415; 85610; 80076; 84484; 83880; 70450; 71275; 74175; 71045; Q9967; J0360; J2405; J2930